=== PATIENT | male | born 1940 | race Caucasian/White ===

== ENCOUNTER 2024-10-30 10:39 | Inpatient (IN) ==
[2024-10-30] MEDS: SODIUM CHLORIDE 0.9% 1,000 ML IV ONE (11:46)
--- NOTE | 2024-10-30 11:49 | XRay Report ---
EXAM: Radiographs of the Right Ankle 3 Views INDICATION: Nonhealing wounds. TECHNIQUE: Frontal, lateral and oblique views of the right ankle. COMPARISON: No relevant prior studies available. FINDINGS: Limitations: None. Bones/joints: Well-corticated ossicle noted adjacent to the tip of the medial malleolus likely related to old fracture. No acute fracture. There is mild smooth undulation in cortical thickening of the lateral aspect of the distal fibula subjacent to the cutaneous erosion. Soft tissues: No abnormality noted. No radiopaque foreign body noted. Vasculature: There is a cutaneous ulcer over the lateral distal fibula. There is no soft tissue gas. Dense atherosclerotic calcifications present. IMPRESSION: Cutaneous ulceration noted over the lateral distal fibula. The underlying cortex is somewhat hypertrophic which may indicate chronic osteomyelitis. No definite acute destructive changes. ACT 112: N/A Electronically signed by Kenia Bergeron 10-30-2024 11:49 AM
[2024-10-30 11:50] LABS: Hematocrit (blood only) 42.5 % (42.0-52.0); Hemoglobin 14.1 g/dl (14.0-18.0); Immature Granulocytes # (auto) 0.10 K/uL (0.01-0.20); Immature Granulocytes % (auto) 0.8 %; Mean Corpuscular Hemoglobin 31.8 pg (25.0-34.0); Mean Corpuscular Volume 95.7 fL (80.0-100.0); Platelet Count 314 K/uL (130-400); RDW Standard Deviation 49.1 fL (36.4-46.3); Red Blood Count 4.44 M/uL (4.70-6.10); White Blood Count 12.84 K/ul (4.8-10.8)
--- NOTE | 2024-10-30 11:53 | XRay Report ---
EXAM: Radiographs of the Left Foot Complete 3 Views INDICATION: Nonhealing wounds TECHNIQUE: Frontal, lateral and oblique views of the left foot. COMPARISON: No relevant prior studies available. FINDINGS: Bones/joints: The bones are demineralized. There is mild joint space narrowing. There is suboptimal assessment of the fourth proximal phalanx which appears somewhat angulated. No visible periosteal reaction. Soft tissues: There is a cutaneous wound seen on the lateral view plantar to the proximal metatarsals. No tracking gas. Dense atherosclerosis. Diffuse soft tissue swelling. IMPRESSION: 1. Plantar midfoot ulcer. 2. Suboptimal assessment of the fourth proximal phalanx which could be fractured or eroded. Correlate clinically. ACT 112: N/A Electronically signed by Kenia Bergeron 10-30-2024 11:53 AM
--- NOTE | 2024-10-30 11:55 | XRay Report ---
EXAM: Radiographs of the Right Foot Complete 3 Views INDICATION: Nonhealing wounds. TECHNIQUE: Frontal, lateral and oblique views of the right foot. COMPARISON: No relevant prior studies available. 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 The bones are generally demineralized. There is mild narrowing of the joints. No erosion or fracture. Soft tissues: Mild generalized soft tissue swelling. Dense atherosclerotic calcification noted. No radiopaque foreign body identified. No tracking gas. IMPRESSION: Soft tissue swelling. Chronic changes of the osseous structures. No acute abnormality. ACT 112: N/A Electronically signed by Kenia Bergeron 10-30-2024 11:55 AM
--- NOTE | 2024-10-30 11:58 | Emergency Department Note ---
History of Present Illness General Chief complaint: Infection, Wound Time Seen by Provider: 10/30/24 10:43 History of Present Illness Provider complaint: Wound infection 84-year-old male presents emergency department for wound infection. Patient has had wounds to his feet and toes for significant amount of time which have been getting worse. [facility] for worsening of the wounds. Home Medications Medication Instructions Recorded Confirmed Type apixaban 5 mg tablet (Eliquis) 5 mg PO BID 10/30/24 10/30/24 History furosemide 20 mg tablet 20 mg PO DAILY 10/30/24 10/30/24 History insulin glargine 100 unit/mL (3 0 unit subcut HS 10/30/24 10/30/24 History mL) subcutaneous pen (Lantus Solostar U-100 Insulin) lactulose 10 gram/15 mL oral 0 ml PO BID 10/30/24 10/30/24 History solution metoprolol succinate 100 mg 0 mg PO DAILY 10/30/24 10/30/24 History tablet,extended release 24 hr spironolactone 25 mg tablet 25 mg PO BID 10/30/24 10/30/24 History trazodone 50 mg tablet 50 mg PO DAILY 10/30/24 10/30/24 History Past Med/Surg History Problem List (Updated 10/30/24 @ 16:29 by Jt Ahmadi MD) Peripheral vascular disease due to secondary diabetes Diabetic foot ulcers (Acute) Diabetic ulcer of foot associated with diabetes mellitus due to underlying condition, 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 Medical History (Updated 10/30/24 @ 16:29 by Jt Ahmadi MD) Cognitive dysfunction Hepatocellular carcinoma PVD (peripheral vascular disease) CKD (chronic kidney disease) Pulmonary emboli Dyslipidemia HTN (hypertension) Alcoholic cirrhosis Amputation toe Sepsis Atrial fibrillation Social History Smoking Status: Never smoker Preferred Language: Slovenian Feels Safe at Home: Yes Physical Exam Vital Signs Vital Signs - 24 hr 10/30/24 10:51 10/30/24 10:52 10/30/24 11:30 Temperature 36.9 C Temperature Source Oral Pulse Rate 84 84 79 Pulse Rate [Finger] Pulse Rate from SpO2 Sensor Respiratory Rate 96 H 26 H Respiratory Effort / Characteristics Non-Labored Spontaneous Respiratory Depth Normal Respiratory Pattern Regular Blood Pressure 127/72 Blood Pressure [Right Arm] Blood Pressure Mean 90 Blood Pressure Mean [Right Arm] Pulse Oximetry 96 Oxygen Delivery Method Room Air Sepsis Recent Fever Within 48 Hours No Sepsis New/Unexplained Change in Mental Status No Sepsis Action Taken by Nursing No Action Required 10/30/24 12:00 10/30/24 12:33 10/30/24 13:30 Temperature Temperature Source Pulse Rate 83 80 87 Pulse Rate [Finger] Pulse Rate from SpO2 Sensor 83 83 89 Respiratory Rate 23 27 H 30 H Respiratory Effort / Characteristics Respiratory Depth Respiratory Pattern Blood Pressure 157/92 H 123/98 Blood Pressure [Right Arm] Blood Pressure Mean 113 106 Blood Pressure Mean [Right Arm] Pulse Oximetry 97 97 96 Oxygen Delivery Method Sepsis Recent Fever Within 48 Hours Sepsis New/Unexplained Change in Mental Status Sepsis Action Taken by Nursing 10/30/24 14:15 10/30/24 14:36 10/30/24 15:00 Temperature Temperature Source Pulse Rate 93 H 86 86 Pulse Rate [Finger] Pulse Rate from SpO2 Sensor 88 84 81 Respiratory Rate 19 23 23 Respiratory Effort / Characteristics Respiratory Depth Respiratory Pattern Blood Pressure 146/99 H Blood Pressure [Right Arm] Blood Pressure Mean 114 Blood Pressure Mean [Right Arm] Pulse Oximetry 97 97 100 Oxygen Delivery Method Sepsis Recent Fever Within 48 Hours Sepsis New/Unexplained Change in Mental Status Sepsis Action Taken by Nursing 10/30/24 15:14 10/30/24 15:33 10/30/24 15:33 Temperature Temperature Source Pulse Rate 84 89 Pulse Rate [Finger] 89 Pulse Rate from SpO2 Sensor Respiratory Rate 16 16 Respiratory Effort / Characteristics Non-Labored Spontaneous Respiratory Depth Respiratory Pattern Blood Pressure Blood Pressure [Right Arm] 143/89 H Blood Pressure Mean Blood Pressure Mean [Right Arm] 107 Pulse Oximetry 95 95 Oxygen Delivery Method Room Air Room Air Sepsis Recent Fever Within 48 Hours Sepsis New/Unexplained Change in Mental Status Sepsis Action Taken by Nursing Physical Exam GENERAL: Ill-appearing. HENT: Exam performed. - Head: Normocephalic and atraumatic. CV: Normal rate, irregular rhythm, normal heart sounds. PULM/CHEST: Effort normal and breath sounds normal. No respiratory distress. No stridor. no wheezes. no rales. ABD: The abdomen is soft. There is no tenderness. MUSC: Mummified feet with multiple ulcers over the malleoli Course Course 1043: The patient was evaluated in room B8. A complete history and physical exam was performed Cardiac monitoring: An order was placed for continuous cardiac monitoring. The monitor shows a rate of 90 with atrial fibrilation rhythm interpreted by me 1236: Vital signs stable. Labs show minimally elevated lactic acid. Patient treated with broad-spectrum antibiotics. IV fluids ordered for the patient. Discussed case with Dr. Oconnell podiatry via [place] text. He states to admit to medicine and he will evaluate the patient in the morning. He states he will wait to see the if vascular has any input. 1250: Discussed the case with Dr. Burrell vascular surgery who stated to stop the Eliquis and either start the patient on heparin drip or Lovenox shots twice daily. He states he will evaluate the patient tomorrow morning. Hospitalist team was made aware of the patient. Administered Medications Discontinued Medications Sodium Chloride (Nss) 1,000 mls @ 999 mls/hr IV .Q1H1M ONE Stop: 10/30/24 12:40 Last Infusion: 10/30/24 14:20 Dose: Infused Documented By: Admin: 10/30/24 11:46 Dose: 999 mls/hr Documented By: CEF Piperacillin Sod/Tazobactam Sod (Zosyn) 4.5 gm in 120 mls @ 240 mls/hr IV NOW ONE Stop: 10/30/24 12:42 Last Infusion: 10/30/24 15:25 Dose: Infused Documented By: Admin: 10/30/24 14:19 Dose: 240 mls/hr Documented By: CEF Vancomycin HCl 2,000 mg/ (Sodium Chloride) 540 mls @ 200 mls/hr IV NOW ONE Stop: 10/30/24 14:54 Last Infusion: 10/30/24 15:25 Dose: Infused Documented By: Admin: 10/30/24 12:30 Dose: 200 mls/hr Documented By: EVA Medical Decision Making Medical Records Attestation: I reviewed the patient's medical records. External medical records reviewed and the patient's history is obtained from the [facility] chart. Patient had a lower extremity Doppler arterial study performed on November 04, 2023 which showed a right anterior tibial artery 50 to 69% stenosis and a right peroneal artery stenosis of greater than 70%. Laboratory Data Attestation: I reviewed the patient's lab results. 10/30/24 11:15 10/30/24 11:15 Lab Results 10/30/24 10/30/24 Range/Units 11:15 13:11 WBC 12.84 H (4.8-10.8) K/ul RBC 4.44 L (4.70-6.10) M/uL Hgb 14.1 (14.0-18.0) g/dl Hct 42.5 (42.0-52.0) % MCV 95.7 (80.0-100.0) fL MCH 31.8 (25.0-34.0) pg MCHC 33.2 (32.0-36.0) g/dL RDW Std Deviation 49.1 H (36.4-46.3) fL RDW Coeff of Cici 13.8 (11.5-14.5) % Plt Count 314 (130-400) K/uL MPV 9.5 (9.4-12.4) fL Immature Gran % (Auto) 0.8 % Neut % (Auto) 73.3 % Lymph % (Auto) 12.8 % Story % (Auto) 11.1 % Eos % (Auto) 1.5 % Baso % (Auto) 0.5 % Neut # (Auto) 9.43 H (1.40-6.50) K/uL Lymph # (Auto) 1.64 (1.20-3.40) K/uL Story # (Auto) 1.42 H (0.11-0.59) K/uL Eos # (Auto) 0.19 (0.00-0.50) K/uL Baso # (Auto) 0.06 (0.00-0.20) K/uL Immature Gran # (Auto) 0.10 (0.01-0.20) K/uL PT 14.1 H (9.0-12.0) Seconds INR 1.3 H (0.9-1.1) APTT 37 H (21-31) Seconds PTT Ratio 1.4 Sodium 131 L (136-145) mmol/L Potassium 4.6 (3.5-5.1) mmol/L Chloride 97 L (98-107) mmol/L Carbon Dioxide 29 (21-32) mmol/L Anion Gap 5 (3-11) BUN 20 (6-23) mg/dl Creatinine 0.86 (0.6-1.4) mg/dl Est Cr Clr Drug Dosing 79.3 ml/min eGFR 86.45 BUN/Creatinine Ratio 23.3 H (10-20) Glucose 186 H (70-99(Fasting)) mg/dl Lactate 2.6 H* 1.9 (0.4-2.0) mmol/L Calcium 9.5 (8.6-10.3) mg/dl Procalcitonin 0.33 (0-0.5) ng/ml Imaging Data Radiologist's Impression: Ankle X-Ray 10/30/24 10:50 EXAM: Radiographs of the Left Ankle 3 Views INDICATION: Nonhealing wounds TECHNIQUE: Frontal, lateral and oblique views of the left ankle. COMPARISON: No relevant prior studies available. FINDINGS: Limitations: None. Bones/joints: Probable old fracture of the distal tibia. No acute fracture. No periosteal reaction or erosion. Soft tissues: There is diffuse mild soft tissue swelling. There is a skin defect plantar to the level of the proximal metatarsal seen on the lateral view. Dense atherosclerotic calcification present. No tracking soft tissue gas. No radiopaque foreign body. IMPRESSION: 1. Mild soft tissue swelling. With plantar midfoot wound. 2. No acute osseous abnormality. ACT 112: N/A Electronically signed by Kenia Bergeron 10-30-2024 11:56 AM Ankle X-Ray 10/30/24 10:50 EXAM: Radiographs of the Right Ankle 3 Views INDICATION: Nonhealing wounds. TECHNIQUE: Frontal, lateral and oblique views of the right ankle. COMPARISON: No relevant prior studies available. FINDINGS: Limitations: None. Bones/joints: Well-corticated ossicle noted adjacent to the tip of the medial malleolus likely related to old fracture. No acute fracture. There is mild smooth undulation in cortical thickening of the lateral aspect of the distal fibula subjacent to the cutaneous erosion. Soft tissues: No abnormality noted. No radiopaque foreign body noted. Vasculature: There is a cutaneous ulcer over the lateral distal fibula. There is no soft tissue gas. Dense atherosclerotic calcifications present. IMPRESSION: Cutaneous ulceration noted over the lateral distal fibula. The underlying cortex is somewhat hypertrophic which may indicate chronic osteomyelitis. No definite acute destructive changes. ACT 112: N/A Electronically signed by Kenia Bergeron 10-30-2024 11:49 AM Foot X-Ray 10/30/24 10:50 EXAM: Radiographs of the Left Foot Complete 3 Views INDICATION: Nonhealing wounds TECHNIQUE: Frontal, lateral and oblique views of the left foot. COMPARISON: No relevant prior studies available. FINDINGS: Bones/joints: The bones are demineralized. There is mild joint space narrowing. There is suboptimal assessment of the fourth proximal phalanx which appears somewhat angulated. No visible periosteal reaction. Soft tissues: There is a cutaneous wound seen on the lateral view plantar to the proximal metatarsals. No tracking gas. Dense atherosclerosis. Diffuse soft tissue swelling. IMPRESSION: 1. Plantar midfoot ulcer. 2. Suboptimal assessment of the fourth proximal phalanx which could be fractured or eroded. Correlate clinically. ACT 112: N/A Electronically signed by Kenia Bergeron 10-30-2024 11:53 AM Foot X-Ray 10/30/24 10:50 EXAM: Radiographs of the Right Foot Complete 3 Views INDICATION: Nonhealing wounds. TECHNIQUE: Frontal, lateral and oblique views of the right foot. COMPARISON: No relevant prior studies available. 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 The bones are generally demineralized. There is mild narrowing of the joints. No erosion or fracture. Soft tissues: Mild generalized soft tissue swelling. Dense atherosclerotic calcification noted. No radiopaque foreign body identified. No tracking gas. IMPRESSION: Soft tissue swelling. Chronic changes of the osseous structures. No acute abnormality. ACT 112: N/A Electronically signed by Kenia Bergeron 10-30-2024 11:55 AM ECG Data Attestation: I personally reviewed and interpreted this ECG as follows: Rate (beats per minute): 89 Rhythm: + atrial fibrillation ECG Intervals/blocks: + Normal QRS and + Normal QT-c ECG ST segments: + Normal ST segments and + T-wave inversions (Leads II aVF V4 V5 V6) [facility] Narrative 1043: The patient was evaluated in room B8. A complete history and physical exam was performed Cardiac monitoring: An order was placed for continuous cardiac monitoring. The monitor shows a rate of 90 with atrial fibrilation rhythm interpreted by me 1236: Vital signs stable. Labs show minimally elevated lactic acid. Patient treated with broad-spectrum antibiotics. IV fluids ordered for the patient. Discussed case with Dr. Oconnell podiatry via [place] text. He states to admit to medicine and he will evaluate the patient in the morning. He states he will wait to see the if vascular has any input. 1250: Discussed the case with Dr. Burrell vascular surgery who stated to stop the Eliquis and either start the patient on heparin drip or Lovenox shots twice daily. He states he will evaluate the patient tomorrow morning. Hospitalist team was made aware of the patient. Impression & Plan Diabetic foot ulcers Discharge Plan Visit Data Chief Complaint: Infection, Wound ED Provider: Jt Ahmadi Discharge Problem: Diabetic foot ulcers Patient Disposition: Admitted As Inpatient Condition: Fair Forms Stand Alone Forms: My [facility] Prescriptions Prescriptions: No Action trazodone 50 mg tablet 50 mg PO DAILY metoprolol succinate 100 mg tablet extended release 24 hr 0 mg PO DAILY Patient Comments: 10/30-last filled 05/17 90 day supply #90 spironolactone 25 mg tablet 25 mg PO BID furosemide 20 mg tablet 20 mg PO DAILY insulin glargine [Lantus Solostar U-100 Insulin] 100 unit/mL (3 mL) insulin pen 0 unit SUBCUT HS Patient Comments: 10/30- filled 05/04 84 day supply as 18 u subcut hs Eliquis 5 mg tablet 5 mg PO BID lactulose 10 gram/15 mL solution 0 ml PO BID Patient Comments: 10/30- last filled 07/19 32 day supply. 15ml po bid Referrals Referrals: Adonay Arzola MD [Primary Care Provider] -
[2024-10-30 12:11] LABS: Anion Gap 5.0 (3-11); Blood Urea Nitrogen 20.0 mg/dl (6-23); Calcium 9.5 mg/dl (8.6-10.3); Carbon Dioxide 29.0 mmol/L (21-32); Chloride 97.0 mmol/L (98-107); Creatinine Clr Calc Pharmacy 79.3 ml/min; Glucose 186.0 mg/dl (70-99(Fasting)); Potassium 4.6 mmol/L (3.5-5.1); Sodium 131.0 mmol/L (136-145)
[2024-10-30] MEDS ORDERED: VANCOMYCIN CONSULT ACTIVE PRN (12:13)
[2024-10-30 12:20] LABS: INR 1.3 (0.9-1.1); Partial Thromboplastin Time 37 Seconds (21-31); Prothrombin Time 14.1 Seconds (9.0-12.0)
[2024-10-30] MEDS: VANCOMYCIN HCL 2,000 MG in SODIUM CHLORIDE 0.9% 500 ML IV ONE (12:30)
--- NOTE | 2024-10-30 13:56 | History & Physical Report ---
Date of Service October 30, 2024 Assessment & Plan (1) Diabetic ulcer of foot associated with diabetes mellitus due to underlying condition, with necrosis of muscle: (2) Diabetic foot ulcers: (3) Insulin-requiring or dependent type II diabetes mellitus: (4) Atrial fibrillation: (5) Peripheral vascular disease due to secondary diabetes: Plan Patient 84-year-old gentleman resident [facility] presents with worsening diabetic foot ulcerations and evidence of necrosis of the left toes. Patient requires hospital level care and interventions, IV antibiotics and specialty consultation Admit to the MedSurg unit Continue Zosyn and vancomycin Consult podiatry Consult vascular surgery Monitor glucose and cover with insulin, request pharmacy management Hold Eliquis, communication with vascular surgery okay to proceed with Lovenox twice daily, will hold if any type of procedure anticipated. Anticipate patient may need send asked surgeries prior to any type of surgical intervention on the foot. High suspicion patient will need surgical intervention on foot and most likely amputation of the toes at minimum. Therapy evaluation Case management to coordinate return to [facility] History of Present Illness Chief Complaint: Black foot Primary Care Provider: Adonay Arzola MD Patient 84-year-old gentleman resident at [facility] sent send to the emergency room with increasing severity of wounds on his foot and toes becoming necrotic. In the emergency room patient had obvious necrotic toes and slightly elevated white blood cell count. Was referred to our service for further evaluation and treatment after received some IV antibiotics. ED physician did send pictures to podiatry and vascular surgery. They recommended continuing antibiotics and will evaluate for possible interventions tomorrow. Time my evaluation patient really did have any complaints. He really could not contribute much at all to his history. He denied any specific pain. Not sure when he started noticed the feet were black. Reviewing minimal records sent from the nursing facility indicated that of the foot seem to acutely worsen over the last 24 hours or so. Extremely limited information sent from the [facility]. Home Medications Medication Instructions Recorded Confirmed Type apixaban 5 mg tablet (Eliquis) 5 mg PO BID 10/30/24 10/30/24 History furosemide 20 mg tablet 20 mg PO DAILY 10/30/24 10/30/24 History insulin glargine 100 unit/mL (3 0 unit subcut HS 10/30/24 10/30/24 History mL) subcutaneous pen (Lantus Solostar U-100 Insulin) lactulose 10 gram/15 mL oral 0 ml PO BID 10/30/24 10/30/24 History solution metoprolol succinate 100 mg 0 mg PO DAILY 10/30/24 10/30/24 History tablet,extended release 24 hr spironolactone 25 mg tablet 25 mg PO BID 10/30/24 10/30/24 History trazodone 50 mg tablet 50 mg PO DAILY 10/30/24 10/30/24 History Past Med/Surg History Problem List (Updated 10/30/24 @ 13:54 by Ed Edwards DO) Peripheral vascular disease due to secondary diabetes Diabetic foot ulcers Diabetic ulcer of foot associated with diabetes mellitus due to underlying condition, 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 Medical History (Updated 10/30/24 @ 13:54 by Ed Edwards DO) Sepsis Atrial fibrillation Social History Smoking Status: Never smoker Preferred Language: [place] Rican Feels Safe at Home: Yes Review of Systems Review of Systems: Pertinent positive and negative review of systems as mentioned in the HPI Physical Exam Physical Exam: Constitutional: Alert, ill in appearance, nontoxic HEENT: Mucous membranes moist. Sclera clear Neck: Soft, no adenopathy Lungs: Clear to auscultation, decreased, no wheezes rales or rhonchi CV: S1-S2, regular Abdomen: Soft, nontender, nondistended Extremities: No significant edema Musculoskeletal: Multiple open wounds on both feet, toes 2 through 5 on the left foot are necrotic and dry gangrene. There is some swelling and redness of the forefoot. Minimal tenderness Neuro: No focal deficits Psych: Cooperative, normal mood Results & Data Results & Data Vital Signs (Past 12 Hours) Vital Signs Temp Pulse Resp BP Pulse Ox O2 Del Method 10/30/24 10:52 84 10/30/24 10:51 36.9 C 84 96 H 127/72 96 Room Air Diagnostic Findings Reviewed imaging, laboratory and diagnostic studies. Pertinent findings as below. WBCs 12.8 Hemoglobin 14.1 Platelets of 314 INR 1.3 Sodium 131 Creatinine 0.86 Glucose 186 X-rays of the foot and ankle reviewed Blood cultures pending Code Status & VTE Plan VTE Prophylaxis Plan VTE Prophylaxis will be ordered: Yes
[2024-10-30] MEDS: PIPERACILLIN/TAZOBACTAM 4.5 GM/120 ML BAG IV ONE (14:19)
[2024-10-30] MEDS ORDERED: ONDANSETRON INJ 2 MG/ML 2 ML VIAL IV PRN (18:30)
[2024-10-30] MEDS ORDERED: MAGNESIUM HYDROXIDE SUSP 30 ML UDC PO PRN (18:30)
[2024-10-30] MEDS ORDERED: DEXTROSE 50% 50 ML SYRINGE IV PRN (18:30)
[2024-10-30] MEDS ORDERED: GLUCOSE 10 TAB/TUBE PO PRN (18:30)
[2024-10-30] MEDS ORDERED: PHARMACY GLYCEMIC MGMT CONSULT PRN (18:30)
[2024-10-30] MEDS ORDERED: GLUCOSE 40% GEL 15 GM TUBE PO PRN (18:30)
[2024-10-30] MEDS ORDERED: ACETAMINOPHEN 325 MG TAB PO PRN (18:30)
[2024-10-30] MEDS ORDERED: ALUMINUM/MAGNESIUM SUSP 30 ML UDC PO PRN (18:30)
[2024-10-30] MEDS ORDERED: GLUCAGON FOR INJ 1 MG VIAL SQ PRN (18:30)
[2024-10-30] MEDS ORDERED: CARBOHYDRATES FOR HYPOGLYCEMIA PO PRN (18:30)
[2024-10-30] MEDS: SPIRONOLACTONE 25 MG TAB PO SCH (20:11)
[2024-10-30] MEDS: LANTUS PER UNIT CHARGE SC SCH (20:17)
[2024-10-30] MEDS: INSULIN ASPART PER UNIT CHARGE SC SCH ×2 (20:17→23:34)
[2024-10-30] MEDS: MELATONIN 3 MG TAB PO PRN (20:18)
[2024-10-30] MEDS: PIPERACILLIN/TAZOBACTAM 4.5 GM/100 ML BAG IV SCH (20:29)
[2024-10-30] MEDS: ENOXAPARIN 100 MG/1ML SYR SQ SCH (20:29)
[2024-10-30] MEDS ORDERED: NON-FORMULARY MEDICATION (Insulin Glargine [Lantus Solostar U-100 Insulin] 100 unit/mL (3 SQ SCH (21:00)
[2024-10-30] MEDS ORDERED: ENOXAPARIN 1 MG/KG SC SCH (21:00)
[2024-10-30] MEDS: LACTULOSE SYRUP 20 GM/30 ML UDC PO SCH (22:01)
[2024-10-30] MEDS: LACTULOSE SYRUP 10 GM/15 ML BTL 960 ML PO SCH (22:01)
[2024-10-30] MEDS ORDERED: Nursing to Pharmacy Communication SCH (23:30)
[2024-10-31] MEDS: VANCOMYCIN HCL / NSS 1,000 MG/270 ML BAG IV SCH (00:21)
[2024-10-31] MEDS: LEVALBUTEROL 1.25 MG/3 ML NEB NEB PRN (00:27)
--- NOTE | 2024-10-31 01:19 | XRay Report ---
EXAM: XR chest 1V portable CLINICAL HISTORY: Cough. TECHNIQUE: An X-ray image of the chest is obtained in AP projection. COMPARISON: No prior studies are available for comparison. FINDINGS: Pulmonary Parenchyma: Hilar and perihilar congestion. Inhomogeneous opacification with nodular opacities identified in the right mid-lower and left lower zone. Obliteration of the right costophrenic angle. Blunting of the left costophrenic angle is seen. Heart and Mediastinum: Heart size is enlarged. No mediastinal widening or masses. No hilar or mediastinal lymphadenopathy. Bony Thorax: Bony thorax appears intact without fractures or deformities. Osteoarthritic changes at the right glenohumeral joint. Degenerative changes are seen in the spine. Soft Tissues: Soft tissues overlying the chest wall are unremarkable. IMPRESSION: 1. The above-described imaging appearances are suggestive of congestive changes with bilateral pleural effusion and underlying consolidation/collapse. Needs clinical correlation and follow-up. 2. Cardiomegaly. Electronically signed by Vamshi Samson 10-31-2024 01:17 AM
[2024-10-31] MEDS: NYSTATIN POWDER 15GM BTL EXT PRN (04:01)
[2024-10-31 07:00] LABS: Hematocrit (blood only) 39.7 % (42.0-52.0); Hemoglobin 13.1 g/dl (14.0-18.0); Mean Corpuscular Hemoglobin 32.0 pg (25.0-34.0); Mean Corpuscular Volume 97.1 fL (80.0-100.0); Platelet Count 268 K/uL (130-400); RDW Standard Deviation 48.8 fL (36.4-46.3); Red Blood Count 4.09 M/uL (4.70-6.10); White Blood Count 11.21 K/ul (4.8-10.8)
[2024-10-31 07:20] LABS: Anion Gap 6.0 (3-11); Blood Urea Nitrogen 17.0 mg/dl (6-23); Calcium 9.2 mg/dl (8.6-10.3); Carbon Dioxide 27.0 mmol/L (21-32); Chloride 98.0 mmol/L (98-107); Creatinine Clr Calc Pharmacy 92.0 ml/min; Glucose 119.0 mg/dl (70-99(Fasting)); Potassium 4.2 mmol/L (3.5-5.1); Sodium 131.0 mmol/L (136-145)
--- NOTE | 2024-10-31 07:37 | Podiatry Consultation ---
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 No drai nage or malodor. WBC 11.21. -Patient continues on IV vancomycin and Zosyn for empiric coverage. Blood cultures 10/30/2024 pending. No reasonable location for soft tissue culture at this time. -[place] with Betadine daily and leave exposed to air. Avoid pressure including direct contact from blankets with foot tent. -Will await vascular surgery recommendations prior to discussing possible surg ical options. Order: Waffle boots to be worn at all times in bed to help reduce repetitive pressure aggravation to the lateral malleoli wounds. Dressing recommendations: Left foot gangrenous digits: [place] with Betadine daily and leave exposed to air. Avoid pressure including direct contact from blankets with foot tent. Right foot amputation site: [place] with Betadine once daily leave exposed to air. Left lateral ankle and leg wounds dressed with Aquacel Ag and bordered foam every other day Right lateral ankle wound: [place] with Betadine and leave exposed to air. History of Present Illness Reason for Consultation: Gangrene left foot Attending Physician: Nelly Monzon MD History of Present Illness 84-year-old male resident at [facility] sent to [facility] emergency department with advancing gangrenous changes to the left foot. Patient reports changing color to the left toes over the past 3 weeks which apparently has advanced significantly in the past 48 hours. He denies pain to the left foot. 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 He is unclear whether or not he had any vascular intervention of the right lower extremity prior to this procedure but he does recall vascular studies being performed. Nonambulatory patient. Limited use of feet for transfer. Reports using [place] lift for transfers and is wheelchair-bound when able to get into a wheelchair. Home Medications Medication Instructions Recorded Confirmed Type apixaban 5 mg tablet (Eliquis) 5 mg PO BID 09/01/25 09/01/25 History furosemide 20 mg tablet 20 mg PO DAILY 10/30/24 10/30/24 History insulin glargine 100 unit/mL (3 0 unit subcut HS 10/30/24 10/30/24 History mL) subcutaneous pen (Lantus Solostar U-100 Insulin) lactulose 10 gram/15 mL oral 0 ml PO BID 10/30/24 10/30/24 History solution metoprolol succinate 100 mg 0 mg PO DAILY 10/30/24 10/30/24 History tablet,extended release 24 hr spironolactone 25 mg tablet 25 mg PO BID 10/30/24 10/30/24 History trazodone 50 mg tablet 50 mg PO DAILY 10/30/24 10/30/24 History Patient History Medical History (Updated 10/31/24 @ 11:10 by NASIM Jessica) History of pulmonary embolism Chronic hyponatremia PAF (paroxysmal atrial fibrillation) Cognitive dysfunction Hepatocellular carcinoma PVD (peripheral vascular disease) CKD (chronic kidney disease) Pulmonary emboli Dyslipidemia HTN (hypertension) Alcoholic cirrhosis Amputation toe Sepsis Atrial fibrillation Social History Smoking Status: Never smoker Second Hand Exposure: No; Do You Dip or Chew Tobacco: No; Hx Alcohol Use: No Hx Substance Use: No Preferred Language: [place] Communication Ability: Effective Outpatient Facility Physical Therapist Required: No Beliefs That Will Affect Care: None Current Living Situation: [facility] Current Living Situation Comment: [facility] [place] Other Information That Helps Us Care for You: No Feels Safe at Home: Yes Safety Concerns: Feels Safe At This Time Assistive Devices: None Review of Systems Review of Systems: Denies nausea, vomiting, fever, chills, shortness of breath, chest pain. Denies pain in the bilateral foot. All remaining systems reviewed and negative unless otherwise stated in HPI. Physical Exam Physical Exam: Focused lower extremity exam: Thin atrophic skin with loss of hair growth bilateral lower extremity below the knee. 3 out of 5 muscle strength at the level of the ankle to all muscle groups bilateral. Left foot: Nonpalpable pedal pulses. -Dry gangrene of the 2nd through 5th toe s of the left foot. Gangrene extends into the forefoot laterally surrounding the head of the fifth metatarsal. Well- demarcated borders. No active drainage. No malodor. Erythema to the left foot extends to the anterior ankle. -Stage IV pressure injury overlying the lateral malleolus with mild maceration of surrounding epithelial tissue. No periwound signs of local soft tissue infection. No active drainage or malodor. -Stage II pressure injury to the posteri or lateral left leg with mixed fibrotic slough and eschar tissue to the wound bed. No active drainage. No signs of local soft tissue infection. Scant serous drainage to dressing. Right foot: Nonpalpable pedal pulses. -Stable eschar overlying incision from p revious partial 4th and 5th ray amputation. Surrounding soft tissue stained with Betadine. No active drainage or signs of local soft tissue infection. -There is an unstageable pressure injury overlying the lateral malleolus with mild maceration of periwound epithelial tissue. No active drainage. No signs of local soft tissue infection. Results & Data Vital Signs (Past 12 Hours) Vital Signs Temp Pulse Resp BP BP Pulse Ox O2 Del Method 10/31/24 00:27 86 18 96 Room Air 10/30/24 23:00 36.1 C L 86 14 134/76 95 Room Air 10/30/24 22:50 Room Air 10/30/24 20:10 67 141/87 H 10/30/24 19:45 Room Air Diagnostic Findings X-ray left foot 3 views 10/30/2024:IMPRESSION: 1. Plantar midfoot ulcer. 2. Suboptimal assessment of the fourth proximal phalanx which could be fractured or eroded. Correlate clinically. X-ray left ankle 3 views 10/30/2024:IMPRESSION: 1. Mild soft tissue swelling. With plantar midfoot wound. 2. No acute osseous abnormality. X-ray right foot 3 views 10/30/2024:IMPRESSION: Soft tissue swelling. Chronic changes of the osseous structures. No acute abnormality. X-ray right ankle 3 views 10/30/2024: FINDINGS: Limitations: None. Bones/joints: Well-corticated ossicle noted adjacent to the tip of the medial malleolus likely related to old fracture. No acute fracture. There is mild smooth undulation in cortical thickening of the lateral aspect of the distal fibula subjacent to the cutaneous erosion. Soft tissues: No abnormality noted. No radiopaque foreign body noted. Vasculature: There is a cutaneous ulcer over the lateral distal fibula. There is no soft tissue gas. Dense atherosclerotic calcifications present. IMPRESSION: Cutaneous ulceration noted over the lateral distal fibula. The underlying cortex is somewhat hypertrophic which may indicate chronic osteomyelitis. No definite acute destructive changes. 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
[2024-10-31 07:53] LABS: Hemoglobin A1C 5.8 % (4.5-5.6)
[2024-10-31] MEDS: METOPROLOL SUCC 50MG EXT REL TAB PO SCH (08:15)
[2024-10-31] MEDS: FUROSEMIDE 20 MG TAB PO SCH (08:15)
--- NOTE | 2024-10-31 10:59 | Hospitalist Progress Note ---
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 Has been at [facility] since 08/25/24 after an admission to [facility] for right knee septic arthritis. Cultures grew group B strep and patient completed Ceftriaxone on 09/13/24. Patient also with history of PVD - follows with [facility] vascular - S/P R ADRIAN & Peroneal angioplasties and right 5th toe amp on 04/09/[address] Mina for severe PAD & gangrene right 5th toe. S/P R Peroneal angioplasty, right 5th MTH amputation, right 4th toe proximal metatarsal amputation on 07/05/[address] Mina for PAD, OM of 5th metatarsal and necrosis of 4th right toe. Podiatry and vascular consults Arterial US ordered Continue empiric IV Zosyn and IV Vanco Blood cultures NGTD, Nasal MRSA +, No open areas or drainage to culture Does not appear septic (2) Insulin-requiring or dependent type II diabetes mellitus: Plan: Hgb A1c 5.8 Lantus/Novolog while hospitalized (3) PAF (paroxysmal atrial fibrillation): Plan: Rate controlled on metoprolol Anticoagulated with Eliquis - currently on Lovenox bridge in the event of procedure (4) Chronic hyponatremia: Plan: Due to underlying liver cirrhosis Na+ 131 Continue to monitor (5) History of pulmonary embolism: Plan: Lovenox bridge as above (6) Alcoholic cirrhosis: Plan: Appears compensated Continue Lasix/Spironolactone, lactulose DVT PROPHYLAXIS Therapeutic dose Lovenox as above Dispo: Anticipate d/c back to [facility] once medically stable, awaiting vascular eval I spent a total of 35 minutes coordinating, documenting, and providing care for this patient excluding time spent in the performance of separately billed services. This included personally reviewing all current laboratories and imaging studies, medication reconciliation, outpatient chart review, and discussion with specialists. Admission and Anticipated Discharge Date Admission Date: October 30, 2024 Supervising Physician Co-Signing Physician Notes Patient seen and examined Agree with findings and plans as detailed by Teresa ROUSE Subjective Follow up for gangrene of left foot. Patient seen and examined. Resting in bed. Sleeping but arouses easily to verbal stimuli. Poor historian. Denies any pain. Offers no complaints. Physical Exam Constitutional: no acute distress chronically ill appearing Respiratory: normal respiratory effort, lungs clear to auscultation Cardiovascular: Rate/Rhythm: regular rate and regular rhythm Extremities: + edema (+1-2 edema BLE) Skin: Left 2-5 toes necrotic extending past the MPJs with mild surrounding erythema, no drainage Neurologic: no focal motor deficits Psychiatric: Orientation: oriented x 3 Insight: + limited insight sleeping but arouses easily to verbal stimuli, poor historian Results & Data Results & Data Vital Signs (Past 12 Hours) Vital Signs Temp Pulse Resp BP Pulse Ox O2 Del Method 10/31/24 09:20 Room Air 10/31/24 07:45 36.7 C 78 20 150/92 H 96 Room Air 10/31/24 00:27 86 18 96 Room Air 10/30/24 23:00 36.1 C L 86 14 134/76 95 Room Air Laboratory Results Short CBC 10/30/24 10/31/24 Range/Units 11:15 05:58 WBC 12.84 H 11.21 H (4.8-10.8) K/ul Hgb 14.1 13.1 L (14.0-18.0) g/dl Hct 42.5 39.7 L (42.0-52.0) % Plt Count 314 268 (130-400) K/uL [facility] 10/30/24 10/31/24 11:15 05:58 Sodium 131 L 131 L Potassium 4.6 4.2 Chloride 97 L 98 Carbon Dioxide 29 27 BUN 20 17 Creatinine 0.86 0.73 Glucose 186 H 119 H Calcium 9.5 9.2
[2024-10-31] MEDS: VANCOMYCIN LEVEL ONE (11:49)
--- NOTE | 2024-10-31 12:14 | Ultrasound Report ---
US arterial duplex LE LT CLINICAL HISTORY: necrotic foot COMPARISON STUDY: No previous studies for comparison. FINDINGS: There was triphasic flow within the left common femoral artery. Peak velocities measured 87 cm/s. There was triphasic flow within the left profunda artery. There is triphasic flow within the left superficial femoral artery. Peak systolic velocities measured 78 cm/s. There was biphasic flow within the left popliteal artery. The peak systolic velocities measured 57 cm /s. There is mixed monophasic and biphasic flow within the posterior tibial with a peak systolic velocity of 79 cm/s. There was monophasic flow within the left anterior tibial, with a peak systolic velocity of 67 cm/s. There is monophasic flow within the left peroneal artery which was poorly visualized. There are areas of possible peroneal artery occlusion. The systolic velocity was 42 cm/s. There is monophasic dorsalis pedis systolic velocity 40 cm/s. IMPRESSION: 1. No evidence of stenosis within the common femoral superficial femoral or popliteal arteries 2. Poor visualization of the calf vessels. Segmental occlusions of the peroneal artery cannot be excl uded. ACT 112: Negative or not required by law. Electronically signed by: Sumeet Stevens M.D. 10/31/2024 12:12 PM
--- NOTE | 2024-10-31 12:58 | Pharmacy Report ---
Pharmacy PK ABX Note - Date of Service October 31, 2024 - Assessment and Plan Assessment 84 year old M receiving vancomycin/zosyn for diabetic foot infection. Patient with tissue necrosis/gangrene of left toes hx of PVD. Previous admission at OSH for R knee septic arthritis and completed course of ceftriaxone on 09/13/24. Podiatry and vascular consulted, patient NPO for possible intervention. Blood cultures pending. Plan Vancomycin * Loading dose: 2000 mg IV x 1 * Maintenance dose: 1000 mg IV every 12 hours * Regimen is predicted to achieve target AUC/JAIDEN of 400-600 mg/L.hr * Vancomycin ordered only as empiric - will order level if plan is to continue >48 hours Pharmacy will continue to follow and will adjust dose/frequency as necessary. Thank you. Pharmacy has transitioned to AUC monitoring for vancomycin. AUC/JAIDEN is the preferred PK/PD target and is associated with decreased risk of nephrotoxicity compared to traditional trough targets.
--- NOTE | 2024-10-31 13:14 | Pharmacy Report ---
Pharmacy Glycemic Short Note 2 - Date of Service October 31, 2024 - Glycemic Short BSG Results (Last 24 hours): 10/30/24 10/30/24 10/30/24 18:11 20:11 22:47 Glucose POC Glucose 170 H 176 H 130 H 10/31/24 10/31/24 10/31/24 05:58 06:03 11:53 Glucose 119 H POC Glucose 112 H 116 H OUTPATIENT ANTIDIABETIC REGIMEN: * Lantus 18 units HS ASSESSMENT: * 84 year old admitted with DM foot infection. Pharmacy consulted for glycemic management. Patient is type 2 diabetic - NPO for possible surgical intervention. Did receive Lantus 18 units HS last evening. Fasting BSG 112 mg/dL. Blood sugars stable today. Will add a reduced scale for Lantus at HS for ongoing NPO status PLAN FOR INPATIENT GLYCEMIC CONTROL: * Hold outpatient oral diabetes medications * Basal insulin * Lantus 0-10 units HS * Bolus insulin * NovoLog per scale ACHS or Q6hrs while NPO * Goal Range: Low 110 mg/dL - High 140 mg/dL * Correction Factor: 30 mg/dL/unit * Nutritional / Prandial insulin per carb ratio of 1 unit per 10 grams CHO consumed
--- NOTE | 2024-10-31 14:38 | Vascular Surgery Consultation ---
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 Calf vessels poorly visualized on the left, however do have monophasic flow, with NOA of 0.95., however may be falsely elevated. -On exam, monophasic flow noted with doppler in DP to midfoot, as well as monophasic flow noted to peroneal artery. Signal difficult to appreciate down to base of digits. PT difficulty to assess due to patient's limited mobility at time of exam. -continue local wound care per podiatry -Will discuss with Dr. Burrell, however may need angio with possible revascularization prior to amputation. (2) Atrial fibrillation: -on Eliquis at home -currently on Lovenox while inpatient in anticipation of procedures- appreciate switch while inpatient (3) Insulin-requiring or dependent type II diabetes mellitus: -continue blood glucose control History of Present Illness Reason for Consultation: Necrotic left foot Attending Physician: Nelly Monzon MD History of Present Illness Mr. Neal is an 84 year old male with PMHx significant for atrial fibrillation (on eliquis), insulin dependent diabetes, hyperlipidemia, PVD with history of right 4th and 5th ray amputations several years ago, pulmonary emboli, CKD, and HCC who was admitted from [facility] yesterday with worsening of his left foot gangrenous toes. History obtained from both patient and the chart. He was sent to ED with worsening of known necrotic toes. He is unsure of how long his toes have been black, however did tell me that they have gotten acutely worse over the past week or so, although notes from [facility] suggest acute worsening of toes over the weekend. He was placed on IV antibiotics (vanco and zosyn) and admitted to hospitalist group. He denies any pain in his feet at this time. He denies history of smoking or cardiac disease. He denies fevers, chills, nausea or vomiting. He does have history of afib and is on Eliquis at facility. He is non-ambulatory overall, only using feet for help with transfers, and if he is out of bed he is in a wheelchair at his facility. He has history of PVD and has seen [facility] vascular surgery in 2023 (right ADRIAN and peroneal angioplasties 04/2023, 06/2023, according to chart) for revascularization prior to multiple toe amputations with osteomyelitis. In the ED he was noted to have slight leukocytosis, which is improving on antibiotics. Blood cultures no growth to date. He has been seen by podiatry and underwent arterial duplex this morning. Arterial duplex overall demonstrates patent arteries in the proximal left lower extremity, with flow noted in all three below knee vessels, although monophasic and poorly visualized. Notable labs this AM Cr 0.73, WBC 11.21, INR 1.3, PTT 37 In talking with nursing, a maggot was noted on foot while she was doing wound care this morning. Home Medications Medication Instructions Recorded Confirmed Type apixaban 5 mg tablet (Eliquis) 5 mg PO BID 10/30/24 10/31/24 History furosemide 20 mg tablet 20 mg PO DAILY 10/30/24 10/31/24 History insulin glargine 100 unit/mL (3 18 unit subcut HS 10/30/24 10/31/24 History mL) subcutaneous pen (Lantus Solostar U-100 Insulin) lactulose 10 gram/15 mL oral 15 ml PO BID 10/30/24 10/31/24 History solution metoprolol succinate 100 mg 100 mg PO DAILY 10/30/24 10/31/24 History tablet,extended release 24 hr spironolactone 25 mg tablet 12.5 mg PO DAILY 10/30/24 10/31/24 History trazodone 50 mg tablet 50 mg PO DAILY 10/30/24 10/31/24 History acetaminophen 500 mg tablet 1,000 mg PO TID 10/31/24 10/31/24 History (Tylenol Extra Strength) aspirin 81 mg tablet 81 mg PO DAILY 10/31/24 10/31/24 History sennosides 8.6 mg-docusate sodium 2 tab-cap PO HS 10/31/24 10/31/24 History 50 mg tablet (Senna-S) tramadol 50 mg tablet 50 mg PO Q6H PRN Pain 10/31/24 10/31/24 History Patient History Medical History History of pulmonary embolism Chronic hyponatremia PAF (paroxysmal atrial fibrillation) Cognitive dysfunction Hepatocellular carcinoma PVD (peripheral vascular disease) CKD (chronic kidney disease) Pulmonary emboli Dyslipidemia HTN (hypertension) Alcoholic cirrhosis Amputation toe Sepsis Atrial fibrillation Social History Smoking Status: Never smoker Second Hand Exposure: No; Do You Dip or Chew Tobacco: No; Hx Alcohol Use: No Hx Substance Use: No Preferred Language: [place] Citizen Communication Ability: Effective 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 Beliefs That Will Affect Care: None Current Living Situation: Retirement Current Living Situation Comment: [facility] Other Information That Helps Us Care for You: No Feels Safe at Home: Yes Safety Concerns: Feels Safe At This Time Assistive Devices: None Review of Systems Constitutional: denies fevers or chills Respiratory: no shortness of breath, coughing, wheezing Cardiovascular: Additional Comments: positive for afib, negative for chest pain, dyspnea on exertion, palpitations, denies history of heart attack Musculoskeletal: no muscle or joint pain, positive for dry gangrene left foot (2nd, 3rd, 4th, 5th digits) Integumentary: positive for bilateral lower extremity pressure wounds, positive for wound healing difficulty Neurologic: denies history of stroke Hematologic / Lymphatic: has history of PE Physical Exam Constitutional: sleeping and difficult to arouse, appears lethargic Eyes: PERRL bilaterally Neck: supple, trachea midline Respiratory: no accessory muscle use or retractions, CTA bilaterally no wheezes, rales or rhonchi Cardiovascular: RRR, no murmurs noted no carotid bruits appreciated, but limited by exam and patient's cooperation 2+ femoral pulses bilaterally unable to palpate DP bilaterally monophasic DP signal noted to midfoot bilaterally, monophasic peroneal signal noted on left. Difficult to obtain signals in left PT due to patient positioning and cooperation. Gastrointestinal (Abdomen): obese, non distended, + bowel sounds, no bruits appreciated, no tenderness. Musculoskeletal: Right foot: able to move digits 1, 2 and 3. 4th and 5th ray amputation present. Left foot: 1st digit only able to move. able to move foot at ankle. no tenderness to palpation over either foot or leg. Skin: Right foot: eschar noted over prior partial 4th and 5th ray amputation site, betadine paint noted to area. Right ankle: lateral malleolus with pressure wound approximately 1.5 inch x 1.5 inch. No drainage noted, no surrounding erythema. Left lower extremity: pressure wound noted at posterolateral calf (approximately 2 inch x 1 inch) with slough present, no surrounding erythema and to lateral malleolus with no surrounding erythema noted. Left foot: dry gangrene noted to digits 2, 3, 4 and 5, extending from tip to the MTPJs of each digit. Borders well demarcated. + erythema in the midfoot area. No drainage noted, however maggot was noted under patient's foot on exam. no odor noted. No maceration noted on foot. Neurologic: lethargic but able to answer some questions no focal deficits noted. Results & Data Vital Signs (Past 12 Hours) Vital Signs Temp Pulse Resp BP Pulse Ox O2 Del Method 10/31/24 09:20 Room Air 10/31/24 07:45 36.7 C 78 20 150/92 H 96 Room Air Laboratory Results 10/30/24 12:00 Aerobic Blood Culture - Preliminary Blood No growth in Aerobic bottle after 24 hours. Anaerobic Blood Culture - Preliminary No growth in Anaerobic bottle after 24 hours. 10/30/24 11:15 Aerobic Blood Culture - Preliminary Blood No growth in Aerobic bottle after 24 hours. Anaerobic Blood Culture - Preliminary No growth in Anaerobic bottle after 24 hours. 10/31/24 10/31/24 10/31/24 11:53 11:45 06:03 WBC RBC Hgb Hct MCV MCH MCHC RDW Std Deviation RDW Coeff of Cici Plt Count MPV Sodium Potassium Chloride Carbon Dioxide Anion Gap BUN Creatinine Est Cr Clr Drug Dosing eGFR BUN/Creatinine Ratio Glucose POC Glucose 116 H 112 H Estimat Average Glucose Hemoglobin A1c Calcium Nasal Screen MRSA (PCR) Random Vancomycin 12.0 10/31/24 10/30/24 10/30/24 05:58 Unknown 22:47 WBC 11.21 H RBC 4.09 L Hgb 13.1 L Hct 39.7 L MCV 97.1 MCH 32.0 MCHC 33.0 RDW Std Deviation 48.8 H RDW Coeff of Cici 13.7 Plt Count 268 MPV 9.8 Sodium 131 L Potassium 4.2 Chloride 98 Carbon Dioxide 27 Anion Gap 6 BUN 17 Creatinine 0.73 Est Cr Clr Drug Dosing 92.0 eGFR 90.84 BUN/Creatinine Ratio 23.3 H Glucose 119 H POC Glucose 130 H Estimat Average Glucose 120 Hemoglobin A1c 5.8 H Calcium 9.2 Nasal Screen MRSA (PCR) Positive A Random Vancomycin 10/30/24 10/30/24 20:11 18:11 WBC RBC Hgb Hct MCV MCH MCHC RDW Std Deviation RDW Coeff of Cici Plt Count MPV Sodium Potassium Chloride Carbon Dioxide Anion Gap BUN Creatinine Est Cr Clr Drug Dosing eGFR BUN/Creatinine Ratio Glucose POC Glucose 176 H 170 H Estimat Average Glucose Hemoglobin A1c Calcium Nasal Screen MRSA (PCR) Random Vancomycin Diagnostic Findings Duplex Scan Lower Extremity Artery 10/31/24 09:12 US arterial duplex LE LT CLINICAL HISTORY: necrotic foot COMPARISON STUDY: No previous studies for comparison. FINDINGS: There was triphasic flow within the left common femoral artery. Peak velocities measured 87 cm/s. There was triphasic flow within the left profunda artery. There is triphasic flow within the left superficial femoral artery. Peak systolic velocities measured 78 cm/s. There was biphasic flow within the left popliteal artery. The peak systolic velocities measured 57 cm/s. There is mixed monophasic and biphasic flow within the posterior tibial with a peak systolic velocity of 79 cm/s. There was monophasic flow within the left anterior tibial, with a peak systolic velocity of 67 cm/s. There is monophasic flow within the left peroneal artery which was poorly visualized. There are areas of possible peroneal artery occlusion. The systolic velocity was 42 cm/s. There is monophasic dorsalis pedis systolic velocity 40 cm/s. IMPRESSION: 1. No evidence of stenosis within the common femoral superficial femoral or popliteal arteries 2. Poor visualization of the calf vessels. Segmental occlusions of the peroneal artery cannot be excluded. ACT 112: Negative or not required by law. Electronically signed by: Sumeet Stevens M.D. 10/31/2024 12:12 PM Medications Administered Home Medications Medication Instructions Recorded Confirmed Last Taken apixaban 5 mg tablet (Eliquis) 5 mg PO BID 10/30/24 10/31/24 Unknown furosemide 20 mg tablet 20 mg PO DAILY 10/30/24 10/31/24 Unknown insulin glargine 100 unit/mL (3 18 unit subcut HS 10/30/24 10/31/24 Unknown mL) subcutaneous pen (Lantus Solostar U-100 Insulin) lactulose 10 gram/15 mL oral 15 ml PO BID 10/30/24 10/31/24 Unknown solution metoprolol succinate 100 mg 100 mg PO DAILY 10/30/24 10/31/24 Unknown tablet,extended release 24 hr spironolactone 25 mg tablet 12.5 mg PO DAILY 10/30/24 10/31/24 Unknown trazodone 50 mg tablet 50 mg PO DAILY 10/30/24 10/31/24 Unknown acetaminophen 500 mg tablet 1,000 mg PO TID 10/31/24 10/31/24 Unknown (Tylenol Extra Strength) aspirin 81 mg tablet 81 mg PO DAILY 10/31/24 10/31/24 Unknown sennosides 8.6 mg-docusate sodium 2 tab-cap PO HS 10/31/24 10/31/24 Unknown 50 mg tablet (Senna-S) tramadol 50 mg tablet 50 mg PO Q6H PRN Pain 10/31/24 10/31/24 Unknown Active Medications Generic Name Dose Route Start Last Admin Trade Name Freq PRN Reason Stop Dose Admin Enoxaparin Sodium 100 mg 10/30/24 21:00 10/31/24 07:37 Enoxaparin 100 Mg/1ml Syr SQ 11/29/24 20:59 100 mg Q12H DARREN Administration Furosemide 20 mg 10/31/24 09:00 10/31/24 08:15 Furosemide 20 Mg Tab PO 11/30/24 08:59 20 mg DAILY DARREN Administration Piperacillin Sod/Tazobactam Sod 4.5 gm in 100 mls @ 25 mls/hr 10/30/24 20:00 10/31/24 12:26 Zosyn IV 11/06/24 19:59 25 mls/hr Q8H DARREN Administration Protocol Vancomycin HCl 1,000 mg in 270 mls @ 200 mls/hr 10/30/24 23:30 10/31/24 13:57 Vancomycin Hcl IV 11/01/24 23:29 Infused Q12H DARREN Infusion Insulin Aspart 0 units 10/31/24 00:00 10/31/24 12:18 Insulin Aspart Per Unit Charge SC 11/30/24 00:00 Not Given Q6 DARREN Lactulose 10 gm 10/30/24 21:00 10/31/24 07:36 Lactulose Syrup 20 Gm/30 Ml Udc PO 11/29/24 20:59 10 gm BID DARREN Administration Levalbuterol HCl 1.25 mg 10/30/24 22:57 10/31/24 00:27 Levalbuterol 1.25 Mg/3 Ml Neb NEB 11/29/24 22:56 1.25 mg Q4H PRN Administration Shortness Of Breath Or Wheezing Melatonin 3 mg 10/30/24 18:30 10/30/24 20:18 Melatonin 3 Mg Tab PO 11/29/24 18:29 3 mg HS PRN Administration Insomnia Metoprolol Succinate 100 mg 10/31/24 09:00 10/31/24 08:15 Metoprolol Succ 50mg Ext Rel Tab PO 11/30/24 08:59 100 mg DAILY DARREN Administration Nystatin 1 appln 10/30/24 23:05 10/31/24 04:01 Nystatin Powder 15gm Btl EXT 11/29/24 23:04 1 appln PRN PRN Administration Affected Skin Folds Trazodone HCl 50 mg 10/31/24 09:00 10/31/24 08:16 Trazodone Hcl 50 Mg Tab PO 11/30/24 08:59 50 mg DAILY DARREN Administration PG Care Time/CCT Total # of Minutes Spent Total Time Spent with Patient: Total time spent is greater than 50% in coordination of care (as documented) at patient's floor/unit and/or counseling patient: [place] [address] INT INP/OBS CARE 2/55MIN Patient Type New Medical Decision Making Moderate Complexity Diagnoses 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
[2024-10-31] MEDS: LANTUS PER UNIT CHARGE SC SCH (21:56)
[2024-10-31] MEDS: DOCUSATE SODIUM/SENNA 50/8.6MG TAB PO SCH (21:59)
[2024-10-31] MEDS: ACETAMINOPHEN 500 MG TAB PO SCH (21:59)
[2024-11-01 06:42] LABS: Hematocrit (blood only) 37.9 % (42.0-52.0); Hemoglobin 12.8 g/dl (14.0-18.0); Mean Corpuscular Hemoglobin 31.7 pg (25.0-34.0); Mean Corpuscular Volume 93.8 fL (80.0-100.0); Platelet Count 257 K/uL (130-400); RDW Standard Deviation 46.5 fL (36.4-46.3); Red Blood Count 4.04 M/uL (4.70-6.10); White Blood Count 8.58 K/ul (4.8-10.8)
[2024-11-01 06:57] LABS: Anion Gap 7.0 (3-11); Blood Urea Nitrogen 17.0 mg/dl (6-23); Calcium 9.0 mg/dl (8.6-10.3); Carbon Dioxide 26.0 mmol/L (21-32); Chloride 97.0 mmol/L (98-107); Creatinine Clr Calc Pharmacy 80.9 ml/min; Glucose 96.0 mg/dl (70-99(Fasting)); Potassium 3.8 mmol/L (3.5-5.1); Sodium 130.0 mmol/L (136-145)
[2024-11-01] MEDS: SPIRONOLACTONE 12.5 MG TAB PO SCH (10:10)
[2024-11-01] MEDS: ASPIRIN 81 MG ECTAB PO SCH (10:11)
--- NOTE | 2024-11-01 13:27 | Vascular Surgery Progress Note ---
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 Calf vessels poorly visualized on the left, however do have monophasic flow, with NOA of 0.95 and decent waveform at the ankle. -he likely will heal a TMA, however would proceed with CTA with runoff first before ultimately deciding he would not need any revascularization. Overall goal will be to salvage foot if possible, as he does use sometimes for transfers. Cr is 0.83, with CrCl 80. Discussed with primary- ok to proceed with CTA in relation to CKD. -continue local wound care per podiatry (2) Atrial fibrillation: Plan: -on Eliquis at home -currently on Lovenox while inpatient in anticipation of procedures- appreciate switch while inpatient (3) Insulin-requiring or dependent type II diabetes mellitus: Plan: -continue blood glucose control Admission and Anticipated Discharge Date Admission Date: October 30, 2024 Subjective More awake today. Minimal pain in left foot currently. Discussed his use of his legs/feet at [facility]- mostly in wheel chair or bed. Does use his feet to help with scooting to chair. No fevers or chills. Leukocytosis resolved and continues on IV antibiotics. Did well overnight. Continues on Lovenox in anticipation of potential intervention/surgery. Review of Systems Review of Systems: see HPI. Physical Exam Constitutional: WDWN, sitting up in bed, in no distress Musculoskeletal: Right foot: able to move digits 1, 2 and 3. 4th and 5th ray amputation present. Left foot: 1st digit only able to move. able to move foot at ankle. Skin: Left foot: dry gangrene noted to digits 2, 3, 4 and 5, extending from tip to the MTPJs of each digit, and extends laterally to side of 5th digit. Borders well demarcated. + erythema to the midfoot area. No drainage noted, No maceration noted on foot. Results & Data Vital Signs (Past 12 Hours) Vital Signs Temp Pulse Resp BP Pulse Ox O2 Del Method 11/01/24 12:43 Room Air 11/01/24 07:45 36.2 C L 87 18 117/79 98 Room Air Laboratory Results 10/30/24 12:00 Aerobic Blood Culture - Preliminary Blood No growth in Aerobic bottle after 48 hours. Anaerobic Blood Culture - Preliminary No growth in Anaerobic bottle after 48 hours. 10/30/24 11:15 Aerobic Blood Culture - Preliminary Blood No growth in Aerobic bottle after 48 hours. Anaerobic Blood Culture - Preliminary No growth in Anaerobic bottle after 48 hours. 11/01/24 11/01/24 11/01/24 11:20 05:55 05:42 WBC 8.58 RBC 4.04 L Hgb 12.8 L Hct 37.9 L MCV 93.8 MCH 31.7 MCHC 33.8 RDW Std Deviation 46.5 H RDW Coeff of Cici 13.5 Plt Count 257 MPV 9.7 Sodium 130 L Potassium 3.8 Chloride 97 L Carbon Dioxide 26 Anion Gap 7 BUN 17 Creatinine 0.83 Est Cr Clr Drug Dosing 80.9 eGFR 87.38 BUN/Creatinine Ratio 20.5 H Glucose 96 POC Glucose 104 H 90 Calcium 9.0 11/01/24 10/31/24 10/31/24 00:27 20:26 16:56 WBC RBC Hgb Hct MCV MCH MCHC RDW Std Deviation RDW Coeff of Cici Plt Count MPV Sodium Potassium Chloride Carbon Dioxide Anion Gap BUN Creatinine Est Cr Clr Drug Dosing eGFR BUN/Creatinine Ratio Glucose POC Glucose 120 H 134 H 98 Calcium Diagnostic Findings No new diagnostic imaging, previous arterial duplex reviewed. Medications Administered Home Medications Medication Instructions Recorded Confirmed Last Taken apixaban 5 mg tablet (Eliquis) 5 mg PO BID 10/30/24 10/31/24 Unknown furosemide 20 mg tablet 20 mg PO DAILY 10/30/24 10/31/24 Unknown insulin glargine 100 unit/mL (3 18 unit subcut HS 10/30/24 10/31/24 Unknown mL) subcutaneous pen (Lantus Solostar U-100 Insulin) lactulose 10 gram/15 mL oral 15 ml PO BID 10/30/24 10/31/24 Unknown solution metoprolol succinate 100 mg 100 mg PO DAILY 10/30/24 10/31/24 Unknown tablet,extended release 24 hr spironolactone 25 mg tablet 12.5 mg PO DAILY 10/30/24 10/31/24 Unknown trazodone 50 mg tablet 50 mg PO DAILY 10/30/24 10/31/24 Unknown acetaminophen 500 mg tablet 1,000 mg PO TID 10/31/24 10/31/24 Unknown (Tylenol Extra Strength) aspirin 81 mg tablet 81 mg PO DAILY 10/31/24 10/31/24 Unknown sennosides 8.6 mg-docusate sodium 2 tab-cap PO HS 10/31/24 10/31/24 Unknown 50 mg tablet (Senna-S) tramadol 50 mg tablet 50 mg PO Q6H PRN Pain 10/31/24 10/31/24 Unknown Active Medications Generic Name Dose Route Start Last Admin Trade Name Caio PRN Reason Stop Dose Admin Acetaminophen 1,000 mg 10/31/24 21:00 11/01/24 10:09 Acetaminophen 500 Mg Tab PO 11/30/24 20:59 1,000 mg TID DARREN Administration Aspirin 81 mg 11/01/24 09:00 11/01/24 10:11 Aspirin 81 Mg Ectab PO 12/01/24 08:59 81 mg DAILY DARREN Administration Enoxaparin Sodium 100 mg 10/30/24 21:00 11/01/24 10:16 Enoxaparin 100 Mg/1ml Syr SQ 11/29/24 20:59 100 mg Q12H DARERN Administration Furosemide 20 mg 10/31/24 09:00 11/01/24 10:12 Furosemide 20 Mg Tab PO 11/30/24 08:59 20 mg DAILY DARREN Administration Piperacillin Sod/Tazobactam Sod 4.5 gm in 100 mls @ 25 mls/hr 10/30/24 20:00 11/01/24 12:46 Zosyn IV 11/06/24 19:59 25 mls/hr Q8H DARREN Administration Protocol Vancomycin HCl 1,000 mg in 270 mls @ 200 mls/hr 10/30/24 23:30 11/01/24 12:46 Vancomycin Hcl IV 11/06/24 23:29 200 mls/hr Q12H DARREN Administration Insulin Aspart 0 units 10/31/24 00:00 11/01/24 12:47 Insulin Aspart Per Unit Charge SC 11/30/24 00:00 Not Given Q6 DARREN Insulin Glargine 0 units 10/31/24 21:00 10/31/24 21:56 Lantus Per Unit Charge SC 11/30/24 20:59 Not Given HS [facility] Protocol Lactulose 10 gm 10/30/24 21:00 11/01/24 10:19 Lactulose Syrup 20 Gm/30 Ml Udc PO 11/29/24 20:59 10 gm BID DARREN Administration Levalbuterol HCl 1.25 mg 10/30/24 22:57 10/31/24 20:58 Levalbuterol 1.25 Mg/3 Ml Neb NEB 11/29/24 22:56 1.25 mg Q4H PRN Administration Shortness Of Breath Or Wheezing Melatonin 3 mg 10/30/24 18:30 10/31/24 21:59 Melatonin 3 Mg Tab PO 11/29/24 18:29 3 mg HS PRN Administration Insomnia Metoprolol Succinate 100 mg 10/31/24 09:00 11/01/24 10:12 Metoprolol Succ 50mg Ext Rel Tab PO 11/30/24 08:59 100 mg DAILY DARREN Administration Nystatin 1 appln 10/30/24 23:05 10/31/24 04:01 Nystatin Powder 15gm Btl EXT 11/29/24 23:04 1 appln PRN PRN Administration Affected Skin Folds Senna/Docusate Sodium 2 tab 10/31/24 21:00 10/31/24 21:59 Docusate Sodium/Senna 50/8.6mg Tab PO 11/30/24 20:59 2 tab HS DARREN Administration Spironolactone 12.5 mg 11/01/24 09:00 11/01/24 10:10 Spironolactone 12.5 Mg Tab PO 12/01/24 08:59 12.5 mg DAILY DARREN Administration Trazodone HCl 50 mg 10/31/24 09:00 11/01/24 10:13 Trazodone Hcl 50 Mg Tab PO 11/30/24 08:59 50 mg DAILY DARREN Administration PG Care Time/CCT Total # of Minutes Spent Total Time Spent with Patient: Total time spent is greater than 50% in coordination of care (as documented) at patient's floor/unit and/or counseling patient:
--- NOTE | 2024-11-01 13:46 | Hospitalist Progress Note ---
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 Has been at [facility] since 08/25/24 after an admission to [facility] for right knee septic arthritis. Cultures grew group B strep and patient completed Ceftriaxone on 09/13/24. Patient also with history of PVD - [facility]P R ADRIAN & Peroneal angioplasties and right 5th toe amp on 04/09/[address] Mina for severe PAD & gangrene right 5th toe. S/P R Peroneal angioplasty, right 5th MTH amputation, right 4th toe proximal metatarsal amputation on 07/05/[address] Mina for PAD, OM of 5th metatarsal and necrosis of 4th right toe. Podiatry and vascular consults Continue empiric IV Zosyn and IV Vanco Blood cultures NGTD, Nasal MRSA +, No open areas or drainage to culture Does not appear septic Vascular planning for CTA today to evaluate need for angiogram. Podiatry updated - may be able to add on to OR tomorrow if cleared from vascular. (2) (HFpEF) heart failure with preserved ejection fraction: Plan: Sounds wet on exam today CXR on admission suggestive of congestive changes with bilateral pleural effusions Repeat CXR shows Cardiomegaly with interstitial pulmonary edema. Unchanged right greater than left layering pleural effusions with bibasilar opacities. Lasix 40mg IV x 1 Echo 07/2024: EF 65%, no significant valvular disease Monitor I/O, daily weights (3) Pulmonary lesion, right: Plan: CXR shows 3.9 cm right hilar nodular focus is likely secondary to summation density associated with pulmonary vasculature. CT chest ordered for follow up (4) Insulin-requiring or dependent type II diabetes mellitus: Plan: Hgb A1c 5.8 Lantus/Novolog while hospitalized (5) PAF (paroxysmal atrial fibrillation): Plan: Rate controlled on metoprolol Anticoagulated with Eliquis - currently on Lovenox bridge in the event of procedure (6) Chronic hyponatremia: Plan: Due to underlying liver cirrhosis Na+ 131 -> 130 Start 1500 FR Continue to monitor (7) History of pulmonary embolism: Plan: Lovenox bridge as above (8) Buttock wound: Plan: Left buttock wound DTI Right buttock stage II Does not appear infected, wound photos reviewed Wound care nurse following (9) Alcoholic cirrhosis: Plan: Appears compensated Continue Lasix/Spironolactone, lactulose DVT PROPHYLAXIS Therapeutic dose Lovenox as above Dispo: Anticipate d/c back to [facility] once medically stable, likely to undergo left TMA this hospitalization, vascular work up pending I spent a total of 35 minutes coordinating, documenting, and providing care for this patient excluding time spent in the performance of separately billed services. This included personally reviewing all current laboratories and imaging studies, medication reconciliation, outpatient chart review, and discussion with specialists. Admission and Anticipated Discharge Date Admission Date: October 30, 2024 Subjective Follow up for gangrene of left foot. Patient seen and examined. More alert compared to yesterday however only oriented to self. Reports left foot pain with minimal movement. Physical Exam Constitutional: no acute distress Respiratory: normal respiratory effort; no respiratory distress Auscultation: + diminished lung sounds and + rhonchi (scattered BL ) Cardiovascular: Rate/Rhythm: regular rate and regular rhythm Extremities: + edema (+1 edema BLE) Skin: Left 2-5 toes necrotic/mummified extending past the MPJs with mild surrounding erythema, no drainage Neurologic: no focal motor deficits Psychiatric: Orientation: alert, oriented to person and cooperative; + not oriented to place and + not oriented to time Results & Data Results & Data Vital Signs (Past 12 Hours) Vital Signs Temp Pulse Resp BP Pulse Ox O2 Del Method 11/01/24 12:43 Room Air 11/01/24 07:45 36.2 C L 87 18 117/79 98 Room Air Laboratory Results Short CBC 11/01/24 Range/Units 05:55 WBC 8.58 (4.8-10.8) K/ul Hgb 12.8 L (14.0-18.0) g/dl Hct 37.9 L (42.0-52.0) % Plt Count 257 (130-400) K/uL BMP 11/01/24 05:55 Sodium 130 L Potassium 3.8 Chloride 97 L Carbon Dioxide 26 BUN 17 Creatinine 0.83 Glucose 96 Calcium 9.0
[2024-11-01] MEDS: OPTIRAY 320 125ml IV ONE (15:31)
--- NOTE | 2024-11-01 15:38 | XRay Report ---
XR chest 1V portable HISTORY: 84 years-old Male CHF acute shortness of breath COMPARISON: 10/31/2024 TECHNIQUE: AP view the chest FINDINGS: Cardiac silhouette is enlarged. Pulmonary vascular congestion with interstitial coarsening. Unchanged layering pleural effusions, right greater than left with bibasilar opacities. Right hilar 3.9 cm nod ular focus is again seen. 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 Cardiomegaly with interstitial pulmonary edema. 2. Unchanged right greater than left layering pleural effusions with bibasilar opacities. 3. 3.9 cm right hilar nodular focus is likely secondary to summation density associated with pulmonar y vasculature. A precautionary nonemergent follow-up chest CT may be considered in order to exclude a denopathy versus pulmonary lesion. ACT 112: Negative or not required by law. The above report was generated using voice recognition software. It may contain grammatical, syntax o r spelling errors. Electronically signed by: Joss Juarez M.D. 11/01/2024 3:36 PM
--- NOTE | 2024-11-01 16:42 | CT Scan Report ---
CT ang AA christa alvares tricia CLINICAL HISTORY: left foot gangrene, assess arterial disease burden COMPARISON STUDY: Arterial duplex study dated 10/31/2024 FINDINGS: Patient was scanned in a dynamic helical fashion during intravenous administration of 120 cc of Optir ay 320. Visualized portions the lung bases reveal bilateral pleural effusions with presumed bibasilar atelect atic change. The liver has a cirrhotic morphology. There are innumerable hypervascular hepatic nodules. There is milk of calcium within the gallbladder. There is no evidence of abdominal aortic aneurysm. There is no evidence of hemodynamically significant celiac or superior mesenteric artery proximal amadeo nosis There is a 50% diameter stenosis involving the inferior mesenteric artery origin. Atheromatous plaque is visualized at the origin of the renal arteries but a hemodynamic significant s tenosis is not felt to be present. There is no evidence of common iliac artery stenosis. There is no evidence of external iliac artery stenosis. There is no evidence of hemodynamically significant common femoral artery stenosis. On the right, there are mild to moderate atheromatous changes within the right superficial femoral ar alvin. There is no evidence of hemodynamic significant stenosis. Moderate atheromatous changes are present within the right popliteal artery without evidence of a hem odynamically significant stenosis. There are multifocal right peroneal artery occlusions. There are multifocal right anterior tibial and posterior tibial artery occlusions. On the left there are mild to moderate atheromatous changes within the superficial femoral artery wit hout evidence of a hemodynamically significant stenosis. There is mild to moderate atheromatous eubanks e within the left popliteal without evidence of hemodynamic significant stenosis. There are multifoca l occlusions involving the left anterior tibial and posterior tibial artery. The peroneal artery demo nstrates multifocal stenoses but appears to be patent to the ankle. IMPRESSION: 1. No evidence of hemodynamically significant aortic, celiac, superior mesenteric, or renal artery st enosis 2. 50% stenosis of the inferior mesenteric artery origin 3. No evidence of hemodynamically significant common iliac, external iliac, common femoral, superfici al femoral, or popliteal arteries. 4. Severe bilateral trifurcation lower extremity arterial disease with multifocal right anterior tibi al, posterior tibial, and peroneal artery occlusions. On the left there are multifocal anterior tibia l and posterior artery occlusions. The left peroneal artery contains multiple sclerotic lesions but a ppears patent to the ankle 5. Bilateral pleural effusions 6. Cirrhotic morphology of the liver with innumerable hypervascular hepatic nodules. Clinical correla tion and possible MRI follow-up is recommended. ACT 112: Negative or not required by law. Electronically signed by: Sumeet Stevens M.D. 11/01/2024 4:40 PM
[2024-11-01] MEDS: INSULIN ASPART PER UNIT CHARGE SC SCH (18:23)
[2024-11-01] MEDS: FUROSEMIDE 40 MG/4 ML VIAL IV ONE (18:24)
[2024-11-02] MEDS ORDERED: Nursing to Pharmacy Communication SCH ×2 (01:30→11:15)
[2024-11-02] MEDS: INSULIN ASPART PER UNIT CHARGE SC SCH ×2 (05:51→13:32)
[2024-11-02 07:04] LABS: Hematocrit (blood only) 40.0 % (42.0-52.0); Hemoglobin 13.6 g/dl (14.0-18.0); Mean Corpuscular Hemoglobin 32.0 pg (25.0-34.0); Mean Corpuscular Volume 94.1 fL (80.0-100.0); Platelet Count 286 K/uL (130-400); RDW Standard Deviation 46.9 fL (36.4-46.3); Red Blood Count 4.25 M/uL (4.70-6.10); White Blood Count 9.57 K/ul (4.8-10.8)
[2024-11-02 07:24] LABS: Anion Gap 8.0 (3-11); Blood Urea Nitrogen 17.0 mg/dl (6-23); Calcium 9.2 mg/dl (8.6-10.3); Carbon Dioxide 28.0 mmol/L (21-32); Chloride 96.0 mmol/L (98-107); Creatinine Clr Calc Pharmacy 70.7 ml/min; Glucose 108.0 mg/dl (70-99(Fasting)); Potassium 3.6 mmol/L (3.5-5.1); Sodium 132.0 mmol/L (136-145)
--- NOTE | 2024-11-02 08:59 | Podiatry Progress Note ---
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 Overall it appears that patient has perfusion to the foot to assume reasonable odds of healing a transmetatarsal amputation. Plan to move forward with left foot transmetatarsal amputation with tendo Achilles lengthening later today. Will monitor patient's progress closely and reconsult vascular if needed with any signs of failure of the transmetatarsal amputation site. Procedure discussed with patient at length. Written informed consent reviewed with patient signed and witnessed. Patient has been n.p.o. since midnight. Continue n.p.o. until postoperative. Admission and Anticipated Discharge Date Admission Date: October 30, 2024 Subjective Seen resting comfortably in hospital bed. He does report discomfort to the left foot today. Denies nausea vomiting fever chills. We reviewed treatment options regarding gangrene of the left foot. Specifically discussed transmetatarsal amputation at the proximal extent of the metatarsals with tendo Achilles lengthening to maintain left foot from a functional standpoint for short distance and transfer. Patient has been through multiple surgeries on the right foot for management of gangrene with partial 4th and 5th ray amputations and voices understanding of the recommendation. Written informed consent reviewed with patient reviewing benefits, risks, alternatives and risks to the alternatives of the suggested procedure. All questions were answered. Consent signed and witnessed. Review of Systems Review of Systems: Patient denies nausea, vomiting, fever, shortness of breath, chest pain. Reports pain in the left foot today. All other systems reviewed and negative unless detailed in HPI. Physical Exam Physical Exam: Focused lower extremity exam: Thin atrophic skin with loss of hair growth bilateral lower extremity below the knee. 3 out of 5 muscle strength at the level of the ankle to all muscle groups bilateral. Left foot: Nonpalpable pedal pulses. -Dry gangrene of the 2nd through 5th toe s of the left foot. Gangrene extends into the forefoot laterally surrounding the head of the fifth metatarsal. Well- demarcated borders. No active drainage. No malodor. Erythema to the left foot extends to the anterior ankle. -Stage IV pressure injury overlying the lateral malleolus with mild maceration of surrounding epithelial tissue. No periwound signs of local soft tissue infection. No active drainage or malodor. -Stage II pressure injury to the posteri or lateral left leg with mixed fibrotic slough and eschar tissue to the wound bed. No active drainage. No signs of local soft tissue infection. Scant serous drainage to dressing. Right foot: Nonpalpable pedal pulses. -Stable eschar overlying incision from p revious partial 4th and 5th ray amputation. Surrounding soft tissue stained with Betadine. No active drainage or signs of local soft tissue infection. -There is an unstageable pressure injury overlying the lateral malleolus with mild maceration of periwound epithelial tissue. No active drainage. No signs of local soft tissue infection. 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
--- NOTE | 2024-11-02 09:57 | Vascular Surgery Progress Note ---
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 OK to attempt TMA to be able to give patient enough of a functional foot to assist with transfers and help with stability, however site will need close follow up and vascular surgery should be reconsulted if there is any difficulties with healing at the TMA site, or any duskiness that is worrisome for poor perfusion. -Discussed results of CTA with patient as well and he is in agreement with attempting TMA, but does understand he may need further vascular work done, should the site be unable to heal. -continue antibiotics per primary team -please call at any time with questions (2) Atrial fibrillation: Plan: -on Eliquis at home -currently on Lovenox while inpatient in anticipation of procedures- appreciate switch while inpatient (3) Insulin-requiring or dependent type II diabetes mellitus: Plan: -continue blood glucose control Admission and Anticipated Discharge Date Admission Date: October 30, 2024 Subjective Underwent CTA with runoff yesterday to assess vascular status. Denies any pain in his feet currently. Also denies any drainage from toes, fevers, or chills. Disucssed his CTA results with podiatry, and suspect he will heal TMA. Vitals stable overnight. Continues on IV antibiotics Review of Systems Review of Systems: see HPI Physical Exam Constitutional: Pleasant and talkative, sitting up in bed, in no distress Musculoskeletal: Right foot: able to move digits 1, 2 and 3. 4th and 5th ray amputation present. Left foot: 1st digit only able to move. able to move foot at ankle. Skin: Left foot: dry gangrene noted to digits 2, 3, 4 and 5, extending from tip to the MTPJs of each digit, and extends laterally to side of 5th digit. Borders well demarcated. + erythema to the midfoot area. No drainage noted, No maceration noted on foot. Results & Data Vital Signs (Past 12 Hours) Vital Signs Temp Pulse Resp BP Pulse Ox O2 Del Method 11/02/24 08:01 36.4 C L 87 18 129/80 97 Room Air 11/01/24 23:33 Room Air 11/01/24 22:53 36.2 C L 82 18 114/76 98 Room Air Laboratory Results 10/30/24 12:00 Aerobic Blood Culture - Preliminary Blood No growth in Aerobic bottle after 48 hours. Anaerobic Blood Culture - Preliminary No growth in Anaerobic bottle after 48 hours. 10/30/24 11:15 Aerobic Blood Culture - Preliminary Blood No growth in Aerobic bottle after 48 hours. Anaerobic Blood Culture - Preliminary No growth in Anaerobic bottle after 48 hours. 11/02/24 11/02/24 11/01/24 06:11 05:46 20:07 WBC 9.57 RBC 4.25 L Hgb 13.6 L Hct 40.0 L MCV 94.1 MCH 32.0 MCHC 34.0 RDW Std Deviation 46.9 H RDW Coeff of Cici 13.6 Plt Count 286 MPV 9.7 Sodium 132 L Potassium 3.6 Chloride 96 L Carbon Dioxide 28 Anion Gap 8 BUN 17 Creatinine 0.95 Est Cr Clr Drug Dosing 70.7 eGFR 79.92 BUN/Creatinine Ratio 17.9 Glucose 108 H POC Glucose 104 H 125 H Calcium 9.2 11/01/24 11/01/24 16:28 11:20 WBC RBC Hgb Hct MCV MCH MCHC RDW Std Deviation RDW Coeff of Cici Plt Count MPV Sodium Potassium Chloride Carbon Dioxide Anion Gap BUN Creatinine Est Cr Clr Drug Dosing eGFR BUN/Creatinine Ratio Glucose POC Glucose 142 H 104 H Calcium Diagnostic Findings Aorta w/Runoff CTA 11/01/24 13:12 CT ang AA runof w inc giorgio kadenkaron CLINICAL HISTORY: left foot gangrene, assess arterial disease burden COMPARISON STUDY: Arterial duplex study dated 10/31/2024 FINDINGS: Patient was scanned in a dynamic helical fashion during intravenous administration of 120 cc of Optiray 320. Visualized portions the lung bases reveal bilateral pleural effusions with presumed bibasilar atelectatic change. The liver has a cirrhotic morphology. There are innumerable hypervascular hepatic nodules. There is milk of calcium within the gallbladder. There is no evidence of abdominal aortic aneurysm. There is no evidence of hemodynamically significant celiac or superior mesenteric artery proximal stenosis There is a 50% diameter stenosis involving the inferior mesenteric artery origin. Atheromatous plaque is visualized at the origin of the renal arteries but a hemodynamic significant stenosis is not felt to be present. There is no evidence of common iliac artery stenosis. There is no evidence of external iliac artery stenosis. There is no evidence of hemodynamically significant common femoral artery stenosis. On the right, there are mild to moderate atheromatous changes within the right superficial femoral artery. There is no evidence of hemodynamic significant stenosis. Moderate atheromatous changes are present within the right popliteal artery without evidence of a hemodynamically significant stenosis. There are multifocal right peroneal artery occlusions. There are multifocal right anterior tibial and posterior tibial artery occlusions. On the left there are mild to moderate atheromatous changes within the superficial femoral artery without evidence of a hemodynamically significant stenosis. There is mild to moderate atheromatous change within the left popliteal without evidence of hemodynamic significant stenosis. There are multifocal occlusions involving the left anterior tibial and posterior tibial artery. The peroneal artery demonstrates multifocal stenoses but appears to be patent to the ankle. IMPRESSION: 1. No evidence of hemodynamically significant aortic, celiac, superior mesenteric, or renal artery stenosis 2. 50% stenosis of the inferior mesenteric artery origin 3. No evidence of hemodynamically significant common iliac, external iliac, common femoral, superficial femoral, or popliteal arteries. 4. Severe bilateral trifurcation lower extremity arterial disease with multifocal right anterior tibial, posterior tibial, and peroneal artery occlusions. On the left there are multifocal anterior tibial and posterior artery occlusions. The left peroneal artery contains multiple sclerotic lesions but appears patent to the ankle 5. Bilateral pleural effusions 6. Cirrhotic morphology of the liver with innumerable hypervascular hepatic nodules. Clinical correlation and possible MRI follow-up is recommended. ACT 112: Negative or not required by law. Electronically signed by: Sumeet Stevens M.D. 11/01/2024 4:40 PM Chest X-Ray 11/01/24 13:40 XR chest 1V portable HISTORY: 84 years-old Male CHF acute shortness of breath COMPARISON: 10/31/2024 TECHNIQUE: AP view the chest FINDINGS: Cardiac silhouette is enlarged. Pulmonary vascular congestion with interstitial coarsening. Unchanged layering pleural effusions, right greater than left with bibasilar opacities. Right hilar 3.9 cm nodular focus is again seen. 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 Cardiomegaly with interstitial pulmonary edema. 2. Unchanged right greater than left layering pleural effusions with bibasilar opacities. 3. 3.9 cm right hilar nodular focus is likely secondary to summation density associated with pulmonary vasculature. A precautionary nonemergent follow-up chest CT may be considered in order to exclude adenopathy versus pulmonary lesion. ACT 112: Negative or not required by law. The above report was generated using voice recognition software. It may contain grammatical, syntax or spelling errors. Electronically signed by: Joss Juarez M.D. 11/01/2024 3:36 PM Medications Administered Home Medications Medication Instructions Recorded Confirmed Last Taken apixaban 5 mg tablet (Eliquis) 5 mg PO BID 10/30/24 10/31/24 Unknown furosemide 20 mg tablet 20 mg PO DAILY 10/30/24 10/31/24 Unknown insulin glargine 100 unit/mL (3 18 unit subcut HS 10/30/24 10/31/24 Unknown mL) subcutaneous pen (Lantus Solostar U-100 Insulin) lactulose 10 gram/15 mL oral 15 ml PO BID 10/30/24 10/31/24 Unknown solution metoprolol succinate 100 mg 100 mg PO DAILY 10/30/24 10/31/24 Unknown tablet,extended release 24 hr spironolactone 25 mg tablet 12.5 mg PO DAILY 10/30/24 10/31/24 Unknown trazodone 50 mg tablet 50 mg PO DAILY 10/30/24 10/31/24 Unknown acetaminophen 500 mg tablet 1,000 mg PO TID 10/31/24 10/31/24 Unknown (Tylenol Extra Strength) aspirin 81 mg tablet 81 mg PO DAILY 10/31/24 10/31/24 Unknown sennosides 8.6 mg-docusate sodium 2 tab-cap PO HS 10/31/24 10/31/24 Unknown 50 mg tablet (Senna-S) tramadol 50 mg tablet 50 mg PO Q6H PRN Pain 10/31/24 10/31/24 Unknown Active Medications Generic Name Dose Route Start Last Admin Trade Name Freq PRN Reason Stop Dose Admin Acetaminophen 1,000 mg 10/31/24 21:00 11/02/24 08:33 Acetaminophen 500 Mg Tab PO 11/30/24 20:59 1,000 mg TID DARREN Administration Aspirin 81 mg 11/01/24 09:00 11/02/24 08:34 Aspirin 81 Mg Ectab PO 12/01/24 08:59 81 mg DAILY DARREN Administration Enoxaparin Sodium 100 mg 10/30/24 21:00 11/01/24 21:10 Enoxaparin 100 Mg/1ml Syr SQ 11/29/24 20:59 100 mg Q12H DARREN Administration Piperacillin Sod/Tazobactam Sod 4.5 gm in 100 mls @ 25 mls/hr 10/30/24 20:00 11/02/24 07:46 Zosyn IV 11/06/24 19:59 Infused Q8H DARREN Infusion Protocol Vancomycin HCl 1,000 mg in 270 mls @ 200 mls/hr 10/30/24 23:30 11/02/24 02:35 Vancomycin Hcl IV 11/06/24 23:29 Infused Q12H DARREN Infusion Insulin Aspart 0 units 11/02/24 06:00 11/02/24 05:51 Insulin Aspart Per Unit Charge SC 12/02/24 05:59 Not Given Q6 DARREN Insulin Glargine 0 units 10/31/24 21:00 11/01/24 20:52 Lantus Per Unit Charge SC 11/30/24 20:59 Not Given HS DARREN Protocol Lactulose 10 gm 10/30/24 21:00 11/02/24 08:34 Lactulose Syrup 20 Gm/30 Ml Udc PO 11/29/24 20:59 10 gm BID DARREN Administration Levalbuterol HCl 1.25 mg 10/30/24 22:57 10/31/24 20:58 Levalbuterol 1.25 Mg/3 Ml Neb NEB 11/29/24 22:56 1.25 mg Q4H PRN Administration Shortness Of Breath Or Wheezing Melatonin 3 mg 10/30/24 18:30 11/02/24 01:08 Melatonin 3 Mg Tab PO 11/29/24 18:29 3 mg HS PRN Administration Insomnia Metoprolol Succinate 100 mg 10/31/24 09:00 11/02/24 08:34 Metoprolol Succ 50mg Ext Rel Tab PO 11/30/24 08:59 100 mg DAILY DARREN Administration Nystatin 1 appln 10/30/24 23:05 10/31/24 04:01 Nystatin Powder 15gm Btl EXT 11/29/24 23:04 1 appln PRN PRN Administration Affected Skin Folds Senna/Docusate Sodium 2 tab 10/31/24 21:00 11/01/24 21:07 Docusate Sodium/Senna 50/8.6mg Tab PO 11/30/24 20:59 2 tab HS DARREN Administration Spironolactone 12.5 mg 11/01/24 09:00 11/02/24 08:35 Spironolactone 12.5 Mg Tab PO 12/01/24 08:59 12.5 mg DAILY DARREN Administration Trazodone HCl 50 mg 10/31/24 09:00 11/02/24 09:30 Trazodone Hcl 50 Mg Tab PO 11/30/24 08:59 50 mg DAILY DARREN Administration PG Care Time/CCT Total # of Minutes Spent Total Time Spent with Patient: Total time spent is greater than 50% in coordination of care (as documented) at patient's floor/unit and/or counseling patient:
[2024-11-02] MEDS: FUROSEMIDE 40 MG/4 ML VIAL IV ONE (10:44)
[2024-11-02 10:56] LABS: Total Protein 6.4 gm/dl (6.0-8.3)
--- NOTE | 2024-11-02 11:20 | Pharmacy Report ---
Pharmacy PK ABX Note - Date of Service November 02, 2024 - Assessment and Plan Assessment 11/02 * Vancomycin level came back today at ~19 mcg/ml - dosing associated with therapeutic AUC/JAIDEN therefore will continue current regimen. Per notes, patient planning for transmetatarsal amputation 11/06 * 84 year old M receiving vancomycin/zosyn for diabetic foot infection. Patient with tissue necrosis/gangrene of left toes hx of PVD. Previous admission at OSH for R knee septic arthritis and completed course of ceftriaxone on 09/13/24. Podiatry and vascular consulted, patient NPO for possible intervention. Blood cultures pending. Plan Vancomycin * Continue vanco 1000 mg iv q 12 hours * Will repeat level in 3-4 days or sooner if renal function changes Pharmacy will continue to follow and will adjust dose/frequency as necessary. Thank you. Pharmacy has transitioned to AUC monitoring for vancomycin. AUC/JAIDEN is the preferred PK/PD target and is associated with decreased risk of nephrotoxicity compared to traditional trough targets.
[2024-11-02] MEDS: VANCOMYCIN LEVEL ONE (11:57)
--- NOTE | 2024-11-02 12:34 | Electrocardiogram Report ---
Test Reason : Blood Pressure : */* mmHG Vent. Rate : 82 BPM Atrial Rate : * BPM P-R Int : * ms QRS Dur : 106 ms QT Int : 390 ms P-R-T Axes : * 44 231 degrees QTcB Int : 455 ms Atrial fibrillation Abnormal ECG When compared with ECG of 30-Oct-2024 10:57, (unconfirmed) No significant change was found Confirmed by Shaggy Moscoso ([id number]) on 11/02/2024 12:33:46 PM Referred By: REFERRED SELF Confirmed By: Shaggy Moscoso
--- NOTE | 2024-11-02 13:03 | Ultrasound Report ---
LIMITED CHEST ULTRASOUND CLINICAL HISTORY: Thoracentesis requested COMPARISON STUDY: Chest CT dated 11/02/2024 FINDINGS: Ultrasound imaging of the right posterior thorax was performed. A small right pleural effus ion was identified, estimated at 500 mL. After discussion with patient, he declined the thoracentesis at this time. Referring provider will be notified. IMPRESSION: Small right pleural effusion as above. Patient declined thoracentesis at this time. Performed, dictated, and signed by Johnny Ferrell PA-C; to be co-signed by Dr. Juan J Main. Electronically signed by: Juan J Main M.D. 11/02/2024 2:05 PM
--- NOTE | 2024-11-02 13:07 | Hospitalist Progress Note ---
<Statement entered by Sammy Gore, DO - 11/02/24 15:53> I was available to MONIQUE Discussed plan with MONIQUE I spent a total of 20 minutes coordinating, documenting, and providing care for this patient excluding time spent in the performance of separately billed services. 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 Has been at [facility] since 08/25/24 after an admission to [facility] for right knee septic arthritis. Cultures grew group B strep and patient completed Ceftriaxone on 09/13/24. Patient also with history of PVD - follows with [facility] vascular - S/P R ADRIAN & Peroneal angioplasties and right 5th toe amp on 04/09/[address] Mina for severe PAD & gangrene right 5th toe. S/P R Peroneal angioplasty, right 5th MTH amputation, right 4th toe proximal metatarsal amputation on 07/05/[address] Mina for PAD, OM of 5th metatarsal and necrosis of 4th right toe. Podiatry and vascular consults Continue empiric IV Zosyn and IV Vanco Blood cultures NGTD, Nasal MRSA +, No open areas or drainage to culture Does not appear septic Needs Left TMA s/p CTA w/ runoff - no indication for intervention per vascular however low threshold to reconsult for concerns of healing or perfusion of TMA site Given BL pleural effusions, recommend holding on OR for today and continue diuresis and obtain pre op cardiac evaluation. Discussed with Dr. Oconnell who is tentatively planning for OR on Monday 11/06. Hold Lovenox after Sunday 11/05 PM dose. (2) Wound of left lower extremity: Plan: Wounds noted to left lateral ankle and left lateral/posterior calf Podiatry following w/ wound care recs - no concerns for soft tissue infection at this time however wound culture ordered today, continue empiric Vanco and Zosyn until operative cultures obtained on Wednesday (3) Bilateral pleural effusion: (4) Acute heart failure with preserved ejection fraction (HFpEF): Plan: CXR on admission suggestive of congestive changes with bilateral pleural effusions Repeat CXR on 11/01 shows Cardiomegaly with interstitial pulmonary edema. Unchanged right greater than left layering pleural effusions with bibasilar opacities. Started IV Lasix 40mg IV daily on 11/01 Currently on room air, denies shortness of breath. Attempted right sided thoracentesis mostly for diagnostic purposes given history of hepatocellular carcinoma and liver lesions noted on CTA however patient declined procedure. Note history of prior right pleural effusion s/p thoracentesis in 2019 with cytology being negative at that time. Underlying cirrhosis likely contributing as well Echo 07/2024 from [facility]: EF 65%, no significant valvular disease Weight on admission 98.9kg -> 94.2kg today Knott placed for I/Os, daily weights, low Na+ diet, 1500ml FR Cardio consult for pre op eval (5) Pulmonary lesion, right: Plan: CXR shows 3.9 cm right hilar nodular focus is likely secondary to summation density associated with pulmonary vasculature. CT chest results pending for follow up (6) Insulin-requiring or dependent type II diabetes mellitus: Plan: Hgb A1c 5.8 Lantus/Novolog while hospitalized (7) PAF (paroxysmal atrial fibrillation): Plan: Rate controlled on metoprolol Anticoagulated with Eliquis - currently on Lovenox bridge due to anticipated procedure (8) Chronic hyponatremia: Plan: Due to underlying liver cirrhosis Na+ 131 -> 130 -> 132 Started on 1500 FR on 11/01 (9) History of pulmonary embolism: Plan: Lovenox bridge as above (10) Buttock wound: Plan: Left buttock wound DTI Right buttock stage II Does not appear infected, wound photos reviewed Wound care nurse following (11) Hepatocellular carcinoma: Plan: Hx of HCC s/p tumor ablation in 2019, last chemo in 2022 - discontinued due to poor tolerance, patient was previously on hospice for about 3 months however stabilized CTA showed multiple liver lesions, last liver MRI in [address] Cordell Guzman Discussed with , recommend outpatient follow up with Dr. Guzman for further discussion regarding additional imaging (12) Alcoholic cirrhosis: Plan: BL pleural effusions as above, does not appear encephalopathic Continue Lasix/Spironolactone, lactulose DVT PROPHYLAXIS Therapeutic dose Lovenox as above Dispo: Anticipate d/c back to [facility] once medically stable, tentative plans for left TMA on Monday 11/06 I spent a total of 60 minutes coordinating, documenting, and providing care for this patient excluding time spent in the performance of separately billed services. This included personally reviewing all current laboratories and imaging studies, medication reconciliation, outpatient chart review, and discussion with specialists. Admission and Anticipated Discharge Date Admission Date: October 30, 2024 Subjective Follow up for gangrene of left foot. Patient seen and examined. Sitting up in bed, alert however only oriented to self currently. Moist cough noted, patient denies chest pain and shortness of breath. Reports pain in left foot with movement. Physical Exam 2 Physical Exam: Constitutional: WD/WN, vitals as above no acute distress Respiratory: Auscultation: + diminished lung sounds, + crackles (BL bases) and + rhonchi (faint, BL) Cardiovascular: Rate/Rhythm: regular rate and + irregularly irregular E xtremities: + edema (+1 edema BLE) Skin: left 2-5 toes necrotic/mummified, some mild surrounding erythema Neurologic: no focal motor deficits Psychiatric: Orientation: alert and oriented to person Insight: + limited insight Results & Data Results & Data Vital Signs (Past 12 Hours) Vital Signs Temp Pulse Resp BP Pulse Ox O2 Del Method 11/02/24 12:09 Room Air 11/02/24 11:37 36.2 C L 85 16 109/76 97 Room Air 11/02/24 08:01 36.4 C L 87 18 129/80 97 Room Air Laboratory Results Short CBC 11/02/24 Range/Units 06:11 WBC 9.57 (4.8-10.8) K/ul Hgb 13.6 L (14.0-18.0) g/dl Hct 40.0 L (42.0-52.0) % Plt Count 286 (130-400) K/uL BMP 11/02/24 06:11 Sodium 132 L Potassium 3.6 Chloride 96 L Carbon Dioxide 28 BUN 17 Creatinine 0.95 Glucose 108 H Calcium 9.2 Liver Function 11/02/24 Range/Units 10:25 Albumin 2.4 L (3.4-5.0) gm/dl
--- NOTE | 2024-11-02 14:47 | CT Scan Report ---
CT SCAN OF THE CHEST WITHOUT IV CONTRAST CLINICAL HISTORY: Abnormal chest x-ray. Right hilar density. COMPARISON STUDY: Chest x-ray dated 11/01/2024. CT angiogram of the abdomen dated 11/01/2024. TECHNIQUE: CT scan of the thorax was performed from the thoracic inlet to the upper abdomen. Images are reviewed in the axial, sagittal, and coronal planes. IV contrast was not administered for this ex amination as per the referring clinician. A dose lowering technique was utilized adhering to [facility] DOSE: 1068.51 mGy.cm FINDINGS: Thyroid: Normal in size and heterogeneous in attenuation. Thoracic aorta: There is atherosclerotic calcification of the thoracic aorta, which is normal in sheri lianne and demonstrates standard 3-vessel arch anatomy. Heart: The heart is enlargement noting trace pericardial effusion. The coronary arteries and mitral a nnulus are densely calcified. There is enlargement of the main pulmonary arteries suggesting pulmonar y artery hypertension. Lungs and pleural spaces: There are small left and moderate right pleural effusions with dependent co nsolidation. Curvilinear opacities in the right middle and right lower lobes is typical for round ate lectasis. There are scattered calcified granulomas. The trachea and central airways are clear. A 6 lm right middle lobe nodule is seen on image #138. An 11 mm groundglass opacity is seen in the left upp er lobe on image #61. Mediastinum: A precarinal node measures 10 mm short axis. Additional subcentimeter mediastinal nodes are noted. These are pathologically indeterminate and may be reactive. Marjorie: Not well assessed without IV contrast. Axillae: There is no axillary lymphadenopathy. Upper abdomen: The liver is cirrhotic in morphology and heterogeneous in attenuation with nodularity of the surface contour. There are numerous low-attenuation hepatic nodules, likely corresponding to n umerous hypervascular lesions seen on the recent abdominal CT. The gallbladder is distended and conta ins calcified gallstones. There is a 2.3 cm pathologically indeterminate right adrenal nodule. Residu al excreted contrast is seen within the renal collecting systems. There are perigastric varices. Skeletal structures: The skeletal structures are osteopenic. Degenerative change and hyperkyphosis is noted in the thoracic spine. No lytic or blastic bony lesions are seen. Advanced arthritic change is seen in the shoulders. Calcified joint bodies are noted on the right. There are chronic/healed bilat eral rib fractures. IMPRESSION: 1. Cardiomegaly. 2. Small left and moderate right pleural effusions with dependent consolidation. 3. There are foci of round atelectasis in the right middle and right lower lobes. This may correspond to the nodular opacity suggested on the 11/01/2024 chest x-ray. 4. The liver is cirrhotic in morphology and heterogeneous attenuation. 5. There are numerous low-attenuation hepatic nodules which were hypervascular on yesterday's CT paul ogram. Although indeterminate, given cirrhotic morphology multifocal hepatocellular carcinoma is to b e excluded. Correlate with serum AFP levels. 6. Gallbladder is distended and contains numerous gallstones. There is no clear CT evidence of acute cholecystitis and acquired images. 7. There is a 6 mm right middle lobe pulmonary nodule and a possible 11 mm groundglass lesion in the left upper lobe. Follow-up is recommended as per the Fleischner criteria. See below. 8. Additional findings as above. Please refer to below summary of Fleischner criteria recommendations for follow-up of incidental CT n odules (Marcie Guaman, Guidelines for management of small pulmonary nodules detected on CT scans: A sta tement from the Fleischner Society, Radiology 237: [phone].) SOLID NODULES Solitary nodule size: <6 mm * low risk patients: no follow-up needed * high risk patients: optional CT at 12 months Solitary nodule size: 6-8 mm * low risk patients: follow-up at 6-12 months, then consider further follow-up at 18-24 months * high risk patients: initial follow-up CT at 6-12 months and then at 18-24 months if no change Solitary nodule size: >8 mm * either low or high risk patients - consider follow-up CT at 3 months, and/or CT-PET, and/or biopsy Multiple nodules size: <6 mm * low risk patients: no routine follow-up * high risk patients: optional CT at 12 months Multiple nodules size: 6-8 mm * low risk patients: follow-up at 3-6 months, then consider further follow-up at 18-24 months * high risk patients: follow-up at 3-6 months, then at 18-24 months if no change Multiple nodules size: >8 mm * low risk patients: follow-up at 3-6 months, then consider further follow-up at 18-24 months * high risk patients: follow-up at 3-6 months, then at 18-24 months if no change Note: newly detected indeterminate nodule in persons 35 years of age or older. * low risk patients: minimal or absent history of smoking and/or other known risk factors * high risk patients: history of smoking or of other known risk factors (e.g. first degree relative with lung cancer, or exposure to asbestos, radon, uranium) * if a nodule up to 8 mm is partly solid or is ground glass further follow-up is required after 24 m onths to exclude possible slow growing adenocarcinoma (JAQUELINE) SUBSOLID NODULES Solitary pure ground-glass nodule * nodule size <6 mm - no CT follow-up required * nodule size >=6 mm - follow-up CT at 6-12 months, then every 2 years until 5 years Solitary part-solid nodule * nodule size <6 mm - no CT follow-up required * nodule size >=6 mm - follow-up CT at 3-6 months. If unchanged, and solid component remains <6 mm, then annual follow-up for 5 years Multiple subsolid nodules * nodule size <6 mm - follow-up CT at 3-6 months, consider further follow-up at 2 and 4 years if sta ble * nodule size >=6 mm - follow-up CT at 3-6 months, subsequent management based on the most suspiciou s nodule(s) ACT 112: Negative or not required by law. Electronically signed by: Juan J Main M.D. 11/02/2024 2:46 PM
[2024-11-02] MEDS: MICONAZOLE NITRATE POWDER 85 GM EXT SCH (23:30)
[2024-11-03 06:17] LABS: Hematocrit (blood only) 39.4 % (42.0-52.0); Hemoglobin 13.1 g/dl (14.0-18.0); Mean Corpuscular Hemoglobin 31.6 pg (25.0-34.0); Mean Corpuscular Volume 95.2 fL (80.0-100.0); Platelet Count 245 K/uL (130-400); RDW Standard Deviation 48.0 fL (36.4-46.3); Red Blood Count 4.14 M/uL (4.70-6.10); White Blood Count 9.49 K/ul (4.8-10.8)
[2024-11-03 06:30] LABS: Anion Gap 7.0 (3-11); Calcium 8.8 mg/dl (8.6-10.3); Carbon Dioxide 27.0 mmol/L (21-32); Chloride 96.0 mmol/L (98-107); Magnesium 1.6 mg/dl (1.7-2.4); Potassium 3.5 mmol/L (3.5-5.1); Sodium 130.0 mmol/L (136-145)
[2024-11-03 06:36] LABS: Blood Urea Nitrogen 17.0 mg/dl (6-23); Creatinine Clr Calc Pharmacy 68.5 ml/min; Glucose 103.0 mg/dl (70-99(Fasting))
--- NOTE | 2024-11-03 07:47 | Hospitalist Progress Note ---
<Statement entered by Sammy Gore, DO - 11/03/24 15:56> I was available to MONIQUE Discussed plan with MONIQUE, agree Date of Service November 03, 2024 Assessment & Plan (1) Tissue necrosis with gangrene in peripheral vascular disease: Plan: Patient presenting form [facility] for evaluation of necrotic left toes. Has been at [facility] since 08/25/[address] [facility] for right knee septic arthritis. Cultures grew group B strep and patient completed Ceftriaxone on 09/13/24. Patient also with history of PVD - follows with [facility] vascular - S/P R ADRIAN & Peroneal angioplasties and right 5th toe amp on 04/09/[address] Mina for severe PAD & gangrene right 5th toe. S/P R Peroneal angioplasty, right 5th MTH amputation, right 4th toe proximal metatarsal amputation on 07/05/[address] Mina for PAD, OM of 5th metatarsal and necrosis of 4th right toe. Podiatry and vascular consults Continue empiric IV Zosyn and IV Vanco Blood cultures NGTD, Nasal MRSA +, No open areas or drainage to culture Does not appear septic Needs Left TMA s/p CTA w/ runoff - no indication for intervention per vascular however low threshold to reconsult for concerns of healing or perfusion of TMA site Given BL pleural effusions, recommend holding on OR for today and continue diuresis and obtain pre op cardiac evaluation Discussed with Dr. Oconnell, who is tentatively planning for OR on Monday 11/06. Hold Lovenox after Wednesday 9/ PM dose. (2) Wound of left lower extremity: Plan: Wounds noted to left lateral ankle and left lateral/posterior calf Podiatry following w/ wound care recs - no concerns for soft tissue infection at this time however wound culture pending, continue empiric Vanco and Zosyn until operative cultures obtained on Wednesday (3) Bilateral pleural effusion: (4) Acute heart failure with preserved ejection fraction (HFpEF): Plan: CXR on admission suggestive of congestive changes with bilateral pleural effusions Repeat CXR on 11/01 shows Cardiomegaly with interstitial pulmonary edema. Unchanged right greater than left layering pleural effusions with bibasilar opacities Started IV Lasix 40mg IV daily on 11/01 Currently on room air, denies shortness of breath Attempted right sided thoracentesis mostly for diagnostic purposes given history of hepatocellular carcinoma and liver lesions noted on CTA, however patient declined procedure Note history of prior right pleural effusion s/p thoracentesis in 2019 with cytology being negative at that time Underlying cirrhosis likely contributing as well Echo 07/2024 from [facility]: EF 65%, no significant valvular disease Weight on admission 98.9kg -> 94.2kg on 11/02 Knott placed for I/Os, daily weights, low Na+ diet, 1500ml FR Cardio consult for pre op eval - ECG unchanged from previous, moderate perioperative cardiac risk - Recommend resting echo, continue beta sal, resume Eliquis post op when able, add high intensity statin post-operatively, continue spironolactone and 40mg IV lasix daily for now (5) Pulmonary lesion, right: Plan: CXR shows 3.9 cm right hilar nodular focus is likely secondary to summation density associated with pulmonary vasculature CT chest shows foci of round atelectasis in RML and RLL that may correspond to opacity described in CXR Multiple pulmonary nodules noted on CT chest - follow up as outpatient (6) Insulin-requiring or dependent type II diabetes mellitus: Plan: Hgb A1c 5.8 Lantus/Novolog while hospitalized (7) PAF (paroxysmal atrial fibrillation): Plan: Rate controlled on metoprolol Anticoagulated with Eliquis - currently on Lovenox bridge due to anticipated procedure Mg and K repleted today, goal Mg>2 and K >4 (8) Chronic hyponatremia: Plan: Due to underlying liver cirrhosis Na+ 131 -> 130 -> 132 Started on 1500 FR on 11/01 (9) History of pulmonary embolism: Plan: Lovenox bridge as above (10) Buttock wound: Plan: Left buttock wound DTI Right buttock stage II Does not appear infected, wound photos reviewed Wound care nurse following (11) Hepatocellular carcinoma: Plan: Hx of HCC s/p tumor ablation in 2019, last chemo in 2022 - discontinued due to poor tolerance, patient was previously on hospice for about 3 months however stabilized CTA showed multiple liver lesions, last liver MRI in [address] Cordell Guzman Discussed with , recommend outpatient follow up with Dr. Guzman for further discussion regarding additional imaging (12) Alcoholic cirrhosis: Plan: BL pleural effusions as above, does not appear encephalopathic Continue Lasix/Spironolactone, lactulose DVT PROPHYLAXIS Therapeutic dose Lovenox as above Dispo: Anticipate d/c back to [facility] once medically stable, tentative plans for left TMA on Monday 11/06 I spent a total of 50 minutes coordinating, documenting, and providing care for this patient excluding time spent in the performance of separately billed services or time spent by another provider/QHP. Admission and Anticipated Discharge Date Admission Date: October 30, 2024 Subjective Follow up for gangrene of left foot. Patient seen and examined. Sitting up in bed, alert however only oriented to self currently. Moist cough noted, patient denies F/C, chest pain and shortness of breath. Reports pain in left foot with movement. Review of Systems Review of Systems: At least ten systems reviewed and negative except as noted in the HPI. Physical Exam Physical Exam: Gen: WD/WN, NAD, resting in bed comfortably, pleasant, limited insight HEENT: Normocephalic, atraumatic,mucous membranes moist Lung: Diminished R>L Heart: irregular rate& rhythm Abdomen: Soft, NT, ND +BS x 4 Extremities:+L foot with necrotic 2-5th digits, mild surrounding erythema Skin: Warm Results & Data Results & Data Vital Signs (Past 12 Hours) Vital Signs Temp Pulse Resp BP Pulse Ox O2 Del Method 11/03/24 00:07 Room Air 11/02/24 22:42 36.4 C L 76 18 117/76 98 Room Air Laboratory Results Short CBC 11/03/24 Range/Units 05:50 WBC 9.49 (4.8-10.8) K/ul Hgb 13.1 L (14.0-18.0) g/dl Hct 39.4 L (42.0-52.0) % Plt Count 245 (130-400) K/uL BMP 11/03/24 05:50 Sodium 130 L Potassium 3.5 Chloride 96 L Carbon Dioxide 27 BUN 17 Creatinine 0.98 Glucose 103 H Calcium 8.8 Diagnostic Findings Ankle X-Ray 10/30/24 10:50 EXAM: Radiographs of the Left Ankle 3 Views INDICATION: Nonhealing wounds TECHNIQUE: Frontal, lateral and oblique views of the left ankle. COMPARISON: No relevant prior studies available. FINDINGS: Limitations: None. Bones/joints: Probable old fracture of the distal tibia. No acute fracture. No periosteal reaction or erosion. Soft tissues: There is diffuse mild soft tissue swelling. There is a skin defect plantar to the level of the proximal metatarsal seen on the lateral view. Dense atherosclerotic calcification present. No tracking soft tissue gas. No radiopaque foreign body. IMPRESSION: 1. Mild soft tissue swelling. With plantar midfoot wound. 2. No acute osseous abnormality. ACT 112: N/A Electronically signed by Kenia Bergeron 10-30-2024 11:56 AM Ankle X-Ray 10/30/24 10:50 EXAM: Radiographs of the Right Ankle 3 Views INDICATION: Nonhealing wounds. TECHNIQUE: Frontal, lateral and oblique views of the right ankle. COMPARISON: No relevant prior studies available. FINDINGS: Limitations: None. Bones/joints: Well-corticated ossicle noted adjacent to the tip of the medial malleolus likely related to old fracture. No acute fracture. There is mild smooth undulation in cortical thickening of the lateral aspect of the distal fibula subjacent to the cutaneous erosion. Soft tissues: No abnormality noted. No radiopaque foreign body noted. Vasculature: There is a cutaneous ulcer over the lateral distal fibula. There is no soft tissue gas. Dense atherosclerotic calcifications present. IMPRESSION: Cutaneous ulceration noted over the lateral distal fibula. The underlying cortex is somewhat hypertrophic which may indicate chronic osteomyelitis. No definite acute destructive changes. ACT 112: N/A Electronically signed by Kenia Bergeron 10-30-2024 11:49 AM Foot X-Ray 10/30/24 10:50 EXAM: Radiographs of the Left Foot Complete 3 Views INDICATION: Nonhealing wounds TECHNIQUE: Frontal, lateral and oblique views of the left foot. COMPARISON: No relevant prior studies available. FINDINGS: Bones/joints: The bones are demineralized. There is mild joint space narrowing. There is suboptimal assessment of the fourth proximal phalanx which appears somewhat angulated. No visible periosteal reaction. Soft tissues: There is a cutaneous wound seen on the lateral view plantar to the proximal metatarsals. No tracking gas. Dense atherosclerosis. Diffuse soft tissue swelling. IMPRESSION: 1. Plantar midfoot ulcer. 2. Suboptimal assessment of the fourth proximal phalanx which could be fractured or eroded. Correlate clinically. ACT 112: N/A Electronically signed by Kenia Bergeron 10-30-2024 11:53 AM Foot X-Ray 10/30/24 10:50 EXAM: Radiographs of the Right Foot Complete 3 Views INDICATION: Nonhealing wounds. TECHNIQUE: Frontal, lateral and oblique views of the right foot. COMPARISON: No relevant prior studies available. 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 The bones are generally demineralized. There is mild narrowing of the joints. No erosion or fracture. Soft tissues: Mild generalized soft tissue swelling. Dense atherosclerotic calcification noted. No radiopaque foreign body identified. No tracking gas. IMPRESSION: Soft tissue swelling. Chronic changes of the osseous structures. No acute abnormality. ACT 112: N/A Electronically signed by Kenia Bergeron 10-30-2024 11:55 AM Chest X-Ray 10/30/24 22:57 EXAM: XR chest 1V portable CLINICAL HISTORY: Cough. TECHNIQUE: An X-ray image of the chest is obtained in AP projection. COMPARISON: No prior studies are available for comparison. FINDINGS: Pulmonary Parenchyma: Hilar and perihilar congestion. Inhomogeneous opacification with nodular opacities identified in the right mid-lower and left lower zone. Obliteration of the right costophrenic angle. Blunting of the left costophrenic angle is seen. Heart and Mediastinum: Heart size is enlarged. No mediastinal widening or masses. No hilar or mediastinal lymphadenopathy. Bony Thorax: Bony thorax appears intact without fractures or deformities. Osteoarthritic changes at the right glenohumeral joint. Degenerative changes are seen in the spine. Soft Tissues: Soft tissues overlying the chest wall are unremarkable. IMPRESSION: 1. The above-described imaging appearances are suggestive of congestive changes with bilateral pleural effusion and underlying consolidation/collapse. Needs clinical correlation and follow-up. 2. Cardiomegaly. Electronically signed by Vamshi Samson 10-31-2024 01:17 AM Duplex Scan Lower Extremity Artery 10/31/24 09:12 US arterial duplex LE LT CLINICAL HISTORY: necrotic foot COMPARISON STUDY: No previous studies for comparison. FINDINGS: There was triphasic flow within the left common femoral artery. Peak velocities measured 87 cm/s. There was triphasic flow within the left profunda artery. There is triphasic flow within the left superficial femoral artery. Peak systolic velocities measured 78 cm/s. There was biphasic flow within the left popliteal artery. The peak systolic velocities measured 57 cm/s. There is mixed monophasic and biphasic flow within the posterior tibial with a peak systolic velocity of 79 cm/s. There was monophasic flow within the left anterior tibial, with a peak systolic velocity of 67 cm/s. There is monophasic flow within the left peroneal artery which was poorly visualized. There are areas of possible peroneal artery occlusion. The systolic velocity was 42 cm/s. There is monophasic dorsalis pedis systolic velocity 40 cm/s. IMPRESSION: 1. No evidence of stenosis within the common femoral superficial femoral or popliteal arteries 2. Poor visualization of the calf vessels. Segmental occlusions of the peroneal artery cannot be excluded. ACT 112: Negative or not required by law. Electronically signed by: Sumeet Stevens M.D. 10/31/2024 12:12 PM Aorta w/Runoff CTA 11/01/24 13:12 CT ang AA runof w andrea clarke CLINICAL HISTORY: left foot gangrene, assess arterial disease burden COMPARISON STUDY: Arterial duplex study dated 10/31/2024 FINDINGS: Patient was scanned in a dynamic helical fashion during intravenous administration of 120 cc of Optiray 320. Visualized portions the lung bases reveal bilateral pleural effusions with presumed bibasilar atelectatic change. The liver has a cirrhotic morphology. There are innumerable hypervascular hepatic nodules. There is milk of calcium within the gallbladder. There is no evidence of abdominal aortic aneurysm. There is no evidence of hemodynamically significant celiac or superior mesenteric artery proximal stenosis There is a 50% diameter stenosis involving the inferior mesenteric artery origin. Atheromatous plaque is visualized at the origin of the renal arteries but a hemodynamic significant stenosis is not felt to be present. There is no evidence of common iliac artery stenosis. There is no evidence of external iliac artery stenosis. There is no evidence of hemodynamically significant common femoral artery stenosis. On the right, there are mild to moderate atheromatous changes within the right superficial femoral artery. There is no evidence of hemodynamic significant stenosis. Moderate atheromatous changes are present within the right popliteal artery without evidence of a hemodynamically significant stenosis. There are multifocal right peroneal artery occlusions. There are multifocal right anterior tibial and posterior tibial artery occlusions. On the left there are mild to moderate atheromatous changes within the superficial femoral artery without evidence of a hemodynamically significant stenosis. There is mild to moderate atheromatous change within the left popliteal without evidence of hemodynamic significant stenosis. There are multifocal occlusions involving the left anterior tibial and posterior tibial artery. The peroneal artery demonstrates multifocal stenoses but appears to be patent to the ankle. IMPRESSION: 1. No evidence of hemodynamically significant aortic, celiac, superior mesenteric, or renal artery stenosis 2. 50% stenosis of the inferior mesenteric artery origin 3. No evidence of hemodynamically significant common iliac, external iliac, common femoral, superficial femoral, or popliteal arteries. 4. Severe bilateral trifurcation lower extremity arterial disease with multifocal right anterior tibial, posterior tibial, and peroneal artery occlusions. On the left there are multifocal anterior tibial and posterior artery occlusions. The left peroneal artery contains multiple sclerotic lesions but appears patent to the ankle 5. Bilateral pleural effusions 6. Cirrhotic morphology of the liver with innumerable hypervascular hepatic nodules. Clinical correlation and possible MRI follow-up is recommended. ACT 112: Negative or not required by law. Electronically signed by: Sumeet Stevens M.D. 11/01/2024 4:40 PM Chest X-Ray 11/01/24 13:40 XR chest 1V portable HISTORY: 84 years-old Male CHF acute shortness of breath COMPARISON: 10/31/2024 TECHNIQUE: AP view the chest FINDINGS: Cardiac silhouette is enlarged. Pulmonary vascular congestion with interstitial coarsening. Unchanged layering pleural effusions, right greater than left with bibasilar opacities. Right hilar 3.9 cm nodular focus is again seen. 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 Cardiomegaly with interstitial pulmonary edema. 2. Unchanged right greater than left layering pleural effusions with bibasilar opacities. 3. 3.9 cm right hilar nodular focus is likely secondary to summation density associated with pulmonary vasculature. A precautionary nonemergent follow-up chest CT may be considered in order to exclude adenopathy versus pulmonary lesion. ACT 112: Negative or not required by law. The above report was generated using voice recognition software. It may contain grammatical, syntax or spelling errors. Electronically signed by: Joss Juarez M.D. 11/01/2024 3:[address] 11/02/24 08:00 CT SCAN OF THE CHEST WITHOUT IV CONTRAST CLINICAL HISTORY: Abnormal chest x-ray. Right hilar density. COMPARISON STUDY: Chest x-ray dated 11/01/2024. CT angiogram of the abdomen dated 11/01/2024. TECHNIQUE: CT scan of the thorax was performed from the thoracic inlet to the upper abdomen. Images are reviewed in the axial, sagittal, and coronal planes. IV contrast was not administered for this examination as per the referring clinician. A dose lowering technique was utilized adhering to the principles of ALARA. CT DOSE: 1068.51 mGy.cm FINDINGS: Thyroid: Normal in size and heterogeneous in attenuation. Thoracic aorta: There is atherosclerotic calcification of the thoracic aorta, which is normal in caliber and demonstrates standard 3-vessel arch anatomy. Heart: The heart is enlargement noting trace pericardial effusion. The coronary arteries and mitral annulus are densely calcified. There is enlargement of the main pulmonary arteries suggesting pulmonary artery hypertension. Lungs and pleural spaces: There are small left and moderate right pleural effusions with dependent consolidation. Curvilinear opacities in the right middle and right lower lobes is typical for round atelectasis. There are scattered calcified granulomas. The trachea and central airways are clear. A 6 lm right middle lobe nodule is seen on image #138. An 11 mm groundglass opacity is seen in the left upper lobe on image #61. Mediastinum: A precarinal node measures 10 mm short axis. Additional subcentimeter mediastinal nodes are noted. These are pathologically indeterminate and may be reactive. Marjorie: Not well assessed without IV contrast. Axillae: There is no axillary lymphadenopathy. Upper abdomen: The liver is cirrhotic in morphology and heterogeneous in attenuation with nodularity of the surface contour. There are numerous low- attenuation hepatic nodules, likely corresponding to numerous hypervascular lesions seen on the recent abdominal CT. The gallbladder is distended and contains calcified gallstones. There is a 2.3 cm pathologically indeterminate right adrenal nodule. Residual excreted contrast is seen within the renal collecting systems. There are perigastric varices. Skeletal structures: The skeletal structures are osteopenic. Degenerative change and hyperkyphosis is noted in the thoracic spine. No lytic or blastic bony lesions are seen. Advanced arthritic change is seen in the shoulders. Calcified joint bodies are noted on the right. There are chronic/healed bilateral rib fractures. IMPRESSION: 1. Cardiomegaly. 2. Small left and moderate right pleural effusions with dependent consolidation. 3. There are foci of round atelectasis in the right middle and right lower lobes. This may correspond to the nodular opacity suggested on the 11/01/2024 chest x-ray. 4. The liver is cirrhotic in morphology and heterogeneous attenuation. 5. There are numerous low-attenuation hepatic nodules which were hypervascular on yesterday's CT angiogram. Although indeterminate, given cirrhotic morphology multifocal hepatocellular carcinoma is to be excluded. Correlate with serum AFP levels. 6. Gallbladder is distended and contains numerous gallstones. There is no clear CT evidence of acute cholecystitis and acquired images. 7. There is a 6 mm right middle lobe pulmonary nodule and a possible 11 mm groundglass lesion in the left upper lobe. Follow-up is recommended as per the Fleischner criteria. See below. 8. Additional findings as above. Please refer to below summary of Fleischner criteria recommendations for follow- up of incidental CT nodules (Marcie Guaman, Guidelines for management of small pulmonary nodules detected on CT scans: A statement from the Fleischner Society, Radiology 237: [phone].) SOLID NODULES Solitary nodule size: <6 mm * low risk patients: no follow-up needed * high risk patients: optional CT at 12 months Solitary nodule size: 6-8 mm * low risk patients: follow-up at 6-12 months, then consider further follow-up at 18-24 months * high risk patients: initial follow-up CT at 6-12 months and then at 18-24 months if no change Solitary nodule size: >8 mm * either low or high risk patients - consider follow-up CT at 3 months, and/or CT-PET, and/or biopsy Multiple nodules size: <6 mm * low risk patients: no routine follow-up * high risk patients: optional CT at 12 months Multiple nodules size: 6-8 mm * low risk patients: follow-up at 3-6 months, then consider further follow-up at 18-24 months * high risk patients: follow-up at 3-6 months, then at 18-24 months if no change Multiple nodules size: >8 mm * low risk patients: follow-up at 3-6 months, then consider further follow-up at 18-24 months * high risk patients: follow-up at 3-6 months, then at 18-24 months if no change Note: newly detected indeterminate nodule in persons 35 years of age or older. * low risk patients: minimal or absent history of smoking and/or other known risk factors * high risk patients: history of smoking or of other known risk factors (e.g. first degree relative with lung cancer, or exposure to asbestos, radon, uranium) * if a nodule up to 8 mm is partly solid or is ground glass further follow-up is required after 24 months to exclude possible slow growing adenocarcinoma (JAQUELINE) SUBSOLID NODULES Solitary pure ground-glass nodule * nodule size <6 mm - no CT follow-up required * nodule size >=6 mm - follow-up CT at 6-12 months, then every 2 years until 5 years Solitary part-solid nodule * nodule size <6 mm - no CT follow-up required * nodule size >=6 mm - follow-up CT at 3-6 months. If unchanged, and solid component remains <6 mm, then annual follow-up for 5 years Multiple subsolid nodules * nodule size <6 mm - follow-up CT at 3-6 months, consider further follow-up at 2 and 4 years if stable * nodule size >=6 mm - follow-up CT at 3-6 months, subsequent management based on the most suspicious nodule(s) ACT 112: Negative or not required by law. Electronically signed by: Juan J Main M.D. 11/02/2024 2:46 PM Chest Ultrasound 11/02/24 11:51 LIMITED CHEST ULTRASOUND CLINICAL HISTORY: Thoracentesis requested COMPARISON STUDY: Chest CT dated 11/02/2024 FINDINGS: Ultrasound imaging of the right posterior thorax was performed. A small right pleural effusion was identified, estimated at 500 mL. After discussion with patient, he declined the thoracentesis at this time. Referring provider will be notified. IMPRESSION: Small right pleural effusion as above. Patient declined thoracentesis at this time. Performed, dictated, and signed by Johnny Ferrell PA-C; to be co-signed by Dr. Juan J Main. Electronically signed by: Juan J Main M.D. 11/02/2024 2:05 PM
--- NOTE | 2024-11-03 08:14 | Pharmacy Report ---
Pharmacy PK ABX Note - Date of Service November 03, 2024 - Assessment and Plan Assessment 11/03 * Will scale back slightly on vancomycin dosing as AUC/JAIDEN predicted to exceed 600 with ongoing dosing on this regimen. Will decrease to 750 mg iv q 12 hours and recheck level again in 2 days 11/02 * Vancomycin level came back today at ~19 mcg/ml - dosing associated with therapeutic AUC/JAIDEN therefore will continue current regimen. Per notes, patient planning for transmetatarsal amputation 11/06 * 84 year old M receiving vancomycin/zosyn for diabetic foot infection. Patient with tissue necrosis/gangrene of left toes hx of PVD. Previous admission at OSH for R knee septic arthritis and completed course of ceftriaxone on 09/13/24. Podiatry and vascular consulted, patient NPO for possible intervention. Blood cultures pending. Plan Vancomycin * Decrease to 750 mg iv q 12 hours * Recheck vancomycin level 11/05 Pharmacy will continue to follow and will adjust dose/frequency as necessary. Thank you. Pharmacy has transitioned to AUC monitoring for vancomycin. AUC/JAIDEN is the preferred PK/PD target and is associated with decreased risk of nephrotoxicity compared to traditional trough targets.
--- NOTE | 2024-11-03 09:13 | Cardiology Consultation ---
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 Wound culture positive for Proteus mirabilis. Transmetatarsal amputation recommended by podiatry. ECG with evidence of left ventricular hypertrophy and secondary ST-T wave changes. Unchanged when compared to prior tracing. Fair compensation from a heart failure perspective. Agree with continuing diuretic therapy with IV Lasix and oral spironolactone at this time. Outpatient diuretic dose, Lasix 20 mg daily. Patient is considered moderate perioperative cardiovascular risk. Recommend resting 2D transthoracic echocardiogram for further assessment of systolic murmur and left ventricular systolic function. Continue metoprolol uninterrupted perioperatively. Resume Eliquis postoperatively when bleeding risk is deemed acceptable by the operating surgeon. Continue Lovenox bridging therapy. Recommend addition of statin therapy postoperatively. High intensity statin therapy preferred due to history of peripheral vascular disease. Thank you for allow me to participate in the care of your patient. Further recommendations pending review of echocardiogram. History of Present Illness Reason for Consultation: CHF pre op evaluation Requesting Physician: Teresa ROUSE Attending Physician: Sammy Gore DO History of Present Illness 84-year-old male presented to the emergency department 10/30/2024 secondary to wound infection. Evaluated by podiatry and vascular surgery. Transmetatarsal amputation recommended and is currently scheduled for Wednesday. Carries history of chronic atrial fibrillation, heart failure with preserved ejection fraction, and peripheral vascular disease. Most recent echocardiogram performed 08/12/2024 demonstrates preserved LV systolic function with left ventricular hypertrophy and aortic valve sclerosis without stenosis. Chronically treated with low-dose aspirin, Toprol-XL, apixaban, furosemide, and spironolactone in the outpatient setting. Currently resting comfortably. Denies chest pain or shortness of breath at rest. Heart rate controlled per vital signs, however, patient currently not on telemetry. Poor historian. Denies personal history of coronary disease, congestive heart failure, or rheumatic fever as a child. Treated with IV fur osemide during hospitalization due to evidence of diastolic heart failure and right sided pleural effusion. Patient declined thoracentesis. Oxygen saturation 98% on room air. No orthopnea, PND, or lower extremity edema. Allergies Allergy/AdvReac Type Severity Reaction Status Date / Time No Known Allergies Allergy Verified 10/31/24 16:11 Home Medications Medication Instructions Recorded Confirmed Type apixaban 5 mg tablet (Eliquis) 5 mg PO BID 10/30/24 10/31/24 History furosemide 20 mg tablet 20 mg PO DAILY 10/30/24 10/31/24 History insulin glargine 100 unit/mL (3 18 unit subcut HS 10/30/24 10/31/24 History mL) subcutaneous pen (Lantus Solostar U-100 Insulin) lactulose 10 gram/15 mL oral 15 ml PO BID 10/30/24 10/31/24 History solution metoprolol succinate 100 mg 100 mg PO DAILY 10/30/24 10/31/24 History tablet,extended release 24 hr spironolactone 25 mg tablet 12.5 mg PO DAILY 10/30/24 10/31/24 History trazodone 50 mg tablet 50 mg PO DAILY 10/30/24 10/31/24 History acetaminophen 500 mg tablet 1,000 mg PO TID 10/31/24 10/31/24 History (Tylenol Extra Strength) aspirin 81 mg tablet 81 mg PO DAILY 10/31/24 10/31/24 History sennosides 8.6 mg-docusate sodium 2 tab-cap PO HS 10/31/24 10/31/24 History 50 mg tablet (Senna-S) tramadol 50 mg tablet 50 mg PO Q6H PRN Pain 10/31/24 10/31/24 History Patient History Medical History History of pulmonary embolism Chronic hyponatremia PAF (paroxysmal atrial fibrillation) Cognitive dysfunction Hepatocellular carcinoma PVD (peripheral vascular disease) CKD (chronic kidney disease) Pulmonary emboli Dyslipidemia HTN (hypertension) Alcoholic cirrhosis Amputation toe Sepsis Atrial fibrillation Social History Smoking Status: Never smoker Second Hand Exposure: No; Do You Dip or Chew Tobacco: No; Hx Alcohol Use: No Hx Substance Use: No Preferred Language: Greek Communication Ability: Effective Receiving Manager Required: No Beliefs That Will Affect Care: None Current Living Situation: Assisted Current Living Situation Comment: [facility] Other Information That Helps Us Care for You: No Feels Safe at Home: Yes Safety Concerns: Feels Safe At This Time Assistive Devices: Wheelchair Review of Systems Review of Systems: All systems reviewed & are unremarkable except as noted in Subjective Physical Exam Constitutional: well nourished and + ill appearing; no acute distress Respiratory: normal respiratory effort; no respiratory distress Auscultation: + diminished lung sounds (Right base); no rales, no rhonchi and no wheezes Cardiovascular: Rate/Rhythm: + irregularly irregular Heart Sounds: normal S1, normal S2 and + murmur (1/6 systolic ejection murmur) Vessels: no JVD Extremities: no edema Left foot: dry gangrene noted to digits 2, 3, 4 and 5. +Erythema Gastrointestinal (Abdomen): Inspection/Auscultation: abdomen normal to inspection; abdomen not distended Percussion/Palpation: abdomen soft; abdomen nontender, no guarding and abdomen not rigid Neurologic: moves all extremities; no focal motor deficits Results & Data Vital Signs (Past 12 Hours) Vital Signs Temp Pulse Resp BP Pulse Ox O2 Del Method 11/03/24 07:58 36.3 C L 59 L 20 107/72 98 Room Air 11/03/24 00:07 Room Air 11/02/24 22:42 36.4 C L 76 18 117/76 98 Room Air Laboratory Results Cardiac Enzymes 11/02/24 11/02/24 Range/Units 10:24 10:25 Lactate Dehydrogenase 173 (86-244) U/L B-Natriuretic Peptide 334 H (0-100) pg/ml Coagulation 11/02/24 Range/Units 10:24 B-Natriuretic Peptide 334 H (0-100) pg/ml CBC 11/03/24 Range/Units 05:50 WBC 9.49 (4.8-10.8) K/ul RBC 4.14 L (4.70-6.10) M/uL Hgb 13.1 L (14.0-18.0) g/dl Hct 39.4 L (42.0-52.0) % Plt Count 245 (130-400) K/uL Comprehensive Metabolic Panel 11/02/24 11/03/24 Range/Units 10:25 05:50 Sodium 130 L (136-145) mmol/L Potassium 3.5 (3.5-5.1) mmol/L Chloride 96 L (98-107) mmol/L Carbon Dioxide 27 (21-32) mmol/L BUN 17 (6-23) mg/dl Creatinine 0.98 (0.6-1.4) mg/dl Glucose 103 H (70-99(Fasting)) mg/dl Calcium 8.8 (8.6-10.3) mg/dl Total Protein 6.4 (6.0-8.3) gm/dl Albumin 2.4 L (3.4-5.0) gm/dl Intake and Output 11/02/24 11/03/24 11/03/24 22:59 06:59 14:59 Intake Total 340 / 1079.167 370 / 1079.167 100 / 100 Output Total 950 / 1250 300 / 1250 Balance -610 / -170.833 70 / -170.833 100 / 100 Intake: IV 100 / 839.167 370 / 839.167 100 / 100 Piperacillin/Tazobactam 4.5 gm 100 / 299.167 100 / 299.167 100 / 100 In 100 ml @ 25 mls/hr IV Q8H [facility] Rx#:[id number] Vancomycin HCl 1,000 mg In 270 270 / 540 ml @ 200 mls/hr IV Q12H [facility] Rx# :[id number] Oral 240 / 240 Output: Urine Amount (Catheter) 950 / 1250 300 / 1250 Knott/Indwelling 950 / 1250 300 / 1250 Other: Other Intake Source SIPS PG Care Time/CCT Total # of Minutes Spent Total Time Spent with Patient: Total time spent is greater than 50% in coordination of care (as documented) at patient's floor/unit and/or counseling patient: Coding Level of Care Code 29021 INT INP/OBS CARE 3/75MIN Diagnoses Preop cardiovascular exam Z01.810 Chronic atrial fibrillation I48.20 Chronic heart failure with preserved ejection fraction (HFpEF) I50.32 Heart failure chronicity: chronic Bilateral pleural effusion J90 Peripheral vascular disease due to secondary diabetes E13.51 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
[2024-11-03] MEDS: POTASSIUM CHLORIDE CRTAB 20 MEQ TABCR PO STA (09:48)
[2024-11-03] MEDS: MAGNESIUM SULFATE / D5W 1 GM/100 ML BAG IV SCH (09:51)
[2024-11-03] MEDS: FUROSEMIDE 40 MG/4 ML VIAL IV SCH (10:00)
--- NOTE | 2024-11-03 12:16 | Pharmacy Report ---
Pharmacy Glycemic Short Note 2 - Date of Service November 03, 2024 - Glycemic Short BSG Results (Last 24 hours): 11/02/24 11/02/24 11/03/24 17:26 19:45 05:50 Glucose 103 H POC Glucose 103 H 124 H 11/03/24 11/03/24 08:09 11:58 Glucose POC Glucose 108 H 153 H OUTPATIENT ANTIDIABETIC REGIMEN: * Lantus 18 units HS ASSESSMENT: 11/03 * Patient received total of 7 units of insulin yesterday, all of correctional insulin * Fasting BSG 103 mg/dL - continue same parameters today 10/31 * 84 year old admitted with DM foot infection. Pharmacy consulted for glycemic management. Patient is type 2 diabetic - NPO for possible surgical intervention. Did receive Lantus 18 units HS last evening. Fasting BSG 112 mg/dL. Blood sugars stable today. Will add a reduced scale for Lantus at HS for ongoing NPO status PLAN FOR INPATIENT GLYCEMIC CONTROL: * Hold outpatient oral diabetes medications * Basal insulin * Lantus 0-10 units HS * Bolus insulin * NovoLog per scale ACHS or Q6hrs while NPO * Goal Range: Low 110 mg/dL - High 140 mg/dL * Correction Factor: 30 mg/dL/unit * Nutritional / Prandial insulin per carb ratio of 1 unit per 10 grams CHO consumed
--- NOTE | 2024-11-03 13:08 | Electrocardiogram Report ---
Test Reason : Blood Pressure : */* mmHG Vent. Rate : 89 BPM Atrial Rate : * BPM P-R Int : * ms QRS Dur : 90 ms QT Int : 372 ms P-R-T Axes : * 46 233 degrees QTcB Int : 452 ms Atrial fibrillation Abnormal ECG No previous ECGs available Confirmed by Shaggy Moscoso ([id number]) on 11/03/2024 1:06:57 PM Referred By: REFERRED SELF Confirmed By: Shaggy Moscoso
[2024-11-03] MEDS: VANCOMYCIN 750 MG in SODIUM CHLORIDE 0.9% 250 ML IV SCH (13:36)
--- NOTE | 2024-11-03 17:00 | Podiatry Progress Note ---
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 We reviewed written informed consent for left foot transmetatarsal amputation with tendo Achilles lengthening. Reviewed benefits, risks, alternatives and risks to alternatives. All questions answered. Informed consent is signed by patient and his witnessed. Scheduled for transmetatarsal amputation and tendo Achilles lengthening 11/06/2024. Admission and Anticipated Discharge Date Admission Date: October 30, 2024 Subjective Patient seen resting comfortably in hospital bed with and [id number] present in room. Denies pain in the left foot today. Waffle boots are in place with heel tent to reduce stress to the distal aspect of the left foot. Review of Systems Review of Systems: Patient denies nausea, vomiting, fever, shortness of breath, chest pain. Denies pain in the left foot today. All other systems reviewed and negative unless detailed in HPI. Physical Exam Physical Exam: Focused lower extremity exam: Thin atrophic skin with loss of hair growth bilateral lower extremity below the knee. 3 out of 5 muscle strength at the level of the ankle to all muscle groups bilateral. Left foot: Nonpalpable pedal pulses. -Dry gangrene of the 2nd through 5th toe s of the left foot. Gangrene extends into the forefoot laterally surrounding the head of the fifth metatarsal. Well- demarcated borders. No active drainage. No malodor. Erythema to the left foot extends to the anterior ankle. -Stage IV pressure injury overlying the lateral malleolus with mild maceration of surrounding epithelial tissue. No periwound signs of local soft tissue infection. No active drainage or malodor. -Stage II pressure injury to the posteri or lateral left leg with mixed fibrotic slough and eschar tissue to the wound bed. Decreased wound dimensions since the time of admission. No active drainage. No signs of local soft tissue infection. Scant serous drainage to dressing. Right foot: Nonpalpable pedal pulses. -Stable eschar overlying incision from p revious partial 4th and 5th ray amputation. Surrounding soft tissue stained with Betadine. No active drainage or signs of local soft tissue infection. -There is an unstageable pressure injury overlying the lateral malleolus with mild maceration of periwound epithelial tissue. No active drainage. No signs of local soft tissue infection. 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
[2024-11-04 06:15] LABS: Hematocrit (blood only) 35.0 % (42.0-52.0); Hemoglobin 12.1 g/dl (14.0-18.0); Mean Corpuscular Hemoglobin 32.4 pg (25.0-34.0); Mean Corpuscular Volume 93.8 fL (80.0-100.0); Platelet Count 262 K/uL (130-400); RDW Standard Deviation 45.9 fL (36.4-46.3); Red Blood Count 3.73 M/uL (4.70-6.10); White Blood Count 10.15 K/ul (4.8-10.8)
[2024-11-04 06:33] LABS: Anion Gap 5.0 (3-11); Blood Urea Nitrogen 16.0 mg/dl (6-23); Calcium 8.1 mg/dl (8.6-10.3); Carbon Dioxide 26.0 mmol/L (21-32); Chloride 100.0 mmol/L (98-107); Creatinine Clr Calc Pharmacy 73.8 ml/min; Glucose 125.0 mg/dl (70-99(Fasting)); Magnesium 1.7 mg/dl (1.7-2.4); Potassium 3.6 mmol/L (3.5-5.1); Sodium 131.0 mmol/L (136-145)
--- NOTE | 2024-11-04 10:49 | Hospitalist Progress Note ---
<Statement entered by Sammy Gore, DO - 11/05/24 07:20> I was available to MONIQUE D/w MONIQUE Date of Service November 04, 2024 Assessment & Plan (1) Tissue necrosis with gangrene in peripheral vascular disease: Plan: Patient presenting form [facility] for evaluation of necrotic left toes. Has been at [facility] since 08/25/24 after an admission to [facility] for right knee septic arthritis. Cultures grew group B strep and patient completed Ceftriaxone on 09/13/24. Patient also with history of PVD - follows with [facility] vascular - S/P R ADRIAN & Peroneal angioplasties and right 5th toe amp on 04/09/[address] Mina for severe PAD & gangrene right 5th toe. S/P R Peroneal angioplasty, right 5th MTH amputation, right 4th toe proximal metatarsal amputation on 07/05/[address] Mina for PAD, OM of 5th metatarsal and necrosis of 4th right toe. Podiatry and vascular consults Continue empiric IV Zosyn and IV Vanco Blood cultures NGTD, Nasal MRSA +, No open areas or drainage to culture Does not appear septic Needs Left TMA s/p CTA w/ runoff - no indication for intervention per vascular however low threshold to reconsult for concerns of healing or perfusion of TMA site Given BL pleural effusions, recommend holding on OR for today and continue diuresis and obtain pre op cardiac evaluation Seen by Dr. Oconnell, who is planning for OR on Monday 11/06. Hold Lovenox after Wednesday 9/ PM dose. (2) Wound of left lower extremity: Plan: Wounds noted to left lateral ankle and left lateral/posterior calf Podiatry following w/ wound care recs - wound culture growing preliminary proteus, plan to continue empiric Vanco and Zosyn until operative cultures obtained on Wednesday (3) Bilateral pleural effusion: (4) Acute heart failure with preserved ejection fraction (HFpEF): Plan: CXR on admission suggestive of congestive changes with bilateral pleural effusions Repeat CXR on 11/01 shows Cardiomegaly with interstitial pulmonary edema. Unchanged right greater than left layering pleural effusions with bibasilar opacities Started IV Lasix 40mg IV daily on 11/01 Currently on room air, denies shortness of breath Attempted right sided thoracentesis mostly for diagnostic purposes given history of hepatocellular carcinoma and liver lesions noted on CTA, however patient declined procedure Note history of prior right pleural effusion s/p thoracentesis in 2019 with cytology being negative at that time Underlying cirrhosis likely contributing as well Echo 07/2024 from [facility]: EF 65%, no significant valvular disease Weight on admission 98.9kg -> 94.2kg on 11/02 Knott placed for I/Os, daily weights, low Na+ diet, 1500ml FR Cardio consult for pre op eval - ECG unchanged from previous, moderate perioperative cardiac risk - Resting echo 11/03 with preserved EF 65-70%, mild concentric LVH, AV sclerosis without significant stenosis - Continue beta sal, resume Eliquis post op when able, add high intensity statin post-operatively, continue spironolactone and 40mg IV lasix daily for now (5) Pulmonary lesion, right: Plan: CXR shows 3.9 cm right hilar nodular focus is likely secondary to summation density associated with pulmonary vasculature CT chest shows foci of round atelectasis in RML and RLL that may correspond to opacity described in CXR Multiple pulmonary nodules noted on CT chest - follow up as outpatient (6) Insulin-requiring or dependent type II diabetes mellitus: Plan: Hgb A1c 5.8 Lantus/Novolog while hospitalized (7) PAF (paroxysmal atrial fibrillation): Plan: Rate controlled on metoprolol Anticoagulated with Eliquis - currently on Lovenox bridge due to anticipated procedure Mg and K repleted today, goal Mg>2 and K >4 (8) Chronic hyponatremia: Plan: Due to underlying liver cirrhosis Na+ 131 -> 130 -> 132 Started on 1500 FR on 11/01 (9) History of pulmonary embolism: Plan: Lovenox bridge as above (10) Buttock wound: Plan: Left buttock wound DTI Right buttock stage II Does not appear infected, wound photos reviewed Wound care nurse following (11) Hepatocellular carcinoma: Plan: Hx of HCC s/p tumor ablation in 2019, last chemo in 2022 - discontinued due to poor tolerance, patient was previously on hospice for about 3 months however stabilized CTA showed multiple liver lesions, last liver MRI in [address] Cordell Guzman Discussed with , recommend outpatient follow up with Dr. Guzman for further discussion regarding additional imaging (12) Alcoholic cirrhosis: Plan: BL pleural effusions as above, does not appear encephalopathic Continue Lasix/Spironolactone, lactulose DVT PROPHYLAXIS Therapeutic dose Lovenox as above Dispo: Anticipate d/c back to [facility] once medically stable, tentative plans for left TMA on Monday 11/[address] Bao Romano spent a total of 45 minutes coordinating, documenting, and providing care for this patient excluding time spent in the performance of separately billed services or time spent by another provider/QHP. Admission and Anticipated Discharge Date Admission Date: October 30, 2024 Subjective Patient seen resting comfortably in hospital bed. No acute events overnight per patient and nursing. Podiatry saw early in AM. Waffle boots are in place with heel tent. No F/C, CP, SOB. Review of Systems Review of Systems: At least ten systems reviewed and negative except as noted in the HPI. Physical Exam Physical Exam: Gen: WD/WN, NAD, resting in bed comfortably, pleasant, limited insight HEENT: Normocephalic, atraumatic, mucous membranes moist Lung: Diminished R>L Heart: irregular rate& rhythm Abdomen: Soft, NT, ND +BS x 4 Extremities:+L foot with necrotic 2-5th digits, mild surrounding erythema Skin: Warm Results & Data Results & Data Vital Signs (Past 12 Hours) Vital Signs Pulse Resp BP Pulse Ox O2 Del Method 11/04/24 07:42 88 18 143/84 H 97 Room Air Laboratory Results Short CBC 11/04/24 Range/Units 05:45 WBC 10.15 (4.8-10.8) K/ul Hgb 12.1 L (14.0-18.0) g/dl Hct 35.0 L (42.0-52.0) % Plt Count 262 (130-400) K/uL BMP 11/04/24 05:45 Sodium 131 L Potassium 3.6 Chloride 100 Carbon Dioxide 26 BUN 16 Creatinine 0.91 Glucose 125 H Calcium 8.1 L Diagnostic Findings Ankle X-Ray 10/30/24 10:50 EXAM: Radiographs of the Left Ankle 3 Views INDICATION: Nonhealing wounds TECHNIQUE: Frontal, lateral and oblique views of the left ankle. COMPARISON: No relevant prior studies available. FINDINGS: Limitations: None. Bones/joints: Probable old fracture of the distal tibia. No acute fracture. No periosteal reaction or erosion. Soft tissues: There is diffuse mild soft tissue swelling. There is a skin defect plantar to the level of the proximal metatarsal seen on the lateral view. Dense atherosclerotic calcification present. No tracking soft tissue gas. No radiopaque foreign body. IMPRESSION: 1. Mild soft tissue swelling. With plantar midfoot wound. 2. No acute osseous abnormality. ACT 112: N/A Electronically signed by Kenia Bergeron 10-30-2024 11:56 AM Ankle X-Ray 10/30/24 10:50 EXAM: Radiographs of the Right Ankle 3 Views INDICATION: Nonhealing wounds. TECHNIQUE: Frontal, lateral and oblique views of the right ankle. COMPARISON: No relevant prior studies available. FINDINGS: Limitations: None. Bones/joints: Well-corticated ossicle noted adjacent to the tip of the medial malleolus likely related to old fracture. No acute fracture. There is mild smooth undulation in cortical thickening of the lateral aspect of the distal fibula subjacent to the cutaneous erosion. Soft tissues: No abnormality noted. No radiopaque foreign body noted. Vasculature: There is a cutaneous ulcer over the lateral distal fibula. There is no soft tissue gas. Dense atherosclerotic calcifications present. IMPRESSION: Cutaneous ulceration noted over the lateral distal fibula. The underlying cortex is somewhat hypertrophic which may indicate chronic osteomyelitis. No definite acute destructive changes. ACT 112: N/A Electronically signed by Kenia Bergeron 10-30-2024 11:49 AM Foot X-Ray 10/30/24 10:50 EXAM: Radiographs of the Left Foot Complete 3 Views INDICATION: Nonhealing wounds TECHNIQUE: Frontal, lateral and oblique views of the left foot. COMPARISON: No relevant prior studies available. FINDINGS: Bones/joints: The bones are demineralized. There is mild joint space narrowing. There is suboptimal assessment of the fourth proximal phalanx which appears somewhat angulated. No visible periosteal reaction. Soft tissues: There is a cutaneous wound seen on the lateral view plantar to the proximal metatarsals. No tracking gas. Dense atherosclerosis. Diffuse soft tissue swelling. IMPRESSION: 1. Plantar midfoot ulcer. 2. Suboptimal assessment of the fourth proximal phalanx which could be fractured or eroded. Correlate clinically. ACT 112: N/A Electronically signed by Kenia Bergeron 10-30-2024 11:53 AM Foot X-Ray 10/30/24 10:50 EXAM: Radiographs of the Right Foot Complete 3 Views INDICATION: Nonhealing wounds. TECHNIQUE: Frontal, lateral and oblique views of the right foot. COMPARISON: No relevant prior studies available. 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 The bones are generally demineralized. There is mild narrowing of the joints. No erosion or fracture. Soft tissues: Mild generalized soft tissue swelling. Dense atherosclerotic calcification noted. No radiopaque foreign body identified. No tracking gas. IMPRESSION: Soft tissue swelling. Chronic changes of the osseous structures. No acute abnormality. ACT 112: N/A Electronically signed by Kenia Bergeron 10-30-2024 11:55 AM Chest X-Ray 10/30/24 22:57 EXAM: XR chest 1V portable CLINICAL HISTORY: Cough. TECHNIQUE: An X-ray image of the chest is obtained in AP projection. COMPARISON: No prior studies are available for comparison. FINDINGS: Pulmonary Parenchyma: Hilar and perihilar congestion. Inhomogeneous opacification with nodular opacities identified in the right mid-lower and left lower zone. Obliteration of the right costophrenic angle. Blunting of the left costophrenic angle is seen. Heart and Mediastinum: Heart size is enlarged. No mediastinal widening or masses. No hilar or mediastinal lymphadenopathy. Bony Thorax: Bony thorax appears intact without fractures or deformities. Osteoarthritic changes at the right glenohumeral joint. Degenerative changes are seen in the spine. Soft Tissues: Soft tissues overlying the chest wall are unremarkable. IMPRESSION: 1. The above-described imaging appearances are suggestive of congestive changes with bilateral pleural effusion and underlying consolidation/collapse. Needs clinical correlation and follow-up. 2. Cardiomegaly. Electronically signed by Vamshi Samson 10-31-2024 01:17 AM Duplex Scan Lower Extremity Artery 10/31/24 09:12 US arterial duplex LE LT CLINICAL HISTORY: necrotic foot COMPARISON STUDY: No previous studies for comparison. FINDINGS: There was triphasic flow within the left common femoral artery. Peak velocities measured 87 cm/s. There was triphasic flow within the left profunda artery. There is triphasic flow within the left superficial femoral artery. Peak systolic velocities measured 78 cm/s. There was biphasic flow within the left popliteal artery. The peak systolic velocities measured 57 cm/s. There is mixed monophasic and biphasic flow within the posterior tibial with a peak systolic velocity of 79 cm/s. There was monophasic flow within the left anterior tibial, with a peak systolic velocity of 67 cm/s. There is monophasic flow within the left peroneal artery which was poorly visualized. There are areas of possible peroneal artery occlusion. The systolic velocity was 42 cm/s. There is monophasic dorsalis pedis systolic velocity 40 cm/s. IMPRESSION: 1. No evidence of stenosis within the common femoral superficial femoral or popliteal arteries 2. Poor visualization of the calf vessels. Segmental occlusions of the peroneal artery cannot be excluded. ACT 112: Negative or not required by law. Electronically signed by: Sumeet Stevens M.D. 10/31/2024 12:12 PM Aorta w/Runoff CTA 11/01/24 13:12 CT ang AA runof w inc giorgio clarke CLINICAL HISTORY: left foot gangrene, assess arterial disease burden COMPARISON STUDY: Arterial duplex study dated 10/31/2024 FINDINGS: Patient was scanned in a dynamic helical fashion during intravenous administration of 120 cc of Optiray 320. Visualized portions the lung bases reveal bilateral pleural effusions with presumed bibasilar atelectatic change. The liver has a cirrhotic morphology. There are innumerable hypervascular hepatic nodules. There is milk of calcium within the gallbladder. There is no evidence of abdominal aortic aneurysm. There is no evidence of hemodynamically significant celiac or superior mesenteric artery proximal stenosis There is a 50% diameter stenosis involving the inferior mesenteric artery origin. Atheromatous plaque is visualized at the origin of the renal arteries but a hemodynamic significant stenosis is not felt to be present. There is no evidence of common iliac artery stenosis. There is no evidence of external iliac artery stenosis. There is no evidence of hemodynamically significant common femoral artery stenosis. On the right, there are mild to moderate atheromatous changes within the right superficial femoral artery. There is no evidence of hemodynamic significant stenosis. Moderate atheromatous changes are present within the right popliteal artery without evidence of a hemodynamically significant stenosis. There are multifocal right peroneal artery occlusions. There are multifocal right anterior tibial and posterior tibial artery occlusions. On the left there are mild to moderate atheromatous changes within the superficial femoral artery without evidence of a hemodynamically significant stenosis. There is mild to moderate atheromatous change within the left popliteal without evidence of hemodynamic significant stenosis. There are multifocal occlusions involving the left anterior tibial and posterior tibial artery. The peroneal artery demonstrates multifocal stenoses but appears to be patent to the ankle. IMPRESSION: 1. No evidence of hemodynamically significant aortic, celiac, superior mesenteric, or renal artery stenosis 2. 50% stenosis of the inferior mesenteric artery origin 3. No evidence of hemodynamically significant common iliac, external iliac, common femoral, superficial femoral, or popliteal arteries. 4. Severe bilateral trifurcation lower extremity arterial disease with multifocal right anterior tibial, posterior tibial, and peroneal artery occlusions. On the left there are multifocal anterior tibial and posterior artery occlusions. The left peroneal artery contains multiple sclerotic lesions but appears patent to the ankle 5. Bilateral pleural effusions 6. Cirrhotic morphology of the liver with innumerable hypervascular hepatic nodules. Clinical correlation and possible MRI follow-up is recommended. ACT 112: Negative or not required by law. Electronically signed by: Sumeet Stevens M.D. 11/01/2024 4:40 PM Chest X-Ray 11/01/24 13:40 XR chest 1V portable HISTORY: 84 years-old Male CHF acute shortness of breath COMPARISON: 10/31/2024 TECHNIQUE: AP view the chest FINDINGS: Cardiac silhouette is enlarged. Pulmonary vascular congestion with interstitial coarsening. Unchanged layering pleural effusions, right greater than left with bibasilar opacities. Right hilar 3.9 cm nodular focus is again seen. 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 Cardiomegaly with interstitial pulmonary edema. 2. Unchanged right greater than left layering pleural effusions with bibasilar opacities. 3. 3.9 cm right hilar nodular focus is likely secondary to summation density associated with pulmonary vasculature. A precautionary nonemergent follow-up chest CT may be considered in order to exclude adenopathy versus pulmonary lesion. ACT 112: Negative or not required by law. The above report was generated using voice recognition software. It may contain grammatical, syntax or spelling errors. Electronically signed by: Joss Juarez M.D. 11/01/2024 3:[address] 11/02/24 08:00 CT SCAN OF THE CHEST WITHOUT IV CONTRAST CLINICAL HISTORY: Abnormal chest x-ray. Right hilar density. COMPARISON STUDY: Chest x-ray dated 11/01/2024. CT angiogram of the abdomen dated 11/01/2024. TECHNIQUE: CT scan of the thorax was performed from the thoracic inlet to the upper abdomen. Images are reviewed in the axial, sagittal, and coronal planes. IV contrast was not administered for this examination as per the referring clinician. A dose lowering technique was utilized adhering to the principles of ALARA. CT DOSE: 1068.51 mGy.cm FINDINGS: Thyroid: Normal in size and heterogeneous in attenuation. Thoracic aorta: There is atherosclerotic calcification of the thoracic aorta, which is normal in caliber and demonstrates standard 3-vessel arch anatomy. Heart: The heart is enlargement noting trace pericardial effusion. The coronary arteries and mitral annulus are densely calcified. There is enlargement of the main pulmonary arteries suggesting pulmonary artery hypertension. Lungs and pleural spaces: There are small left and moderate right pleural effusions with dependent consolidation. Curvilinear opacities in the right middle and right lower lobes is typical for round atelectasis. There are scattered calcified granulomas. The trachea and central airways are clear. A 6 lm right middle lobe nodule is seen on image #138. An 11 mm groundglass opacity is seen in the left upper lobe on image #61. Mediastinum: A precarinal node measures 10 mm short axis. Additional subcentimeter mediastinal nodes are noted. These are pathologically indeterminate and may be reactive. Marjorie: Not well assessed without IV contrast. Axillae: There is no axillary lymphadenopathy. Upper abdomen: The liver is cirrhotic in morphology and heterogeneous in attenuation with nodularity of the surface contour. There are numerous low- attenuation hepatic nodules, likely corresponding to numerous hypervascular lesions seen on the recent abdominal CT. The gallbladder is distended and contains calcified gallstones. There is a 2.3 cm pathologically indeterminate right adrenal nodule. Residual excreted contrast is seen within the renal collecting systems. There are perigastric varices. Skeletal structures: The skeletal structures are osteopenic. Degenerative change and hyperkyphosis is noted in the thoracic spine. No lytic or blastic bony lesions are seen. Advanced arthritic change is seen in the shoulders. Calcified joint bodies are noted on the right. There are chronic/healed bilateral rib fractures. IMPRESSION: 1. Cardiomegaly. 2. Small left and moderate right pleural effusions with dependent consolidation. 3. There are foci of round atelectasis in the right middle and right lower lobes. This may correspond to the nodular opacity suggested on the 11/01/2024 chest x-ray. 4. The liver is cirrhotic in morphology and heterogeneous attenuation. 5. There are numerous low-attenuation hepatic nodules which were hypervascular on yesterday's CT angiogram. Although indeterminate, given cirrhotic morphology multifocal hepatocellular carcinoma is to be excluded. Correlate with serum AFP levels. 6. Gallbladder is distended and contains numerous gallstones. There is no clear CT evidence of acute cholecystitis and acquired images. 7. There is a 6 mm right middle lobe pulmonary nodule and a possible 11 mm groundglass lesion in the left upper lobe. Follow-up is recommended as per the Fleischner criteria. See below. 8. Additional findings as above. Please refer to below summary of Fleischner criteria recommendations for follow- up of incidental CT nodules (Marcie Guaman, Guidelines for management of small pulmonary nodules detected on CT scans: A statement from the Fleischner Society, Radiology 237: [phone].) SOLID NODULES Solitary nodule size: <6 mm * low risk patients: no follow-up needed * high risk patients: optional CT at 12 months Solitary nodule size: 6-8 mm * low risk patients: follow-up at 6-12 months, then consider further follow-up at 18-24 months * high risk patients: initial follow-up CT at 6-12 months and then at 18-24 months if no change Solitary nodule size: >8 mm * either low or high risk patients - consider follow-up CT at 3 months, and/or CT-PET, and/or biopsy Multiple nodules size: <6 mm * low risk patients: no routine follow-up * high risk patients: optional CT at 12 months Multiple nodules size: 6-8 mm * low risk patients: follow-up at 3-6 months, then consider further follow-up at 18-24 months * high risk patients: follow-up at 3-6 months, then at 18-24 months if no ch ilene Multiple nodules size: >8 mm * low risk patients: follow-up at 3-6 months, then consider further follow-up at 18-24 months * high risk patients: follow-up at 3-6 months, then at 18-24 months if no change Note: newly detected indeterminate nodule in persons 35 years of age or older. * low risk patients: minimal or absent history of smoking and/or other known risk factors * high risk patients: history of smoking or of other known risk factors (e.g. first degree relative with lung cancer, or exposure to asbestos, radon, uranium) * if a nodule up to 8 mm is partly solid or is ground glass further follow-up is required after 24 months to exclude possible slow growing adenocarcinoma (JAQUELINE) SUBSOLID NODULES Solitary pure ground-glass nodule * nodule size <6 mm - no CT follow-up required * nodule size >=6 mm - follow-up CT at 6-12 months, then every 2 years until 5 years Solitary part-solid nodule * nodule size <6 mm - no CT follow-up required * nodule size >=6 mm - follow-up CT at 3-6 months. If unchanged, and solid component remains <6 mm, then annual follow-up for 5 years Multiple subsolid nodules * nodule size <6 mm - follow-up CT at 3-6 months, consider further follow-up at 2 and 4 years if stable * nodule size >=6 mm - follow-up CT at 3-6 months, subsequent management based on the most suspicious nodule(s) ACT 112: Negative or not required by law. Electronically signed by: Juan J Main M.D. 11/02/2024 2:46 PM Chest Ultrasound 11/02/24 11:51 LIMITED CHEST ULTRASOUND CLINICAL HISTORY: Thoracentesis requested COMPARISON STUDY: Chest CT dated 11/02/2024 FINDINGS: Ultrasound imaging of the right posterior thorax was performed. A small right pleural effusion was identified, estimated at 500 mL. After discussion with patient, he declined the thoracentesis at this time. Referring provider will be notified. IMPRESSION: Small right pleural effusion as above. Patient declined thoracentesis at this time. Performed, dictated, and signed by Johnny Ferrell PA-C; to be co-signed by Dr. Juan J Main. Electronically signed by: Juan J Main M.D. 11/02/2024 2:05 PM
[2024-11-04] MEDS: MAGNESIUM SULFATE / D5W 1 GM/100 ML BAG IV ONE (16:01)
[2024-11-04] MEDS: POTASSIUM CHLORIDE CRTAB 20 MEQ TABCR PO STA (16:01)
[2024-11-05 07:07] LABS: Hematocrit (blood only) 36.7 % (42.0-52.0); Hemoglobin 12.2 g/dl (14.0-18.0); Mean Corpuscular Hemoglobin 31.3 pg (25.0-34.0); Mean Corpuscular Volume 94.1 fL (80.0-100.0); Platelet Count 227 K/uL (130-400); RDW Standard Deviation 48.4 fL (36.4-46.3); Red Blood Count 3.90 M/uL (4.70-6.10); White Blood Count 9.41 K/ul (4.8-10.8)
[2024-11-05 07:39] LABS: Anion Gap 6.0 (3-11); Blood Urea Nitrogen 18.0 mg/dl (6-23); Calcium 8.5 mg/dl (8.6-10.3); Carbon Dioxide 26.0 mmol/L (21-32); Chloride 100.0 mmol/L (98-107); Creatinine Clr Calc Pharmacy 83.8 ml/min; Glucose 126.0 mg/dl (70-99(Fasting)); Magnesium 1.9 mg/dl (1.7-2.4); Potassium 4.0 mmol/L (3.5-5.1); Sodium 132.0 mmol/L (136-145)
--- NOTE | 2024-11-05 07:47 | Hospitalist Progress Note ---
<Statement entered by Sammy Gore, DO - 11/05/24 13:43> I was available to ARLINE Discussed plan with arline, agree Date of Service November 05, 2024 Assessment & Plan (1) Tissue necrosis with gangrene in peripheral vascular disease: Plan: Patient presenting from [facility] for evaluation of necrotic left toes. Has been at [facility] since 08/25/24 after an admission to [facility] for right knee septic arthritis. Cultures grew group B strep and patient completed Ceftriaxone on 09/13/24. Patient also with history of PVD - follows with [facility] vascular - S/P R ADRIAN & Peroneal angioplasties and right 5th toe amp on 04/09/[address] Mina for severe PAD & gangrene right 5th toe. S/P R Peroneal angioplasty, right 5th MTH amputation, right 4th toe proximal metatarsal amputation on 07/05/[address] Mina for PAD, OM of 5th metatarsal and necrosis of 4th right toe. Podiatry and vascular consults Continue empiric IV Zosyn and IV Vanco Blood cultures NGTD, Nasal MRSA +, No open areas or drainage to culture Does not appear septic Needs Left TMA s/p CTA w/ runoff - no indication for intervention per vascular however low threshold to reconsult for concerns of healing or perfusion of TMA site Given BL pleural effusions, recommend holding on OR for today and continue diuresis and obtain pre op cardiac evaluation Seen by Dr. Oconnell, who is planning for OR on Monday 11/06. Hold Lovenox after Wednesday 9/ PM dose. (2) Wound of left lower extremity: Plan: Wounds noted to left lateral ankle and left lateral/posterior calf Podiatry following w/ wound care recs - wound culture growing pansensitive proteus, plan to continue empiric Vanco and Zosyn until operative cultures obtained on Wednesday (3) Bilateral pleural effusion: (4) Acute heart failure with preserved ejection fraction (HFpEF): Plan: CXR on admission suggestive of congestive changes with bilateral pleural effusions Repeat CXR on 11/01 shows Cardiomegaly with interstitial pulmonary edema. Unchanged right greater than left layering pleural effusions with bibasilar opacities Started IV Lasix 40mg IV daily on 11/01 Currently on room air, denies shortness of breath Attempted right sided thoracentesis mostly for diagnostic purposes given history of hepatocellular carcinoma and liver lesions noted on CTA, however patient declined procedure Note history of prior right pleural effusion s/p thoracentesis in 2019 with cytology being negative at that time Underlying cirrhosis likely contributing as well Echo 07/2024 from [facility]: EF 65%, no significant valvular disease Weight on admission 102.1kg -> 98.5 kg Knott placed for I/Os, daily weights, low Na+ diet, 1500ml FR Cardio consult for pre op eval - ECG unchanged from previous, moderate perioperative cardiac risk - Resting echo 11/03 with preserved EF 65-70%, mild concentric LVH, AV sclerosis without significant stenosis - Continue beta sal, resume Eliquis post op when able, add high intensity statin post-operatively, continue spironolactone and 40mg IV lasix daily for now (5) Pulmonary lesion, right: Plan: CXR shows 3.9 cm right hilar nodular focus is likely secondary to summation density associated with pulmonary vasculature CT chest shows foci of round atelectasis in RML and RLL that may correspond to opacity described in CXR Multiple pulmonary nodules noted on CT chest - follow up as outpatient (6) Insulin-requiring or dependent type II diabetes mellitus: Plan: Hgb A1c 5.8 Lantus/Novolog while hospitalized (7) PAF (paroxysmal atrial fibrillation): Plan: Rate controlled on metoprolol Anticoagulated with Eliquis - currently on Lovenox bridge due to anticipated procedure Mg and K repleted today, goal Mg>2 and K >4 (8) Chronic hyponatremia: Plan: Due to underlying liver cirrhosis Na+ 131 -> 130 -> 132 Started on 1500 FR on 11/01 (9) History of pulmonary embolism: Plan: Lovenox bridge as above (10) Buttock wound: Plan: Left buttock wound DTI Right buttock stage II Does not appear infected, wound photos reviewed Wound care nurse following (11) Hepatocellular carcinoma: Plan: Hx of HCC s/p tumor ablation in 2019, last chemo in 2022 - discontinued due to poor tolerance, patient was previously on hospice for about 3 months however stabilized CTA showed multiple liver lesions, last liver MRI in [address] Cordell Guzman Discussed with , recommend outpatient follow up with Dr. Guzman for further discussion regarding additional imaging (12) Alcoholic cirrhosis: Plan: BL pleural effusions as above, does not appear encephalopathic Continue Lasix/Spironolactone, lactulose DVT PROPHYLAXIS: Therapeutic dose Lovenox as above (holding this evening for OR tmrw) Dispo: Anticipate d/c back to [facility] once medically stable, plans for left TMA tomorrow, 11/[address] Gore I spent a total of 40 minutes coordinating, documenting, and providing care for this patient excluding time spent in the performance of separately billed services or time spent by another provider/QHP. Admission and Anticipated Discharge Date Admission Date: October 30, 2024 Subjective Patient seen resting comfortably in hospital bed. No acute events overnight per patient and nursing. Waffle boots are in place with heel tent. No F/C, CP, SOB. Remains on room air. Review of Systems Review of Systems: At least ten systems reviewed and negative except as noted in the HPI. Physical Exam Physical Exam: Gen: WD/WN, NAD, resting in bed comfortably, pleasant, limited insight HEENT: Normocephalic, atraumatic, mucous membranes moist Lung: Diminished R>L Heart: irregular rate& rhythm Abdomen: Soft, NT, ND +BS x 4 Extremities:+L foot with necrotic 2-5th digits, mild surrounding erythema Skin: Warm Results & Data Results & Data Vital Signs (Past 12 Hours) Vital Signs Temp Pulse Resp BP BP Pulse Ox O2 Del Method 11/05/24 07:42 36.6 C 78 17 121/79 96 Room Air 11/04/24 23:30 Room Air 11/04/24 23:08 36.5 C 81 18 123/76 97 Room Air 11/04/24 20:30 Room Air Laboratory Results Short CBC 11/05/24 Range/Units 06:53 WBC 9.41 (4.8-10.8) K/ul Hgb 12.2 L (14.0-18.0) g/dl Hct 36.7 L (42.0-52.0) % Plt Count 227 (130-400) K/uL BMP 11/05/24 06:53 Sodium 132 L Potassium 4.0 Chloride 100 Carbon Dioxide 26 BUN 18 Creatinine 0.80 Glucose 126 H Calcium 8.5 L Diagnostic Findings Ankle X-Ray 10/30/24 10:50 EXAM: Radiographs of the Left Ankle 3 Views INDICATION: Nonhealing wounds TECHNIQUE: Frontal, lateral and oblique views of the left ankle. COMPARISON: No relevant prior studies available. FINDINGS: Limitations: None. Bones/joints: Probable old fracture of the distal tibia. No acute fracture. No periosteal reaction or erosion. Soft tissues: There is diffuse mild soft tissue swelling. There is a skin defect plantar to the level of the proximal metatarsal seen on the lateral view. Dense atherosclerotic calcification present. No tracking soft tissue gas. No radiopaque foreign body. IMPRESSION: 1. Mild soft tissue swelling. With plantar midfoot wound. 2. No acute osseous abnormality. ACT 112: N/A Electronically signed by Kenia Bergeron 10-30-2024 11:56 AM Ankle X-Ray 10/30/24 10:50 EXAM: Radiographs of the Right Ankle 3 Views INDICATION: Nonhealing wounds. TECHNIQUE: Frontal, lateral and oblique views of the right ankle. COMPARISON: No relevant prior studies available. FINDINGS: Limitations: None. Bones/joints: Well-corticated ossicle noted adjacent to the tip of the medial malleolus likely related to old fracture. No acute fracture. There is mild smooth undulation in cortical thickening of the lateral aspect of the distal fibula subjacent to the cutaneous erosion. Soft tissues: No abnormality noted. No radiopaque foreign body noted. Vasculature: There is a cutaneous ulcer over the lateral distal fibula. There is no soft tissue gas. Dense atherosclerotic calcifications present. IMPRESSION: Cutaneous ulceration noted over the lateral distal fibula. The underlying cortex is somewhat hypertrophic which may indicate chronic osteomyelitis. No definite acute destructive changes. ACT 112: N/A Electronically signed by Kenia Bergeron 10-30-2024 11:49 AM Foot X-Ray 10/30/24 10:50 EXAM: Radiographs of the Left Foot Complete 3 Views INDICATION: Nonhealing wounds TECHNIQUE: Frontal, lateral and oblique views of the left foot. COMPARISON: No relevant prior studies available. FINDINGS: Bones/joints: The bones are demineralized. There is mild joint space narrowing. There is suboptimal assessment of the fourth proximal phalanx which appears somewhat angulated. No visible periosteal reaction. Soft tissues: There is a cutaneous wound seen on the lateral view plantar to the proximal metatarsals. No tracking gas. Dense atherosclerosis. Diffuse soft tissue swelling. IMPRESSION: 1. Plantar midfoot ulcer. 2. Suboptimal assessment of the fourth proximal phalanx which could be fractured or eroded. Correlate clinically. ACT 112: N/A Electronically signed by Kenia Bergeron 10-30-2024 11:53 AM Foot X-Ray 10/30/24 10:50 EXAM: Radiographs of the Right Foot Complete 3 Views INDICATION: Nonhealing wounds. TECHNIQUE: Frontal, lateral and oblique views of the right foot. COMPARISON: No relevant prior studies available. 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 The bones are generally demineralized. There is mild narrowing of the joints. No erosion or fracture. Soft tissues: Mild generalized soft tissue swelling. Dense atherosclerotic calcification noted. No radiopaque foreign body identified. No tracking gas. IMPRESSION: Soft tissue swelling. Chronic changes of the osseous structures. No acute abnormality. ACT 112: N/A Electronically signed by Kenia Bergeron 10-30-2024 11:55 AM Chest X-Ray 10/30/24 22:57 EXAM: XR chest 1V portable CLINICAL HISTORY: Cough. TECHNIQUE: An X-ray image of the chest is obtained in AP projection. COMPARISON: No prior studies are available for comparison. FINDINGS: Pulmonary Parenchyma: Hilar and perihilar congestion. Inhomogeneous opacification with nodular opacities identified in the right mid-lower and left lower zone. Obliteration of the right costophrenic angle. Blunting of the left costophrenic angle is seen. Heart and Mediastinum: Heart size is enlarged. No mediastinal widening or masses. No hilar or mediastinal lymphadenopathy. Bony Thorax: Bony thorax appears intact without fractures or deformities. Osteoarthritic changes at the right glenohumeral joint. Degenerative changes are seen in the spine. Soft Tissues: Soft tissues overlying the chest wall are unremarkable. IMPRESSION: 1. The above-described imaging appearances are suggestive of congestive changes with bilateral pleural effusion and underlying consolidation/collapse. Needs clinical correlation and follow-up. 2. Cardiomegaly. Electronically signed by Vamshi Samson 10-31-2024 01:17 AM Duplex Scan Lower Extremity Artery 10/31/24 09:12 US arterial duplex LE LT CLINICAL HISTORY: necrotic foot COMPARISON STUDY: No previous studies for comparison. FINDINGS: There was triphasic flow within the left common femoral artery. Peak velocities measured 87 cm/s. There was triphasic flow within the left profunda artery. There is triphasic flow within the left superficial femoral artery. Peak systolic velocities measured 78 cm/s. There was biphasic flow within the left popliteal artery. The peak systolic velocities measured 57 cm/s. There is mixed monophasic and biphasic flow within the posterior tibial with a peak systolic velocity of 79 cm/s. There was monophasic flow within the left anterior tibial, with a peak systolic velocity of 67 cm/s. There is monophasic flow within the left peroneal artery which was poorly visualized. There are areas of possible peroneal artery occlusion. The systolic velocity was 42 cm/s. There is monophasic dorsalis pedis systolic velocity 40 cm/s. IMPRESSION: 1. No evidence of stenosis within the common femoral superficial femoral or popliteal arteries 2. Poor visualization of the calf vessels. Segmental occlusions of the peroneal artery cannot be excluded. ACT 112: Negative or not required by law. Electronically signed by: Sumeet Stevens M.D. 10/31/2024 12:12 PM Aorta w/Runoff CTA 11/01/24 13:12 CT ang AA runof w inc giorgio clarke CLINICAL HISTORY: left foot gangrene, assess arterial disease burden COMPARISON STUDY: Arterial duplex study dated 10/31/2024 FINDINGS: Patient was scanned in a dynamic helical fashion during intravenous administration of 120 cc of Optiray 320. Visualized portions the lung bases reveal bilateral pleural effusions with presumed bibasilar atelectatic change. The liver has a cirrhotic morphology. There are innumerable hypervascular hepatic nodules. There is milk of calcium within the gallbladder. There is no evidence of abdominal aortic aneurysm. There is no evidence of hemodynamically significant celiac or superior mesenteric artery proximal stenosis There is a 50% diameter stenosis involving the inferior mesenteric artery origin. Atheromatous plaque is visualized at the origin of the renal arteries but a hemodynamic significant stenosis is not felt to be present. There is no evidence of common iliac artery stenosis. There is no evidence of external iliac artery stenosis. There is no evidence of hemodynamically significant common femoral artery stenosis. On the right, there are mild to moderate atheromatous changes within the right superficial femoral artery. There is no evidence of hemodynamic significant stenosis. Moderate atheromatous changes are present within the right popliteal artery without evidence of a hemodynamically significant stenosis. There are multifocal right peroneal artery occlusions. There are multifocal right anterior tibial and posterior tibial artery occlusions. On the left there are mild to moderate atheromatous changes within the superficial femoral artery without evidence of a hemodynamically significant stenosis. There is mild to moderate atheromatous change within the left popliteal without evidence of hemodynamic significant stenosis. There are multifocal occlusions involving the left anterior tibial and posterior tibial artery. The peroneal artery demonstrates multifocal stenoses but appears to be patent to the ankle. IMPRESSION: 1. No evidence of hemodynamically significant aortic, celiac, superior mesenteric, or renal artery stenosis 2. 50% stenosis of the inferior mesenteric artery origin 3. No evidence of hemodynamically significant common iliac, external iliac, common femoral, superficial femoral, or popliteal arteries. 4. Severe bilateral trifurcation lower extremity arterial disease with multifocal right anterior tibial, posterior tibial, and peroneal artery occlusions. On the left there are multifocal anterior tibial and posterior artery occlusions. The left peroneal artery contains multiple sclerotic lesions but appears patent to the ankle 5. Bilateral pleural effusions 6. Cirrhotic morphology of the liver with innumerable hypervascular hepatic nodules. Clinical correlation and possible MRI follow-up is recommended. ACT 112: Negative or not required by law. Electronically signed by: Sumeet Stevens M.D. 11/01/2024 4:40 PM Chest X-Ray 11/01/24 13:40 XR chest 1V portable HISTORY: 84 years-old Male CHF acute shortness of breath COMPARISON: 10/31/2024 TECHNIQUE: AP view the chest FINDINGS: Cardiac silhouette is enlarged. Pulmonary vascular congestion with interstitial coarsening. Unchanged layering pleural effusions, right greater than left with bibasilar opacities. Right hilar 3.9 cm nodular focus is again seen. 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 Cardiomegaly with interstitial pulmonary edema. 2. Unchanged right greater than left layering pleural effusions with bibasilar opacities. 3. 3.9 cm right hilar nodular focus is likely secondary to summation density associated with pulmonary vasculature. A precautionary nonemergent follow-up chest CT may be considered in order to exclude adenopathy versus pulmonary lesion. ACT 112: Negative or not required by law. The above report was generated using voice recognition software. It may contain grammatical, syntax or spelling errors. Electronically signed by: Joss Juarez M.D. 11/01/2024 3:[address] 11/02/24 08:00 CT SCAN OF THE CHEST WITHOUT IV CONTRAST CLINICAL HISTORY: Abnormal chest x-ray. Right hilar density. COMPARISON STUDY: Chest x-ray dated 11/01/2024. CT angiogram of the abdomen dated 11/01/2024. TECHNIQUE: CT scan of the thorax was performed from the thoracic inlet to the upper abdomen. Images are reviewed in the axial, sagittal, and coronal planes. IV contrast was not administered for this examination as per the referring clinician. A dose lowering technique was utilized adhering to the principles of ALARA. CT DOSE: 1068.51 mGy.cm FINDINGS: Thyroid: Normal in size and heterogeneous in attenuation. Thoracic aorta: There is atherosclerotic calcification of the thoracic aorta, which is normal in caliber and demonstrates standard 3-vessel arch anatomy. Heart: The heart is enlargement noting trace pericardial effusion. The coronary arteries and mitral annulus are densely calcified. There is enlargement of the main pulmonary arteries suggesting pulmonary artery hypertension. Lungs and pleural spaces: There are small left and moderate right pleural effusions with dependent consolidation. Curvilinear opacities in the right middle and right lower lobes is typical for round atelectasis. There are scattered calcified granulomas. The trachea and central airways are clear. A 6 lm right middle lobe nodule is seen on image #138. An 11 mm groundglass opacity is seen in the left upper lobe on image #61. Mediastinum: A precarinal node measures 10 mm short axis. Additional subcentimeter mediastinal nodes are noted. These are pathologically indeterminate and may be reactive. Marjorie: Not well assessed without IV contrast. Axillae: There is no axillary lymphadenopathy. Upper abdomen: The liver is cirrhotic in morphology and heterogeneous in attenuation with nodularity of the surface contour. There are numerous low- attenuation hepatic nodules, likely corresponding to numerous hypervascular lesions seen on the recent abdominal CT. The gallbladder is distended and contains calcified gallstones. There is a 2.3 cm pathologically indeterminate right adrenal nodule. Residual excreted contrast is seen within the renal collecting systems. There are perigastric varices. Skeletal structures: The skeletal structures are osteopenic. Degenerative change and hyperkyphosis is noted in the thoracic spine. No lytic or blastic bony lesions are seen. Advanced arthritic change is seen in the shoulders. Calcified joint bodies are noted on the right. There are chronic/healed bilateral rib fractures. IMPRESSION: 1. Cardiomegaly. 2. Small left and moderate right pleural effusions with dependent consolidation. 3. There are foci of round atelectasis in the right middle and right lower lobes. This may correspond to the nodular opacity suggested on the 11/01/2024 chest x-ray. 4. The liver is cirrhotic in morphology and heterogeneous attenuation. 5. There are numerous low-attenuation hepatic nodules which were hypervascular on yesterday's CT angiogram. Although indeterminate, given cirrhotic morphology multifocal hepatocellular carcinoma is to be excluded. Correlate with serum AFP levels. 6. Gallbladder is distended and contains numerous gallstones. There is no clear CT evidence of acute cholecystitis and acquired images. 7. There is a 6 mm right middle lobe pulmonary nodule and a possible 11 mm groundglass lesion in the left upper lobe. Follow-up is recommended as per the Fleischner criteria. See below. 8. Additional findings as above. Please refer to below summary of Fleischner criteria recommendations for follow- up of incidental CT nodules (Marcie Guaman, Guidelines for management of small pulmonary nodules detected on CT scans: A statement from the Fleischner Society, Radiology 237: [phone].) SOLID NODULES Solitary nodule size: <6 mm * low risk patients: no follow-up needed * high risk patients: optional CT at 12 months Solitary nodule size: 6-8 mm * low risk patients: follow-up at 6-12 months, then consider further follow-up at 18-24 months * high risk patients: initial follow-up CT at 6-12 months and then at 18-24 months if no change Solitary nodule size: >8 mm * either low or high risk patients - consider follow-up CT at 3 months, and/or CT-PET, and/or biopsy Multiple nodules size: <6 mm * low risk patients: no routine follow-up * high risk patients: optional CT at 12 months Multiple nodules size: 6-8 mm * low risk patients: follow-up at 3-6 months, then consider further follow-up at 18-24 months * high risk patients: follow-up at 3-6 months, then at 18-24 months if no change Multiple nodules size: >8 mm * low risk patients: follow-up at 3-6 months, then consider further follow-up at 18-24 months * high risk patients: follow-up at 3-6 months, then at 18-24 months if no change Note: newly detected indeterminate nodule in persons 35 years of age or older. * low risk patients: minimal or absent history of smoking and/or other known risk factors * high risk patients: history of smoking or of other known risk factors (e.g. first degree relative with lung cancer, or exposure to asbestos, radon, uranium) * if a nodule up to 8 mm is partly solid or is ground glass further follow-up is required after 24 months to exclude possible slow growing adenocarcinoma (JAQUELINE) SUBSOLID NODULES Solitary pure ground-glass nodule * nodule size <6 mm - no CT follow-up required * nodule size >=6 mm - follow-up CT at 6-12 months, then every 2 years until 5 years Solitary part-solid nodule * nodule size <6 mm - no CT follow-up required * nodule size >=6 mm - follow-up CT at 3-6 months. If unchanged, and solid component remains <6 mm, then annual follow-up for 5 years Multiple subsolid nodules * nodule size <6 mm - follow-up CT at 3-6 months, consider further follow-up at 2 and 4 years if stable * nodule size >=6 mm - follow-up CT at 3-6 months, subsequent management based on the most suspicious nodule(s) ACT 112: Negative or not required by law. Electronically signed by: Juan J Main M.D. 11/02/2024 2:46 PM Chest Ultrasound 11/02/24 11:51 LIMITED CHEST ULTRASOUND CLINICAL HISTORY: Thoracentesis requested COMPARISON STUDY: Chest CT dated 11/02/2024 FINDINGS: Ultrasound imaging of the right posterior thorax was performed. A small right pleural effusion was identified, estimated at 500 mL. After discussion with patient, he declined the thoracentesis at this time. Referring provider will be notified. IMPRESSION: Small right pleural effusion as above. Patient declined thoracentesis at this time. Performed, dictated, and signed by Johnny Ferrell PA-C; to be co-signed by Dr. Juan J Main. Electronically signed by: Juan J Main M.D. 11/02/2024 2:05 PM
[2024-11-05] MEDS: MAGNESIUM OXIDE 400 MG TAB PO SCH (08:51)
[2024-11-05] MEDS: VANCOMYCIN LEVEL ONE (11:56)
--- NOTE | 2024-11-05 12:47 | Pharmacy Report ---
Pharmacy PK ABX Note - Date of Service November 05, 2024 - Assessment and Plan Assessment 11/05 * Random level 18.3 mcg/mL which suggests therapeutic dosing, will continue with current dose * Plan for amputation on 11/06. Confirm vancomycin duration- current stop date 11/06 @2359. 11/03 * Will scale back slightly on vancomycin dosing as AUC/JAIDEN predicted to exceed 600 with ongoing dosing on this regimen. Will decrease to 750 mg iv q 12 hours and recheck level again in 2 days 11/02 * Vancomycin level came back today at ~19 mcg/ml - dosing associated with therapeutic AUC/JAIDEN therefore will continue current regimen. Per notes, patient planning for transmetatarsal amputation 11/06 * 84 year old M receiving vancomycin/zosyn for diabetic foot infection. Patient with tissue necrosis/gangrene of left toes hx of PVD. Previous admission at OSH for R knee septic arthritis and completed course of ceftriaxone on 09/13/24. Podiatry and vascular consulted, patient NPO for possible intervention. Blood cultures pending. Plan Vancomycin * Continue 750 mg iv q 12 hours * Additional level to be ordered if vancomycin extended following amputation. Pharmacy will continue to follow and will adjust dose/frequency as necessary. Thank you. Pharmacy has transitioned to AUC monitoring for vancomycin. AUC/JAIDEN is the preferred PK/PD target and is associated with decreased risk of nephrotoxicity compared to traditional trough targets.
[2024-11-06] MEDS: INSULIN ASPART PER UNIT CHARGE SC SCH ×2 (06:08→20:40)
[2024-11-06 07:25] LABS: Hematocrit (blood only) 35.0 % (42.0-52.0); Hemoglobin 12.0 g/dl (14.0-18.0); Mean Corpuscular Hemoglobin 32.2 pg (25.0-34.0); Mean Corpuscular Volume 93.8 fL (80.0-100.0); Platelet Count 236 K/uL (130-400); RDW Standard Deviation 48.2 fL (36.4-46.3); Red Blood Count 3.73 M/uL (4.70-6.10); White Blood Count 8.51 K/ul (4.8-10.8)
[2024-11-06 07:49] LABS: Anion Gap 5.0 (3-11); Blood Urea Nitrogen 16.0 mg/dl (6-23); Calcium 8.5 mg/dl (8.6-10.3); Carbon Dioxide 27.0 mmol/L (21-32); Chloride 100.0 mmol/L (98-107); Creatinine Clr Calc Pharmacy 81.7 ml/min; Glucose 128.0 mg/dl (70-99(Fasting)); Magnesium 1.8 mg/dl (1.7-2.4); Potassium 3.7 mmol/L (3.5-5.1); Sodium 132.0 mmol/L (136-145)
--- NOTE | 2024-11-06 11:06 | Pharmacy Report ---
Pharmacy Glycemic Short Note 2 - Date of Service November 06, 2024 - Glycemic Short BSG Results (Last 24 hours): 11/05/24 11/05/24 11/05/24 11:27 16:27 20:41 Glucose POC Glucose 169 H 139 H 131 H 11/06/24 11/06/24 05:54 06:54 Glucose 128 H POC Glucose 127 H OUTPATIENT ANTIDIABETIC REGIMEN: * Lantus 18 units HS ASSESSMENT: 11/06: * BSGs largely within goal the last 48h: [id number]/dL since yesterday. * NPO at MA for OR today. Continues on IV antibiotics. * Basal discontinued (pt was not receiving/meeting criteria). Continue Novolog 28/12- no change. 11/03 * Patient received total of 7 units of insulin yesterday, all of correctional insulin * Fasting BSG 103 mg/dL - continue same parameters today 10/31 * 84 year old admitted with DM foot infection. Pharmacy consulted for glycemic management. Patient is type 2 diabetic - NPO for possible surgical intervention. Did receive Lantus 18 units HS last evening. Fasting BSG 112 mg/ dL. Blood sugars stable today. Will add a reduced scale for Lantus at HS for ongoing NPO status PLAN FOR INPATIENT GLYCEMIC CONTROL: * Hold outpatient oral diabetes medications * Basal insulin * held * Bolus insulin * NovoLog per scale ACHS or Q6hrs while NPO * Goal Range: Low 110 mg/dL - High 140 mg/dL * Correction Factor: 30 mg/dL/unit * Nutritional / Prandial insulin per carb ratio of 1 unit per 10 grams CHO consumed
[2024-11-06] MEDS ORDERED: ONDANSETRON INJ 2 MG/ML 2 ML VIAL IV PRN (14:16)
[2024-11-06] MEDS ORDERED: ATROPINE SULFATE 0.1 MG/ML 10ML SYR IV PRN ×2 (14:16→14:43)
--- NOTE | 2024-11-06 14:20 | Anesthesiology Consultation ---
Date of Service November 06, 2024 Assessment & Plan Chart Review Chart Review: Acceptable Risk for Surgery and Patient NOT seen in Pre Admission Testing Consults Requested none History Surgery Operation Date: 11/06/24 14:10 Proposed Procedures p Left Foot Transmetatarsal Amputation - Cj Oconnell DPM Height/Weight Height: 5 ft 10 in Weight: 103 kg Allergies Allergy/AdvReac Type Severity Reaction Status Date / Time No Known Allergies Allergy Verified 10/31/24 16:11 Medications Home Medications Medication Instructions Recorded Confirmed Last Taken apixaban 5 mg tablet (Eliquis) 5 mg PO BID 10/30/24 10/31/24 Unknown furosemide 20 mg tablet 20 mg PO DAILY 10/30/24 10/31/24 Unknown insulin glargine 100 unit/mL (3 18 unit subcut HS 10/30/24 10/31/24 Unknown mL) subcutaneous pen (Lantus Solostar U-100 Insulin) lactulose 10 gram/15 mL oral 15 ml PO BID 10/30/24 10/31/24 Unknown solution metoprolol succinate 100 mg 100 mg PO DAILY 10/30/24 10/31/24 Unknown tablet,extended release 24 hr spironolactone 25 mg tablet 12.5 mg PO DAILY 10/30/24 10/31/24 Unknown trazodone 50 mg tablet 50 mg PO HS 10/30/24 11/03/24 Unknown acetaminophen 500 mg tablet 1,000 mg PO TID 10/31/24 10/31/24 Unknown (Tylenol Extra Strength) aspirin 81 mg tablet 81 mg PO DAILY 10/31/24 10/31/24 Unknown sennosides 8.6 mg-docusate sodium 2 tab-cap PO HS 10/31/24 10/31/24 Unknown 50 mg tablet (Senna-S) tramadol 50 mg tablet 50 mg PO Q6H PRN Pain 10/31/24 10/31/24 Unknown Active Medications Generic Name Dose Route Start Last Admin Trade Name Freq PRN Reason Stop Dose Admin Acetaminophen 1,000 mg 10/31/24 21:00 11/06/24 10:29 Acetaminophen 500 Mg Tab PO 11/30/24 20:59 Not Given TID [facility] Aspirin 81 mg 11/01/24 09:00 11/06/24 10:33 Aspirin 81 Mg Ectab PO 12/01/24 08:59 Not Given DAILY [facility] Enoxaparin Sodium 100 mg 10/30/24 21:00 11/05/24 20:39 Enoxaparin 100 Mg/1ml Syr SQ 11/29/24 20:59 Not Given Q12H DARREN Furosemide 40 mg 11/03/24 09:00 11/06/24 10:38 Furosemide 40 Mg/4 Ml Vial IV 12/03/24 08:59 Not Given DAILY DARREN Piperacillin Sod/Tazobactam Sod 4.5 gm in 100 mls @ 25 mls/hr 10/30/24 20:00 11/06/24 12:06 Zosyn IV 11/06/24 19:59 25 mls/hr Q8H DARREN Administration Protocol Vancomycin HCl 750 mg/ Sodium 265 mls @ 200 mls/hr 11/03/24 12:00 11/06/24 12:11 Chloride IV 11/13/24 23:59 200 mls/hr Q12H DARREN Administration Insulin Aspart 0 units 11/06/24 06:00 11/06/24 12:06 Insulin Aspart Per Unit Charge SC 12/06/24 05:59 1 units Q6 DARREN Administration Lactulose 10 gm 10/30/24 21:00 11/06/24 10:38 Lactulose Syrup 20 Gm/30 Ml Udc PO 11/29/24 20:59 Not Given BID DARREN Levalbuterol HCl 1.25 mg 10/30/24 22:57 10/31/24 20:58 Levalbuterol 1.25 Mg/3 Ml Neb NEB 11/29/24 22:56 1.25 mg Q4H PRN Administration Shortness Of Breath Or Wheezing Magnesium Oxide 400 mg 11/05/24 09:00 11/06/24 10:39 Magnesium Oxide 400 Mg Tab PO 12/05/24 08:59 Not Given QAM DARREN Melatonin 3 mg 10/30/24 18:30 11/05/24 20:36 Melatonin 3 Mg Tab PO 11/29/24 18:29 3 mg HS PRN Administration Insomnia Metoprolol Succinate 100 mg 10/31/24 09:00 11/06/24 10:39 Metoprolol Succ 50mg Ext Rel Tab PO 11/30/24 08:59 Not Given DAILY DARREN Miconazole Nitrate 1 appln 11/02/24 23:00 11/06/24 10:39 Miconazole Nitrate Powder 85 Gm EXT 12/02/24 22:59 Not Given BID DARREN Nystatin 1 appln 10/30/24 23:05 11/04/24 09:16 Nystatin Powder 15gm Btl EXT 11/29/24 23:04 1 appln PRN PRN Administration Affected Skin Folds Senna/Docusate Sodium 2 tab 10/31/24 21:00 11/05/24 20:32 Docusate Sodium/Senna 50/8.6mg Tab PO 11/30/24 20:59 Not Given HS DARREN Spironolactone 12.5 mg 11/01/24 09:00 11/06/24 10:39 Spironolactone 12.5 Mg Tab PO 12/01/24 08:59 Not Given DAILY DARREN Trazodone HCl 50 mg 11/03/24 21:00 11/05/24 20:38 Trazodone Hcl 50 Mg Tab PO 12/03/24 20:59 50 mg HS DARREN Administration NPO Date Last Intake of Fluids: 11/06/24 Time Last Intake of Fluids: 00:00 Date Last Intake of Solids: 11/06/24 Time Last Intake of Solids: 00:00 Past Medical History Medical History History of pulmonary embolism Chronic hyponatremia PAF (paroxysmal atrial fibrillation) Cognitive dysfunction Hepatocellular carcinoma PVD (peripheral vascular disease) CKD (chronic kidney disease) Pulmonary emboli Dyslipidemia HTN (hypertension) Alcoholic cirrhosis Amputation toe Sepsis Atrial fibrillation Social History Smoking Status: Never smoker Do You Dip or Chew Tobacco: No Hx Alcohol Use: No Alcohol Intake Frequency Comment: Pt report 1-2 beers per day. Last "drink few months ago"? Hx Substance Use: No substance use type: does not use Physical Exam Vital Signs Last Vital Signs Temp 36.6 C 11/06/24 13:31 Pulse 86 11/06/24 13:31 Resp 18 11/06/24 13:31 BP 112/75 11/06/24 08:19 Pulse Ox 98 11/06/24 13:31 O2 Del Method Room Air 11/06/24 13:31 Testing Laboratory Results 11/06/24 06:54 11/06/24 06:54 PT 14.1 Seconds (9.0-12.0) H 10/30/24 11:15 INR 1.3 (0.9-1.1) H 10/30/24 11:15 APTT 37 Seconds (21-31) H 10/30/24 11:15 Hemoglobin A1c 5.8 % (4.5-5.6) H 10/31/24 05:58 10/30/24 11:15 Aerobic Blood Culture - Final Blood No growth in Aerobic bottle after 5 days. Anaerobic Blood Culture - Final No growth in Anaerobic bottle after 5 days. 10/30/24 12:00 Aerobic Blood Culture - Final Blood No growth in Aerobic bottle after 5 days. Anaerobic Blood Culture - Final No growth in Anaerobic bottle after 5 days. 11/02/24 Unknown Gram Stain - Final Leg,Left Wound Culture - Final Proteus mirabilis 11/06/24 11/06/24 11/06/24 13:29 11:37 05:54 POC Glucose 133 H 144 H 127 H Electrocardiogram Date: 10/30/24 DICTATED BY: Shaggy Moscoso MD Test Reason : Blood Pressure : */* mmHG Vent. Rate : 82 BPM Atrial Rate : * BPM P-R Int : * ms QRS Dur : 106 ms QT Int : 390 ms P-R-T Axes : * 44 231 degrees QTcB Int : 455 ms Atrial fibrillation Abnormal ECG When compared with ECG of 30-Oct-2024 10:57, (unconfirmed) No significant change was found Confirmed by Shaggy Moscoso ([id number]) on 11/02/2024 12:33:46 PM
[2024-11-06] MEDS ORDERED: ONDANSETRON INJ 2 MG/ML 2 ML VIAL ONE (14:27)
[2024-11-06] MEDS ORDERED: PROPOFOL IV EMULSION 10 MG/ML 20 ML VIAL IV ONE ×2 (14:27→17:11)
--- NOTE | 2024-11-06 15:20 | Hospitalist Progress Note ---
<Statement entered by Ed Edwards, - 11/06/24 17:01> I have seen and examined the patient and have discussed the case with the advance practice provider. I have reviewed the advanced practitioner's documentation, and I agree with, and take responsibility for that plan of care. Patient seen prior to surgical intervention. Patient aware and anticipating surgery. Anticipate Return to [facility] when stabilized postoperatively and plans for antibiotics coordinated. I spent a total of 10 minutes coordinating, documenting, and providing care for this patient excluding time spent by another provider/QHP. 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 Has been at [facility] since 08/25/24 after an admission to [facility] for right knee septic arthritis. Cultures grew group B strep and patient completed Ceftriaxone on 09/13/24. Patient also with history of PVD - follows with [facility] vascular - S/P R ADRIAN & Peroneal angioplasties and right 5th toe amp on 04/09/[address] Mina for severe PAD & gangrene right 5th toe. S/P R Peroneal angioplasty, right 5th MTH amputation, right 4th toe proximal metatarsal amputation on 07/05/[address] Mina for PAD, OM of 5th metatarsal and necrosis of 4th right toe. Podiatry and vascular consults Continue empiric IV Zosyn and IV Vanco Blood cultures NGTD, Nasal MRSA +, No open areas or drainage to culture Does not appear septic s/p CTA w/ runoff - no indication for intervention per vascular however low threshold to reconsult for concerns of healing or perfusion of TMA site OR today with Dr. Oconnell (2) Wound of left lower extremity: Plan: Wounds noted to left lateral ankle and left lateral/posterior calf Podiatry following w/ wound care recs - wound culture growing pansensitive proteus, plan to continue empiric Vanco and Zosyn until operative cultures obtained today (3) Bilateral pleural effusion: (4) Acute heart failure with preserved ejection fraction (HFpEF): Plan: CXR on admission suggestive of congestive changes with bilateral pleural effusions Repeat CXR on 11/01 shows Cardiomegaly with interstitial pulmonary edema. Unchanged right greater than left layering pleural effusions with bibasilar opacities Started IV Lasix 40mg IV daily on 11/01 Currently on room air, denies shortness of breath Attempted right sided thoracentesis mostly for diagnostic purposes given history of hepatocellular carcinoma and liver lesions noted on CTA, however patient declined procedure Note history of prior right pleural effusion s/p thoracentesis in 2019 with cytology being negative at that time Underlying cirrhosis likely contributing as well Echo 07/2024 from [facility]: EF 65%, no significant valvular disease Weight on admission 102.1kg -> 98.5 kg -> 103kg Knott placed for I/Os, daily weights, low Na+ diet, 1500ml FR Cardio consult for pre op eval - ECG unchanged from previous, moderate perioperative cardiac risk - Resting echo 11/03 with preserved EF 65-70%, mild concentric LVH, AV sclerosis without significant stenosis - Continue beta sal, resume Eliquis post op when able, add high intensity statin post-operatively, continue spironolactone and 40mg IV lasix daily for now (5) Pulmonary lesion, right: Plan: CXR shows 3.9 cm right hilar nodular focus is likely secondary to summation density associated with pulmonary vasculature CT chest shows foci of round atelectasis in RML and RLL that may correspond to opacity described in CXR Multiple pulmonary nodules noted on CT chest - follow up as outpatient (6) Insulin-requiring or dependent type II diabetes mellitus: Plan: Hgb A1c 5.8 Lantus/Novolog while hospitalized (7) PAF (paroxysmal atrial fibrillation): Plan: Rate controlled on metoprolol Anticoagulated with Eliquis - on hold for OR today - will resume post operatively when able Goal Mg>2 and K >4 (8) Chronic hyponatremia: Plan: Due to underlying liver cirrhosis Na+ 131 -> 130 -> 132 Started on 1500 FR on 11/01 (9) History of pulmonary embolism: Plan: Lovenox bridge as above - on hold for OR today - resume Eliquis post operatively as able (10) Buttock wound: Plan: Left buttock wound DTI Right buttock stage II Does not appear infected, wound photos reviewed Wound care nurse following (11) Hepatocellular carcinoma: Plan: Hx of HCC s/p tumor ablation in 2019, last chemo in 2022 - discontinued due to poor tolerance, patient was previously on hospice for about 3 months however stabilized CTA showed multiple liver lesions, last liver MRI in [address] Cordell Guzman Discussed with , recommend outpatient follow up with Dr. Guzman for further discussion regarding additional imaging (12) Alcoholic cirrhosis: Plan: BL pleural effusions as above, does not appear encephalopathic Continue Lasix/Spironolactone, lactulose Plan DVT Prophylaxis: Eliquis and lovenox on hold for OR today - will resume as able Code Status: FULL CODE PCP: Adonay Arzola Disposition: anticipate dc back to [facility] once medically stable Patient seen in collaboration with Dr Edwards. Please see addendum. I spent a total of 50 minutes coordinating, documenting and providing care for this patient excluding time spent in the performance of separately billed services or time spent by another provider/QHP. Admission and Anticipated Discharge Date Admission Date: October 30, 2024 Subjective Patient seen resting in bed Offers no acute complaints Denies chest pain, SOB, abdominal pain NPO for OR today Review of Systems Review of Systems: All systems reviewed & are unremarkable except as noted in Subjective Physical Exam Physical Exam: General/Psych: WD/WN, sitting up in bed, NAD, conversing easily, flat affect Head: normocephalic, atraumatic Eyes: normal inspection, PERRL, conjunctivae pink ENT: external ear and nose normal, oropharynx normal Neck: normal visual inspection, trachea midline Respiratory: normal respiratory effort, lungs diminished but no wheeze/rales/rhonchi, no accessory muscle use Cardiovascular: irregular rate and rhythm, no murmur/rub/gallop, no JVD Extremities: no cyanosis or clubbing, normal peripheral pulses, no BLE edema, waffle boots in place Abdomen/GI: normal bowel sounds, soft, nontender Neurologic/MSK: A+Ox3, moves all extremities Skin: no rashes, normal color, warm and dry; left foot with necrotic 2-5th digits Results & Data Results & Data Vital Signs (Past 12 Hours) Vital Signs Temp Pulse Resp BP Pulse Ox O2 Del Method 11/06/24 13:31 36.6 C 86 18 98 Room Air 11/06/24 08:19 36.8 C 86 18 112/75 97 Room Air Laboratory Results Short CBC 11/06/24 Range/Units 06:54 WBC 8.51 (4.8-10.8) K/ul Hgb 12.0 L (14.0-18.0) g/dl Hct 35.0 L (42.0-52.0) % Plt Count 236 (130-400) K/uL BMP 11/06/24 06:54 Sodium 132 L Potassium 3.7 Chloride 100 Carbon Dioxide 27 BUN 16 Creatinine 0.82 Glucose 128 H Calcium 8.5 L I have independently reviewed and interpreted patient's labs including CBC, BMP, mag. Medications Administered Current Inpatient Medications Acetaminophen (Acetaminophen 325 Mg Tab) 650 mg PO Q4H PRN PRN Reason: pain/fever Stop: 11/29/24 18:29 Acetaminophen (Acetaminophen 500 Mg Tab) 1,000 mg PO TID DARREN Stop: 11/30/24 20:59 Last Admin: 11/06/24 10:29 Dose: Not Given Al Hydrox/Mg Hydrox/Simethicone (Aluminum/Magnesium Susp 30 Ml Udc) 30 ml PO Q6H PRN PRN Reason: Dyspepsia Stop: 11/29/24 18:29 Aspirin (Aspirin 81 Mg Ectab) 81 mg PO DAILY DARREN Stop: 12/01/24 08:59 Last Admin: 11/06/24 10:33 Dose: Not Given Atropine Sulfate (Atropine Sulfate 0.1 Mg/Ml 10ml Syr) 0.5 mg IV Q1M PRN PRN Reason: PACU Use-HR<40 &/or Bradycardi Stop: 11/06/24 22:43 Dextrose (Dextrose 50% 50 Ml Syringe) 25 - 50 ml IV UD PRN; Protocol PRN Reason: Hypoglycemia Protocol Stop: 11/29/24 18:29 Enoxaparin Sodium (Enoxaparin 100 Mg/1ml Syr) 100 mg SQ Q12H DARREN Stop: 11/29/24 20:59 Last Admin: 11/05/24 20:39 Dose: Not Given Ephedrine Sulfate (Ephedrine Sulfate 50 Mg/Ml Amp) 5 mg IV Q5M PRN PRN Reason: PACU Use Only-SBP<90 mmHg Stop: 11/06/24 22:43 Fentanyl Citrate (Fentanyl Citrate Pf 100 Mcg/2 Ml Vial) 25 mcg IV Q5M PRN PRN Reason: PACU Use Only-Pain Stop: 11/06/24 22:43 Furosemide (Furosemide 40 Mg/4 Ml Vial) 40 mg IV DAILY DARREN Stop: 12/03/24 08:59 Last Admin: 11/06/24 10:38 Dose: Not Given Glucagon (Glucagon For Inj 1 Mg Vial) 1 mg SQ UD PRN; Protocol PRN Reason: Hypoglycemia Protocol Stop: 11/29/24 18:29 Glucose (Glucose 40% Gel 15 Gm Tube) 15 - 30 gm PO UD PRN; Protocol PRN Reason: Hypoglycemia Protocol Stop: 11/29/24 18:29 Glucose (Glucose 10 Tab/Tube) 4 - 8 tab PO UD PRN; Protocol PRN Reason: Hypoglycemia Protocol Stop: 11/29/24 18:29 Piperacillin Sod/Tazobactam Sod (Zosyn) 4.5 gm in 100 mls @ 25 mls/hr IV Q8H DARREN; Protocol Stop: 11/06/24 19:59 Last Admin: 11/06/24 12:06 Dose: 25 mls/hr Vancomycin HCl 750 mg/ Sodium (Chloride) 265 mls @ 200 mls/hr IV Q12H DARREN Stop: 11/13/24 23:59 Last Admin: 11/06/24 12:11 Dose: 200 mls/hr Insulin Aspart (Insulin Aspart Per Unit Charge) 0 units SC Q6 DARREN Stop: 12/06/24 05:59 Last Admin: 11/06/24 12:06 Dose: 1 units Lactulose (Lactulose Syrup 20 Gm/30 Ml Udc) 10 gm PO BID DARREN Stop: 11/29/24 20:59 Last Admin: 11/06/24 10:38 Dose: Not Given Levalbuterol HCl (Levalbuterol 1.25 Mg/3 Ml Neb) 1.25 mg NEB Q4H PRN PRN Reason: Shortness Of Breath Or Wheezing Stop: 11/29/24 22:56 Last Admin: 10/31/24 20:58 Dose: 1.25 mg Magnesium Hydroxide (Magnesium Hydroxide Susp 30 Ml Udc) 30 ml PO Q6H PRN PRN Reason: Constipation Stop: 11/29/24 18:29 Magnesium Oxide (Magnesium Oxide 400 Mg Tab) 400 mg PO QAM [facility] Stop: 12/05/24 08:59 Last Admin: 11/06/24 10:39 Dose: Not Given Melatonin (Melatonin 3 Mg Tab) 3 mg PO HS PRN PRN Reason: Insomnia Stop: 11/29/24 18:29 Last Admin: 11/05/24 20:36 Dose: 3 mg Metoprolol Succinate (Metoprolol Succ 50mg Ext Rel Tab) 100 mg PO DAILY DARREN Stop: 11/30/24 08:59 Last Admin: 11/06/24 10:39 Dose: Not Given Miconazole Nitrate (Miconazole Nitrate Powder 85 Gm) 1 appln EXT BID DARREN Stop: 12/02/24 22:59 Last Admin: 11/06/24 10:39 Dose: Not Given Miscellaneous (Carbohydrates For Hypoglycemia ) 15 - 30 gm PO UD PRN PRN Reason: Hypoglycemia Protocol Stop: 11/29/24 18:29 Miscellaneous Information (Vancomycin Consult Active) 1 each N/A UD PRN PRN Reason: Consult Stop: 11/29/24 12:12 Miscellaneous Information (Pharmacy Glycemic Mgmt Consult) 1 each N/A UD PRN PRN Reason: Consult Stop: 11/29/24 18:29 Nystatin (Nystatin Powder 15gm Btl) 1 appln EXT PRN PRN PRN Reason: Affected Skin Folds Stop: 11/29/24 23:04 Last Admin: 11/04/24 09:16 Dose: 1 appln Ondansetron HCl (Ondansetron Inj 2 Mg/Ml 2 Ml Vial) 4 mg IV Q6H PRN PRN Reason: Nausea Stop: 11/29/24 18:29 Ondansetron HCl (Ondansetron Inj 2 Mg/Ml 2 Ml Vial) 4 mg IV ONCE PRN PRN Reason: PACU Use Only-Nausea/Vomiting Stop: 11/06/24 22:17 Senna/Docusate Sodium (Docusate Sodium/Senna 50/8.6mg Tab) 2 tab PO HS DARREN Stop: 11/30/24 20:59 Last Admin: 11/05/24 20:32 Dose: Not Given Spironolactone (Spironolactone 12.5 Mg Tab) 12.5 mg PO DAILY DARREN Stop: 12/01/24 08:59 Last Admin: 11/06/24 10:39 Dose: Not Given Tramadol HCl (Tramadol Hcl 50 Mg Tablet) 50 mg PO Q6H PRN PRN Reason: Pain Stop: 11/30/24 14:01 Trazodone HCl (Trazodone Hcl 50 Mg Tab) 50 mg PO HS DARREN Stop: 12/03/24 20:59 Last Admin: 11/05/24 20:38 Dose: 50 mg
--- NOTE | 2024-11-06 15:30 | History & Physical Bridge Note ---
Date of Service November 06, 2024 History & Physical Bridge Note I have examined the patient, reviewed the History & Physical and in the interval since the performance of the History & Physical I have noted the following changes of clinical significance: Patient cleared from medical and vascular standpoint to move forward with procedure. no other changes noted
[2024-11-06] MEDS: LIDOCAINE 1% LOCAL 20 ML VIAL ONE (15:50)
[2024-11-06] MEDS: BUPIVACAINE 0.5 % 5 MG/1 ML MPF 30ML VIAL ONE (15:50)
[2024-11-06] MEDS ORDERED: PHENYLEPHRINE 100MCG/ML 5ML SYR ONE ×2 (15:58)
--- NOTE | 2024-11-06 17:25 | Post Operative Brief Note ---
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
--- NOTE | 2024-11-06 18:25 | Anesthesiology Progress Note ---
Date of Service November 06, 2024 Anesthesia Post Procedure Vital Signs Vital Signs: Temp Pulse Pulse Resp BP BP Pulse Ox 11/06/24 18:05 86 19 133/70 96 11/06/24 17:55 36.3 C L 78 20 123/68 95 11/06/24 17:45 94 H 17 160/91 H 97 11/06/24 17:35 104 H 20 137/79 96 11/06/24 17:29 36.6 C 98 H 14 153/69 H 97 11/06/24 13:31 36.6 C 86 18 98 11/06/24 08:19 36.8 C 86 18 112/75 97 11/06/24 01:11 11/06/24 01:00 37 C 86 20 112/75 98 O2 Del Method O2 Flow Rate 11/06/24 18:05 Room Air 11/06/24 17:55 Room Air 11/06/24 17:45 Room Air 11/06/24 17:35 Room Air 11/06/24 17:29 Oxymask 7 11/06/24 13:31 Room Air 11/06/24 08:19 Room Air 11/06/24 01:11 Room Air 11/06/24 01:00 Room Air Transfer of Care Handoff Completed per policy Notes Mental Status: alert / awake / arousable and participated in evaluation Patient Amnestic to Procedure: Yes Nausea / Vomiting: adequately controlled Pain: adequately controlled Airway Patency, RR, SpO2: stable & adequate BP & HR: stable & adequate Hydration State: stable & adequate Anesthetic Complications: no major complications apparent
[2024-11-06] MEDS ORDERED: Nursing to Pharmacy Communication SCH (19:00)
[2024-11-07 07:55] LABS: Hematocrit (blood only) 36.3 % (42.0-52.0); Hemoglobin 11.6 g/dl (14.0-18.0); Mean Corpuscular Hemoglobin 30.9 pg (25.0-34.0); Mean Corpuscular Volume 96.5 fL (80.0-100.0); Platelet Count 263 K/uL (130-400); RDW Standard Deviation 50.0 fL (36.4-46.3); Red Blood Count 3.76 M/uL (4.70-6.10); White Blood Count 10.72 K/ul (4.8-10.8)
[2024-11-07 08:20] LABS: Anion Gap 6.0 (3-11); Blood Urea Nitrogen 15.0 mg/dl (6-23); Calcium 8.7 mg/dl (8.6-10.3); Carbon Dioxide 26.0 mmol/L (21-32); Chloride 101.0 mmol/L (98-107); Creatinine Clr Calc Pharmacy 88.9 ml/min; Glucose 123.0 mg/dl (70-99(Fasting)); Magnesium 1.8 mg/dl (1.7-2.4); Potassium 4.1 mmol/L (3.5-5.1); Sodium 133.0 mmol/L (136-145)
--- NOTE | 2024-11-07 08:40 | Hospitalist Progress Note ---
<Statement entered by Ed Edwards DO - 11/07/24 16:41> I have seen and examined the patient and have discussed the case with the advance practice provider. I have reviewed the advanced practitioner's documentation, and I agree with, and take responsibility for that plan of care. Uneventful postoperative. Foot dressing dry and intact with compression Shon wrap. Continue to follow cultures, narrow antibiotics. Case management to continue to coordinate return to [facility]. I spent a total of 16 minutes coordinating, documenting, and providing care for this patient excluding time spent by another provider/Q. Date of Service November 07, 2024 Assessment & Plan (1) Tissue necrosis with gangrene in peripheral vascular disease: (2) Wound of left lower extremity: (3) Bilateral pleural effusion: (4) Acute heart failure with preserved ejection fraction (HFpEF): (5) Pulmonary lesion, right: (6) Insulin-requiring or dependent type II diabetes mellitus: (7) PAF (paroxysmal atrial fibrillation): (8) Chronic hyponatremia: (9) History of pulmonary embolism: (10) Buttock wound: (11) Hepatocellular carcinoma: (12) Alcoholic cirrhosis: Plan 84 year old male from [facility] with PMH significant for type 2 diabetes, dyslipidemia, chronic hyponatremia, recurrent right pleural effusion, paroxysmal atrial fibrillation, peripheral vascular disease, hypertension, portal hypertension, history of PE, alcoholic cirrhosis of liver with ascites, GERD, CKD IIIa, 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 Has been at [facility] since 08/25/24 after an admission to [facility] for right knee septic arthritis. Cultures grew group B strep and patient completed Ceftriaxone on 09/13/24. Tissue necrosis with gangrene in peripheral vascular disease Follows with [facility] - S/P R ADRIAN & Peroneal angioplasties and right 5th toe amp on 04/09/[address] Mina for severe PAD & gangrene right 5th toe. S/P R Peroneal angioplasty, right 5th MTH amputation, right 4th toe proximal metatarsal amputation on 07/05/[address] Mina for PAD, OM of 5th metatarsal and necrosis of 4th right toe Underwent CTA with runoff and discussion by Vascular and Podiatry who decided to proceed with TMA Blood cultures NGTD Intraoperative cultures prelim growing pseudomonas and proteus mirabilis Continue Zosyn and dc vancomycin POD#1 L foot transmetatarsal amputation and left tendoachilles lengthening on 11/06/[address] Oconnell with recommendations: Weight bearing status: Nonweightbearing left lower extremity Wound care: Will change surgical dressing postop day 1. VTE Prophylaxis: okay from podiatry standpoint Antibiotics: broad-spectrum per medicine. Intraoperative culture pending Pain Control: Multimodal Discharge Plan: pending clinical course. Like to monitor patient's transmetatarsal amputation closely over the next few days to determine if r eevaluation by vascular surgery is necessary should the be any signs of failing at the transmetatarsal amputation site. Bilateral ankle wounds Wound care recommendations per Podiatry: -Left lateral ankle and leg wounds dressed with Aquacel Ag and bordered foam every other day -Right lateral ankle wound: [place] with Betadine and leave exposed to air Sacral pressure ulcer Wound image on 11/01/2024 Wound care recommendations per WOCN: -Clean with saline, cover each side with its own medium Optifoam, change daily and as needed, remove saturated and soiled dressings immediately Bilateral pleural effusion Heart failure with preserved ejection fraction (HFpEF) Admitting CXR suggestive of congestive changes with bilateral pleural effusions Repeat CXR on 11/01 showed cardiomegaly with interstitial pulmonary edema; unchanged R>L layering pleural effusions with bibasilar opacities Offered right sided thoracentesis mostly for diagnostic purposes given history of hepatocellular carcinoma and liver lesions noted on CTA, however patient declined procedure Note history of prior right pleural effusion s/p thoracentesis in 2019 with cytology being negative at that time Resting echo 11/03 with preserved EF 65-70%, mild concentric LVH, AV sclerosis without significant stenosis Continue daily weights, low salt diet, 1500mL FR Started Lasix 40mg IV daily on 11/01-> transition to home dosing 20mg PO daily Cardiology consulted for preop evaluation and recommended adding high intensity statin post operatively Paroxysmal atrial fibrillation Resume Eliquis on 11/07 Continue metoprolol Type 2 diabetes A1C 5.8% BSG ACHS and SSI while inpatient Alcoholic cirrhosis Appears compensated Continue diuretics and lactulose Chronic hyponatremia Due to underlying liver cirrhosis Sodium 133 today Continue fluid restriction Hepatocellular carcinoma Hx of HCC s/p tumor ablation in 2019, last chemo in 2022 - discontinued due to poor tolerance, patient was previously on hospice for about 3 months however stabilized CTA showed multiple liver lesions, last liver MRI in [address] Cordell Guzman Discussed with , recommend outpatient follow up with Dr. Guzman for further discussion regarding additional imaging Pulmonary nodules CXR shows 3.9 cm right hilar nodular focus is likely secondary to summation density associated with pulmonary vasculature CT chest shows foci of round atelectasis in RML and RLL that may correspond to opacity described in CXR Multiple pulmonary nodules noted on CT chest - follow up as outpatient DVT Prophylaxis: Eliquis Code Status: FULL CODE PCP: Adonay Arzola Disposition: anticipate dc back to [facility] once medically stable Patient seen in collaboration with Dr Edwards. Please see addendum. I spent a total of 50 minutes coordinating, documenting and providing care for this patient excluding time spent in the performance of separately billed services or time spent by another provider/QHP. Admission and Anticipated Discharge Date Admission Date: October 30, 2024 Subjective Patient seen resting in bed Reports no pain in his left foot Denies chest pain, SOB, abdominal pain Review of Systems Review of Systems: All systems reviewed & are unremarkable except as noted in Subjective Physical Exam Physical Exam: General/Psych: WD/WN, sitting up in bed, NAD, conversing easily, flat affect Head: normocephalic, atraumatic Eyes: normal inspection, PERRL, conjunctivae pink ENT: external ear and nose normal, oropharynx normal Neck: normal visual inspection, trachea midline Respiratory: normal respiratory effort, lungs diminished but no wheeze/rales/rhonchi, no accessory muscle use Cardiovascular: irregular rate and rhythm, no murmur/rub/gallop, no JVD Extremities: no cyanosis or clubbing, normal peripheral pulses, no BLE edema, sensation intact BLE Abdomen/GI: normal bowel sounds, soft, nontender Neurologic/MSK: A+Ox3, moves all extremities Skin: no rashes, normal color, warm and dry; left foot wrapped in shon bandage c/d/i Results & Data Results & Data Vital Signs (Past 12 Hours) Vital Signs Temp Pulse Resp BP Pulse Ox O2 Del Method 11/07/24 04:09 36.5 C 98 H 18 145/88 H 95 Room Air 11/06/24 22:46 36.6 C 83 18 136/87 95 Room Air Laboratory Results Short CBC 11/07/24 Range/Units 07:21 WBC 10.72 (4.8-10.8) K/ul Hgb 11.6 L (14.0-18.0) g/dl Hct 36.3 L (42.0-52.0) % Plt Count 263 (130-400) K/uL BMP 11/07/24 07:21 Sodium 133 L Potassium 4.1 Chloride 101 Carbon Dioxide 26 BUN 15 Creatinine 0.77 Glucose 123 H Calcium 8.7 I have independently reviewed and interpreted patient's labs including CBC and BMP Medications Administered Current Inpatient Medications Acetaminophen (Acetaminophen 325 Mg Tab) 650 mg PO Q4H PRN PRN Reason: pain/fever Stop: 11/29/24 18:29 Acetaminophen (Acetaminophen 500 Mg Tab) 1,000 mg PO TID DARREN Stop: 11/30/24 20:59 Last Admin: 11/07/24 14:21 Dose: 1,000 mg Al Hydrox/Mg Hydrox/Simethicone (Aluminum/Magnesium Susp 30 Ml Udc) 30 ml PO Q6H PRN PRN Reason: Dyspepsia Stop: 11/29/24 18:29 Aspirin (Aspirin 81 Mg Ectab) 81 mg PO DAILY DARREN Stop: 12/01/24 08:59 Last Admin: 11/07/24 08:57 Dose: 81 mg Dextrose (Dextrose 50% 50 Ml Syringe) 25 - 50 ml IV UD PRN; Protocol PRN Reason: Hypoglycemia Protocol Stop: 11/29/24 18:29 Enoxaparin Sodium (Enoxaparin 100 Mg/1ml Syr) 100 mg SQ Q12H DARREN Stop: 11/29/24 20:59 Last Admin: 11/05/24 20:39 Dose: Not Given Furosemide (Furosemide 40 Mg/4 Ml Vial) 40 mg IV DAILY DARREN Stop: 12/03/24 08:59 Last Admin: 11/07/24 09:12 Dose: 40 mg Glucagon (Glucagon For Inj 1 Mg Vial) 1 mg SQ UD PRN; Protocol PRN Reason: Hypoglycemia Protocol Stop: 11/29/24 18:29 Glucose (Glucose 40% Gel 15 Gm Tube) 15 - 30 gm PO UD PRN; Protocol PRN Reason: Hypoglycemia Protocol Stop: 11/29/24 18:29 Glucose (Glucose 10 Tab/Tube) 4 - 8 tab PO UD PRN; Protocol PRN Reason: Hypoglycemia Protocol Stop: 11/29/24 18:29 Vancomycin HCl 750 mg/ Sodium (Chloride) 265 mls @ 200 mls/hr IV Q12H DARREN Stop: 11/13/24 23:59 Last Admin: 11/07/24 12:37 Dose: 200 mls/hr Piperacillin Sod/Tazobactam Sod (Zosyn) 4.5 gm in 100 mls @ 25 mls/hr IV Q8H DARREN; Protocol Stop: 11/13/24 15:59 Insulin Aspart (Insulin Aspart Per Unit Charge) 0 units SC ACHS DARREN Stop: 12/06/24 20:59 Last Admin: 11/07/24 12:30 Dose: 2 units Lactulose (Lactulose Syrup 20 Gm/30 Ml Udc) 10 gm PO BID DARREN Stop: 11/29/24 20:59 Last Admin: 11/07/24 08:57 Dose: 10 gm Levalbuterol HCl (Levalbuterol 1.25 Mg/3 Ml Neb) 1.25 mg NEB Q4H PRN PRN Reason: Shortness Of Breath Or Wheezing Stop: 11/29/24 22:56 Last Admin: 10/31/24 20:58 Dose: 1.25 mg Magnesium Hydroxide (Magnesium Hydroxide Susp 30 Ml Udc) 30 ml PO Q6H PRN PRN Reason: Constipation Stop: 11/29/24 18:29 Magnesium Oxide (Magnesium Oxide 400 Mg Tab) 400 mg PO QAM [facility] Stop: 12/05/24 08:59 Last Admin: 11/07/24 08:57 Dose: 400 mg Melatonin (Melatonin 3 Mg Tab) 3 mg PO HS PRN PRN Reason: Insomnia Stop: 11/29/24 18:29 Last Admin: 11/05/24 20:36 Dose: 3 mg Metoprolol Succinate (Metoprolol Succ 50mg Ext Rel Tab) 100 mg PO DAILY [facility] Stop: 11/30/24 08:59 Last Admin: 11/07/24 08:57 Dose: 100 mg Miconazole Nitrate (Miconazole Nitrate Powder 85 Gm) 1 appln EXT BID [facility] Stop: 12/02/24 22:59 Last Admin: 11/07/24 08:59 Dose: 1 appln Miscellaneous (Carbohydrates For Hypoglycemia ) 15 - 30 gm PO UD PRN PRN Reason: Hypoglycemia Protocol Stop: 11/29/24 18:29 Miscellaneous Information (Vancomycin Consult Active) 1 each N/A UD PRN PRN Reason: Consult Stop: 11/29/24 12:12 Nystatin (Nystatin Powder 15gm Btl) 1 appln EXT PRN PRN PRN Reason: Affected Skin Folds Stop: 11/29/24 23:04 Last Admin: 11/04/24 09:16 Dose: 1 appln Ondansetron HCl (Ondansetron Inj 2 Mg/Ml 2 Ml Vial) 4 mg IV Q6H PRN PRN Reason: Nausea Stop: 11/29/24 18:29 Senna/Docusate Sodium (Docusate Sodium/Senna 50/8.6mg Tab) 2 tab PO HS DARREN Stop: 11/30/24 20:59 Last Admin: 11/06/24 20:39 Dose: 2 tab Spironolactone (Spironolactone 12.5 Mg Tab) 12.5 mg PO DAILY DARREN Stop: 12/01/24 08:59 Last Admin: 11/07/24 08:56 Dose: 12.5 mg Tramadol HCl (Tramadol Hcl 50 Mg Tablet) 50 mg PO Q6H PRN PRN Reason: Pain Stop: 11/30/24 14:01 Trazodone HCl (Trazodone Hcl 50 Mg Tab) 50 mg PO HS DARREN Stop: 12/03/24 20:59 Last Admin: 11/06/24 20:39 Dose: 50 mg
--- NOTE | 2024-11-07 10:29 | Operative Report ---
[facility] Post Operative Report Pre & Post Diagnosis Operation Date: 11/06/24 14:10 Pre-Op Diagnosis: Peripheral vascular disease due to secondary diabetes, Tissue necrosis with gangrene in peripheral vascular disease, Gangrene of left foot Post-Op Diagnosis: Peripheral vascular disease due to secondary diabetes, Tissue necrosis with gangrene in peripheral vascular disease, Gangrene of left foot I identified the patient and participated in the time-out.: Yes Procedure Operation Date: 11/06/24 14:10 Actual Procedures p Left Foot Transmetatarsal Amputation, Left Tendoachilles Lengthening(Left) - Cj Oconnell DPM Surgeon Cj Oconnell DPM Security Compliance Engineer none Estimated Blood Loss 150 Findings Consistent with Post-Op Diagnosis Specimens Pathology: 1-5. Proximal margin metatarsals 1 through 5 6. Left foot for gross pathology Microbiology: 7. Soft tissue left foot for culture and sensitivity Drains None Description of Procedure Patient is brought in the operating room and remains in hospital bed in supine position. Timeout is held confirming correct patient, side, site, procedure with all necessary parties confirming. Following IV sedation local anesthesia is obtained about patient's left ankle in a modified ankle block fashion utilizing a total of 20 cc of one-to-one mixture 1% lidocaine plain and 0.5% Marcaine plain. The lower extremity was scrubbed prepped and draped to the level of the knee. Attention is directed to the left foot with dry gangrene noted to the 2nd, 3rd, 4th and 5th digits with gangrene extending into the forefoot laterally and plantarly surrounding the fifth metatarsal head. Skin scribe was used to plan an incision which came to a minimum of 1 cm margin proximal to the gangrenous tissue. Margin is considerable dorsally and follows the gangrenous tissue more closely in the plantar aspect of the foot. Incision is started dorsally with a 15 blade using electrocautery to maintain adequate hemostasis throughout the procedure larger bleeding lumens are ligated with Vicryl suture as needed. Following exposure of the dorsal medial and lateral aspect of all 5 metatarsals periosteal tissue was freed with a jon elevator and a sagittal saw was utilized to resect the forefoot in an arc attempting to recreate the metatarsal parabola more proximally to reduce pressure to the forefoot with future weightbearing and transfer. Soft tissues within freed plantarly using sharp and blunt dissection and electrocautery as needed to create a plantar flap with as much viable soft tissue and muscle belly as possible. The amputated forefoot is passed from the operative field to the back table and sagittal saw was utilized to resect proximal margin for bone pathology from each of the metatarsals. Bone stock at this level was noted to be appropriate. The remainder of the forefoot is sent for gross pathology. Surgical wound is flushed with copious amounts of normal sterile saline. Tendinous structures within the surgical wound are pulled distally cut and allowed to retract into proximal soft tissues. Surgical wound is evaluated and noted to be free of any necrotic tissue. Wound is again flushed copious amounts of normal sterile saline. Deep soft tissue structures were reapproximated with a 2-0 Vicryl in simple interrupted fashion. Wound edges were reapproximated and closed with a 3-0 nylon in simple interrupted fashion. Foot is cleansed with normal sterile saline dried and dressed with Adaptic nonadherent gauze 4 x 4 fluff gauze ABD pad to the dorsum of the foot to protect soft tissue structures clean and lightly applied Coban to hold dressings in place. Patient tolerated procedure and anesthesia well. He was transferred to recovery room with vital signs stable and vascular status intact to the remaining digits of the operative foot. Following a brief period about postoperative monitoring recovery room patient will be transferred back to his bed on the medical floor for continued IV antibiotics and medical management. Will await proximal margin pathology for antibiotic adjustment prior to discharge. Patient to remain nonweightbearing to the surgical foot until further notice. Will reevaluate wound at first dressing change and adjust weightbearing status at that time. Plan: Weight bearing status: Nonweightbearing left lower extremity Wound care: Will change surgical dressing postop day 1. VTE Prophylaxis: okay from podiatry standpoint Antibiotics: broad-spectrum per medicine. Intraoperative culture pending Pain Control: Multimodal Discharge Plan: pending clinical course. Like to monitor patient's transmetatarsal amputation closely over the next few days to determine if re evaluation by vascular surgery is necessary should the be any signs of failing at the transmetatarsal amputation site. I attest to the content of the Intraoperative Record and any orders documented therein. Any exceptions are noted below.
[2024-11-07 11:21] VITALS: RESP 16
[2024-11-07] MEDS: PIPERACILLIN/TAZOBACTAM 4.5 GM/100 ML BAG IV ONE (11:47)
--- NOTE | 2024-11-07 11:55 | Pharmacy Report ---
Pharmacy Glycemic Sign Off Nt - Date of Service November 07, 2024 - Assessment & Plan ASSESSMENT: * Pharmacy was consulted by Dr Edwards on 10/30 for glycemic control and to write orders per [facility] inpatient glycemic control protocol. * Major changes made by pharmacy to antidiabetic regimen include: * added novolog scale * Patient has been receiving minimal insulin and blood sugars have been stable PLAN FOR INPATIENT GLYCEMIC CONTROL: No changes needed to current regimen. * No basal insulin currently warranted * Continue NovoLog per scale ACHS/Q6hrs while NPO * Goal range = 110-140 mg/dl * CF = 30 mg/dl/unit * CR = 1 unit for ever 10 g CHO consumed * Pharmacy is signing off of glycemic consult and will no longer be making adjustments to inpatient regimen. Please feel free to re-consult if needed. Thank you.
[2024-11-07] MEDS: PIPERACILLIN/TAZOBACTAM 4.5 GM/100 ML BAG IV SCH (17:53)
[2024-11-07] MEDS: APIXABAN 5 MG TABLET PO SCH (20:15)
--- NOTE | 2024-11-08 07:21 | Podiatry Progress Note ---
Date of Service November 07, 2024 Assessment & Plan (1) Status post transmetatarsal amputation of left foot: (2) Peripheral vascular disease due to secondary diabetes: (3) Unstageable pressure ulcer of ankle: Plan Postop day 1 status post transmetatarsal amputation and tendo Achilles lengthening left foot. Wound edges remain well-approximated with all sutures intact. Plantar flaps appears to be well-perfused. Surgical dressing is removed and redressed with a sterile dressing at bedside. Patient encouraged to continue to offload the left foot and remain nonweightbearing until further notice. Right malleoli are wound and left leg wound x 2 redressed with Aquacel Ag and a dry sterile dressing. - Proximal margin pathology pending - Intraoperative soft tissue cultures preliminary growing Pseudomonas aeruginosa, Proteus Mirabilis - Continue nonweightbearing left foot. Continue foot 10 to keep pressure off of distal foot bilateral. - Continue once daily dressing changes to leg and ankle wounds with Aquacel Ag and dry sterile dressing Admission and Anticipated Discharge Date Admission Date: October 30, 2024 Subjective Patient is awake and alert resting comfortably in hospital bed with and [id number] present in room. Surgical dressing changed without incident. Denies pain to the left foot. Denies nausea vomiting fever chills. Review of Systems Review of Systems: Denies nausea, vomiting, fever, chills. Denies shortness of breath or chest pain. All other systems negative unless otherwise stated in HPI. Physical Exam Physical Exam: Focused lower extremity exam: Thin atrophic skin with loss of hair growth bilateral lower extremity below the knee. 3 out of 5 muscle strength at the level of the ankle to all muscle groups bilateral. Left foot: Nonpalpable pedal pulses. -Postop day 1 status post transmetatarsa l amputation left foot. Capillary refill time to the wound edges remains brisk at 2 to 3 seconds. Wound edges remain well-approximated with all sutures intact. Moderate sanguinous drainage to surgical dressing. -Stage IV pressure injury overlying the lateral malleolus with mild maceration of surrounding epithelial tissue. No periwound signs of local soft tissue infection. No active drainage or malodor. -Stage II pressure injury to the posteri or lateral left leg with mixed fibrotic slough and eschar tissue to the wound bed. Decreased wound dimensions since the time of admission. No active drainage. No signs of local soft tissue infection. Scant serous drainage to dressing. Right foot: Nonpalpable pedal pulses. -Stable eschar overlying incision from p revious partial 4th and 5th ray amputation. Surrounding soft tissue stained with Betadine. No active drainage or signs of local soft tissue infection. -There is an unstageable pressure injury overlying the lateral malleolus with mild maceration of periwound epithelial tissue. No active drainage. No signs of local soft tissue infection. Results & Data Results & Data Vital Signs (Past 12 Hours) Vital Signs Temp Pulse Resp BP Pulse Ox O2 Del Method 11/07/24 23:02 36.5 C 75 16 116/75 97 Room Air 11/07/24 21:00 Room Air Coding Level of Care Code 46614 Post Operative Follow-Up Diagnoses Status post transmetatarsal amputation of left foot Z89.432 Peripheral vascular disease due to secondary diabetes E13.51 Pressure injury of ankle, unstageable, unspecified laterality L89.500 Laterality: unspecified laterality (3) Unstageable pressure ulcer of ankle Laterality: unspecified laterality Qualified Code(s): L89.500 - Pressure ulcer of unspecified ankle, unstageable
--- NOTE | 2024-11-08 08:42 | Hospitalist Progress Note ---
<Statement entered by Ed Edwards, - 11/08/24 15:15> I have seen and examined the patient and have discussed the case with the advance practice provider. I have reviewed the advanced practitioner's documentation, and I agree with, and take responsibility for that plan of care. Patient seen with Crystal at bedside as well. States pain is well-controlled. Patient essentially bedbound/wheelchair-bound at baseline. Bed hold at [facility] Continuing antibiotics, anticipate transitioning to oral antibiotics at discharge, communication with case management to anticipate discharge tomorrow I spent a total of 16 minutes coordinating, documenting, and providing care for this patient excluding time spent by another provider/QHP. Date of Service November 08, 2024 Assessment & Plan (1) Tissue necrosis with gangrene in peripheral vascular disease: (2) Wound of left lower extremity: (3) Bilateral pleural effusion: (4) Acute heart failure with preserved ejection fraction (HFpEF): (5) Pulmonary lesion, right: (6) Insulin-requiring or dependent type II diabetes mellitus: (7) PAF (paroxysmal atrial fibrillation): (8) Chronic hyponatremia: (9) History of pulmonary embolism: (10) Buttock wound: (11) Hepatocellular carcinoma: (12) Alcoholic cirrhosis: Plan 84 year old male from [facility] with PMH significant for type 2 diabetes, dyslipidemia, chronic hyponatremia, recurrent right pleural effusion, paroxysmal atrial fibrillation, peripheral vascular disease, hypertension, portal hypertension, history of PE, alcoholic cirrhosis of liver with ascites, GERD, CKD IIIa, 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 Tissue necrosis with gangrene in peripheral vascular disease Follows with [facility] - S/P R ADRIAN & Peroneal angioplasties and right 5th toe amp on 04/09/[address] Mina for severe PAD & gangrene right 5th toe. S/P R Peroneal angioplasty, right 5th MTH amputation, right 4th toe proximal metatarsal amputation on 07/05/[address] Mina for PAD, OM of 5th metatarsal and necrosis of 4th right toe Underwent CTA with runoff and discussion by Vascular and Podiatry who decided to proceed with TMA Blood cultures NGTD Intraoperative cultures prelim growing pseudomonas and proteus mirabilis Continue Zosyn-> transition to PO ciprofloxacin at discharge POD#2 L foot transmetatarsal amputation and left tendoachilles lengthening on 11/06/[address] Oconnell Nonweightbearing LLE-> no need for PT/OT as patient is bed and wheelchair bound with use of lift for transfers at [facility] Per discussion with Dr Oconnell on TT today: plan for dc tomorrow as long as site looks stable Bilateral ankle wounds Wound care recommendations per Podiatry: -Left lateral ankle and leg wounds dressed with Aquacel Ag and bordered foam every other day -Right lateral ankle wound: [place] with Betadine and leave exposed to air Sacral pressure ulcer Wound image on 11/01/2024 Wound care recommendations per WOCN: -Clean with saline, cover each side with its own medium Optifoam, change daily and as needed, remove saturated and soiled dressings immediately Bilateral pleural effusion Heart failure with preserved ejection fraction (HFpEF) Admitting CXR suggestive of congestive changes with bilateral pleural effusions Repeat CXR on 11/01 showed cardiomegaly with interstitial pulmonary edema; unchanged R>L layering pleural effusions with bibasilar opacities Offered right sided thoracentesis mostly for diagnostic purposes given history of hepatocellular carcinoma and liver lesions noted on CTA, however patient declined procedure Note history of prior right pleural effusion s/p thoracentesis in 2019 with cytology being negative at that time Resting echo 11/03 with preserved EF 65-70%, mild concentric LVH, AV sclerosis without significant stenosis Continue daily weights, low salt diet, 1500mL FR Started Lasix 40mg IV daily on 11/01-> transition to home dosing 20mg PO daily Cardiology consulted for preop evaluation and recommended adding high intensity statin post operatively On RA with no SOB Paroxysmal atrial fibrillation Resumed Eliquis on 11/07 Continue metoprolol Type 2 diabetes A1C 5.8% BSG ACHS and SSI while inpatient Alcoholic cirrhosis Appears compensated Continue diuretics and lactulose Chronic hyponatremia Due to underlying liver cirrhosis Sodium 130 today Continue fluid restriction Hepatocellular carcinoma Hx of HCC s/p tumor ablation in 2019, last chemo in 2022 - discontinued due to poor tolerance, patient was previously on hospice for about 3 months however stabilized CTA showed multiple liver lesions, last liver MRI in [address] Cordell Guzman Discussed with , recommend outpatient follow up with Dr. Guzman for further d iscussion regarding additional imaging Pulmonary nodules CXR shows 3.9 cm right hilar nodular focus is likely secondary to summation density associated with pulmonary vasculature CT chest shows foci of round atelectasis in RML and RLL that may correspond to opacity described in CXR Multiple pulmonary nodules noted on CT chest - follow up as outpatient DVT Prophylaxis: Eliquis Code Status: FULL CODE PCP: Adonay Arzola Disposition: anticipate dc back to [facility] tomorrow Patient seen in collaboration with Dr Edwards. Please see addendum. I spent a total of 35 minutes coordinating, documenting and providing care for this patient excluding time spent in the performance of separately billed services or time spent by another provider/QHP. 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 Denies chest pain, SOB, abdominal pain CHIN nair Review of Systems Review of Systems: All systems reviewed & are unremarkable except as noted in Subjective Physical Exam Physical Exam: General/Psych: WD/WN, sitting up in bed, NAD, conversing easily, flat affect Head: normocephalic, atraumatic Eyes: normal inspection, PERRL, conjunctivae pink ENT: external ear and nose normal, oropharynx normal Neck: normal visual inspection, trachea midline Respiratory: normal respiratory effort, lungs diminished but no wheeze/rales/rhonchi, no accessory muscle use Cardiovascular: regular rate and rhythm, no murmur/rub/gallop, no JVD Extremities: no cyanosis or clubbing, normal peripheral pulses, no BLE edema, sensation intact BLE Abdomen/GI: normal bowel sounds, soft, nontender Neurologic/MSK: A+Ox3, moves all extremities Skin: no rashes, normal color, warm and dry; left foot wrapped in becky bandage c/d/i Results & Data Results & Data Vital Signs (Past 12 Hours) Vital Signs Temp Pulse Resp BP Pulse Ox O2 Del Method 11/08/24 07:37 36.7 C 85 16 127/82 99 Room Air 11/07/24 23:02 36.5 C 75 16 116/75 97 Room Air 11/07/24 21:00 Room Air Laboratory Results Short CBC 11/08/24 Range/Units 09:23 WBC 11.90 H (4.8-10.8) K/ul Hgb 11.5 L (14.0-18.0) g/dl Hct 34.8 L (42.0-52.0) % Plt Count 271 (130-400) K/uL BMP 11/08/24 09:23 Sodium 130 L Potassium 3.8 Chloride 98 Carbon Dioxide 26 BUN 15 Creatinine 0.79 Glucose 173 H Calcium 8.7 I have independently reviewed and interpreted patient's labs including CBC, BMP, mag Medications Administered Current Inpatient Medications Acetaminophen (Acetaminophen 325 Mg Tab) 650 mg PO Q4H PRN PRN Reason: pain/fever Stop: 11/29/24 18:29 Acetaminophen (Acetaminophen 500 Mg Tab) 1,000 mg PO TID DARREN Stop: 11/30/24 20:59 Last Admin: 11/08/24 14:19 Dose: 1,000 mg Al Hydrox/Mg Hydrox/Simethicone (Aluminum/Magnesium Susp 30 Ml Udc) 30 ml PO Q6H PRN PRN Reason: Dyspepsia Stop: 11/29/24 18:29 Apixaban (Apixaban 5 Mg Tablet) 5 mg PO BID DARREN Stop: 12/07/24 20:59 Last Admin: 11/08/24 09:04 Dose: 5 mg Aspirin (Aspirin 81 Mg Ectab) 81 mg PO DAILY DARREN Stop: 12/01/24 08:59 Last Admin: 11/08/24 09:03 Dose: 81 mg Atorvastatin Calcium (Atorvastatin 40 Mg Tab) 40 mg PO QAM [facility] Stop: 12/08/24 08:59 Last Admin: 11/08/24 09:04 Dose: 40 mg Dextrose (Dextrose 50% 50 Ml Syringe) 25 - 50 ml IV UD PRN; Protocol PRN Reason: Hypoglycemia Protocol Stop: 11/29/24 18:29 Furosemide (Furosemide 20 Mg Tab) 20 mg PO QAM DARREN Stop: 12/08/24 08:59 Last Admin: 11/08/24 09:04 Dose: 20 mg Glucagon (Glucagon For Inj 1 Mg Vial) 1 mg SQ UD PRN; Protocol PRN Reason: Hypoglycemia Protocol Stop: 11/29/24 18:29 Glucose (Glucose 40% Gel 15 Gm Tube) 15 - 30 gm PO UD PRN; Protocol PRN Reason: Hypoglycemia Protocol Stop: 11/29/24 18:29 Glucose (Glucose 10 Tab/Tube) 4 - 8 tab PO UD PRN; Protocol PRN Reason: Hypoglycemia Protocol Stop: 11/29/24 18:29 Piperacillin Sod/Tazobactam Sod (Zosyn) 4.5 gm in 100 mls @ 25 mls/hr IV Q8H [facility]; Protocol Stop: 11/13/24 15:59 Last Admin: 11/08/24 10:36 Dose: 25 mls/hr Magnesium Sulfate/Dextrose (Magnesium Sulfate / D5w) 1 gm in 100 mls @ 50 mls/hr IV Q2H [facility] Stop: 11/08/24 19:14 Insulin Aspart (Insulin Aspart Per Unit Charge) 0 units SC ACHS DARREN Stop: 12/06/24 20:59 Last Admin: 11/08/24 12:36 Dose: 9 units Lactulose (Lactulose Syrup 20 Gm/30 Ml Udc) 10 gm PO BID DARREN Stop: 11/29/24 20:59 Last Admin: 11/08/24 09:02 Dose: 10 gm Levalbuterol HCl (Levalbuterol 1.25 Mg/3 Ml Neb) 1.25 mg NEB Q4H PRN PRN Reason: Shortness Of Breath Or Wheezing Stop: 11/29/24 22:56 Last Admin: 10/31/24 20:58 Dose: 1.25 mg Magnesium Hydroxide (Magnesium Hydroxide Susp 30 Ml Udc) 30 ml PO Q6H PRN PRN Reason: Constipation Stop: 11/29/24 18:29 Magnesium Oxide (Magnesium Oxide 400 Mg Tab) 400 mg PO QAM [facility] Stop: 12/05/24 08:59 Last Admin: 11/08/24 09:04 Dose: 400 mg Melatonin (Melatonin 3 Mg Tab) 3 mg PO HS PRN PRN Reason: Insomnia Stop: 11/29/24 18:29 Last Admin: 11/05/24 20:36 Dose: 3 mg Metoprolol Succinate (Metoprolol Succ 50mg Ext Rel Tab) 100 mg PO DAILY [facility] Stop: 11/30/24 08:59 Last Admin: 11/08/24 09:03 Dose: 100 mg Miconazole Nitrate (Miconazole Nitrate Powder 85 Gm) 1 appln EXT BID [facility] Stop: 12/02/24 22:59 Last Admin: 11/08/24 09:05 Dose: 1 appln Miscellaneous (Carbohydrates For Hypoglycemia ) 15 - 30 gm PO UD PRN PRN Reason: Hypoglycemia Protocol Stop: 11/29/24 18:29 Nystatin (Nystatin Powder 15gm Btl) 1 appln EXT PRN PRN PRN Reason: Affected Skin Folds Stop: 11/29/24 23:04 Last Admin: 11/04/24 09:16 Dose: 1 appln Ondansetron HCl (Ondansetron Inj 2 Mg/Ml 2 Ml Vial) 4 mg IV Q6H PRN PRN Reason: Nausea Stop: 11/29/24 18:29 Senna/Docusate Sodium (Docusate Sodium/Senna 50/8.6mg Tab) 2 tab PO HS DARREN Stop: 11/30/24 20:59 Last Admin: 11/07/24 20:15 Dose: 2 tab Spironolactone (Spironolactone 12.5 Mg Tab) 12.5 mg PO DAILY DARREN Stop: 12/01/24 08:59 Last Admin: 11/08/24 09:04 Dose: 12.5 mg Tramadol HCl (Tramadol Hcl 50 Mg Tablet) 50 mg PO Q6H PRN PRN Reason: Pain Stop: 11/30/24 14:01 Trazodone HCl (Trazodone Hcl 50 Mg Tab) 50 mg PO HS DARREN Stop: 12/03/24 20:59 Last Admin: 11/07/24 20:15 Dose: 50 mg
[2024-11-08] MEDS: FUROSEMIDE 20 MG TAB PO SCH (09:04)
[2024-11-08] MEDS: ATORVASTATIN 40 MG TAB PO SCH (09:04)
[2024-11-08 09:51] LABS: Hematocrit (blood only) 34.8 % (42.0-52.0); Hemoglobin 11.5 g/dl (14.0-18.0); Mean Corpuscular Hemoglobin 31.3 pg (25.0-34.0); Mean Corpuscular Volume 94.6 fL (80.0-100.0); Platelet Count 271 K/uL (130-400); RDW Standard Deviation 49.0 fL (36.4-46.3); Red Blood Count 3.68 M/uL (4.70-6.10); White Blood Count 11.90 K/ul (4.8-10.8)
[2024-11-08 10:06] LABS: Anion Gap 6.0 (3-11); Blood Urea Nitrogen 15.0 mg/dl (6-23); Calcium 8.7 mg/dl (8.6-10.3); Carbon Dioxide 26.0 mmol/L (21-32); Chloride 98.0 mmol/L (98-107); Creatinine Clr Calc Pharmacy 86.7 ml/min; Glucose 173.0 mg/dl (70-99(Fasting)); Magnesium 1.6 mg/dl (1.7-2.4); Potassium 3.8 mmol/L (3.5-5.1); Sodium 130.0 mmol/L (136-145)
--- NOTE | 2024-11-08 15:33 | Podiatry Progress Note ---
Date of Service November 08, 2024 Assessment & Plan (1) Status post transmetatarsal amputation of left foot: (2) Peripheral vascular disease due to secondary diabetes: (3) Unstageable pressure ulcer of ankle: Plan Postop day 1 status post transmetatarsal amputation and tendo Achilles lengthening left foot. Wound edges remain well-approximated with all sutures intact. Plantar flaps appears to be well-perfused. Surgical dressing is removed and redressed with a sterile dressing at bedside. Patient encouraged to continue to offload the left foot and remain nonweightbearing until further notice. Right malleoli are wound and left leg wound x 2 redressed with Aquacel Ag and a dry sterile dressing. - Proximal margin pathology pending - Intraoperative soft tissue cultures preliminary growing Pseudomonas aeruginosa, Proteus Mirabilis and Staph aureus - Continue nonweightbearing left foot. Continue foot tent to keep pressure off of distal foot bilateral. - Continue once daily dressing changes to leg and ankle wounds with Aquacel Ag and dry sterile dressing. Okay for discharge from podiatry standpoint following antibiotic adjustment. Continue nonweightbearing to left foot. Dressing changes to the amputation site every other day with Xeroform along the incision, 4 x 4 fluff gauze Sb and tape. Continue once daily dressing changes to leg and ankle wounds with Aquacel Ag and dry sterile dressing.Continue nonweightbearing left foot. Follow-up in the wound center with myself within 2 weeks of discharge for suture removal and reevaluation of bilateral leg wounds Admission and Anticipated Discharge Date Admission Date: October 30, 2024 Subjective Patient seen resting comfortably in hospital bed. Denies pain to left foot. F oot remains elevated on pillow with the heel floated and dressing clean dry and intact. Review of Systems Review of Systems: All systems reviewed & are unremarkable except as noted in Subjective Physical Exam Physical Exam: Focused lower extremity exam: Thin atrophic skin with loss of hair growth bilateral lower extremity below the knee. 3 out of 5 muscle strength at the level of the ankle to all muscle groups bilateral. Left foot: Nonpalpable pedal pulses. -Postop day 2 status post transmetatarsa l amputation left foot. Capillary refill time to the wound edges remains brisk at 2 to 3 seconds. Wound edges remain well-approximated with all sutures intact. Scant sanguinous drainage to surgical dressing. -Stage IV pressure injury overlying the lateral malleolus with mild maceration of surrounding epithelial tissue. No periwound signs of local soft tissue infection. No active drainage or malodor. -Stage II pressure injury to the posteri or lateral left leg with mixed fibrotic slough and eschar tissue to the wound bed. Decreased wound dimensions since the time of admission. No active drainage. No signs of local soft tissue infection. Scant serous drainage to dressing. Right foot: Nonpalpable pedal pulses. -Stable eschar overlying incision from p revious partial 4th and 5th ray amputation. Surrounding soft tissue stained with Betadine. No active drainage or signs of local soft tissue infection. -There is an unstageable pressure injury overlying the lateral malleolus with mild maceration of periwound epithelial tissue. No active drainage. No signs of local soft tissue infection. Results & Data Results & Data Vital Signs (Past 12 Hours) Vital Signs Temp Pulse Pulse Resp BP Pulse Ox O2 Del Method 11/08/24 15:02 36.6 C 79 16 131/75 98 Room Air 11/08/24 07:50 Room Air 11/08/24 07:37 36.7 C 85 16 127/82 99 Room Air Coding Level of Care Code 98948 Post Operative Follow-Up Diagnoses Status post transmetatarsal amputation of left foot Z89.432 Peripheral vascular disease due to secondary diabetes E13.51 Pressure injury of ankle, unstageable, unspecified laterality L89.500 Laterality: unspecified laterality (3) Unstageable pressure ulcer of ankle Laterality: unspecified laterality Qualified Code(s): L89.500 - Pressure ulcer of unspecified ankle, unstageable
[2024-11-08] MEDS: MAGNESIUM SULFATE / D5W 1 GM/100 ML BAG IV SCH (15:38)
[2024-11-09 07:06] LABS: Hematocrit (blood only) 33.6 % (42.0-52.0); Hemoglobin 11.1 g/dl (14.0-18.0); Mean Corpuscular Hemoglobin 31.3 pg (25.0-34.0); Mean Corpuscular Volume 94.6 fL (80.0-100.0); Platelet Count 252 K/uL (130-400); RDW Standard Deviation 49.8 fL (36.4-46.3); Red Blood Count 3.55 M/uL (4.70-6.10); White Blood Count 10.71 K/ul (4.8-10.8)
[2024-11-09 07:28] LABS: Anion Gap 5.0 (3-11); Blood Urea Nitrogen 16.0 mg/dl (6-23); Calcium 8.5 mg/dl (8.6-10.3); Carbon Dioxide 27.0 mmol/L (21-32); Chloride 98.0 mmol/L (98-107); Creatinine Clr Calc Pharmacy 91.1 ml/min; Glucose 133.0 mg/dl (70-99(Fasting)); Potassium 3.7 mmol/L (3.5-5.1); Sodium 130.0 mmol/L (136-145)
[2024-11-09 07:51] VITALS: BP 116/76; PULSE 80; TEMP 98.1; O2SAT 99
[2024-11-09] MEDS ORDERED: MAGNESIUM SULFATE / D5W 1 GM/100 ML BAG IV SCH (08:30)
[2024-11-09] MEDS: MAGNESIUM OXIDE 400 MG TAB PO SCH (09:04)
--- NOTE | 2024-11-09 11:19 | Discharge Summary ---
<Statement entered by Ed Edwards DO - 11/09/24 11:49> I have seen and examined the patient and have discussed the case with the advance practice provider. I have reviewed the advanced practitioner's documentation, and I agree with, and take responsibility for that plan of care. No acute events overnight. Overall doing well. Continue to care for wound and continue oral antibiotics at long term facility Further discharge plans as outlined below I spent a total of 17 minutes coordinating, documenting, and providing care for this patient excluding time spent by another provider/QHP. Discharge Summary Date of Service November 09, 2024 Principal Dx & Hospital Course #1 = Principal Diagnosis (1) Tissue necrosis with gangrene in peripheral vascular disease: (2) Wound of left lower extremity: (3) Bilateral pleural effusion: (4) Acute heart failure with preserved ejection fraction (HFpEF): (5) Pulmonary lesion, right: (6) Insulin-requiring or dependent type II diabetes mellitus: (7) PAF (paroxysmal atrial fibrillation): (8) Chronic hyponatremia: (9) History of pulmonary embolism: (10) Buttock wound: (11) Hepatocellular carcinoma: (12) Alcoholic cirrhosis: Plan 84 year old male from [facility] with PMH significant for type 2 diabetes, dyslipidemia, chronic hyponatremia, recurrent right pleural effusion, paroxysmal atrial fibrillation, peripheral vascular disease, hypertension, portal hypertension, history of PE, alcoholic cirrhosis of liver with ascites, GERD, CKD IIIa, 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 Tissue necrosis with gangrene in peripheral vascular disease Follows with [facility] - S/P R ADRIAN & Peroneal angioplasties and right 5th toe amp on 04/09/[address] Mina for severe PAD & gangrene right 5th toe. S/P R Peroneal angioplasty, right 5th MTH amputation, right 4th toe proximal metatarsal amputation on 07/05/[address] Mina for PAD, OM of 5th metatarsal and necrosis of 4th right toe Underwent CTA with runoff and discussion by Vascular and Podiatry who decided to proceed with TMA Intraoperative cultures prelim growing pseudomonas and proteus mirabilis, Blood cultures NGTD Continue Zosyn-> transition to PO ciprofloxacin at discharge for 14 days POD#3 L foot transmetatarsal amputation and left tendoachilles lengthening on 11/06/[address] Oconnell Nonweightbearing LLE-> no need for PT/OT as patient is bed and wheelchair bound with use of lift for transfers at [facility] Follow up in wound clinic with Dr. Oconnell in 2 weeks for suture removal and re- evaluation of BLE wounds Wound care instructions: Dressing changes to the amputation site every other day with Xeroform along the incision, 4 x 4 fluff gauze Sb and tape Bilateral ankle wounds Wound care recommendations per Podiatry: -Continue once daily dressing changes to leg and ankle wounds with Aquacel Ag and dry sterile dressing Sacral pressure ulcer Wound image on 11/01/2024 Wound care recommendations per WOCN: -Clean with saline, cover each side with its own medium Optifoam, change daily and as needed, remove saturated and soiled dressings immediately Bilateral pleural effusion Heart failure with preserved ejection fraction (HFpEF) Admitting CXR suggestive of congestive changes with bilateral pleural effusions Repeat CXR on 11/01 showed cardiomegaly with interstitial pulmonary edema; unchanged R>L layering pleural effusions with bibasilar opacities Offered right sided thoracentesis mostly for diagnostic purposes given history of hepatocellular carcinoma and liver lesions noted on CTA, however patient declined procedure Note history of prior right pleural effusion s/p thoracentesis in 2019 with cytology being negative at that time Resting echo 11/03 with preserved EF 65-70%, mild concentric LVH, AV sclerosis without significant stenosis Continue daily weights, low salt diet, 1500mL FR Started Lasix 40mg IV daily on 11/01-> transition to home dosing 20mg PO daily on 11/08/24 Cardiology consulted for preop evaluation and recommended adding high intensity statin post operatively Has remained on room air, no SOB Paroxysmal atrial fibrillation Resumed Eliquis on 11/07 Continue metoprolol Type 2 diabetes A1C 5.8% BSG ACHS and SSI while inpatient Alcoholic cirrhosis Appears compensated Continue diuretics and lactulose Chronic hyponatremia Due to underlying liver cirrhosis Sodium stable at 130 Continue fluid restriction Hepatocellular carcinoma Hx of HCC s/p tumor ablation in 2019, last chemo in 2022 - discontinued due to poor tolerance, patient was previously on hospice for about 3 months however stabilized CTA showed multiple liver lesions, last liver MRI in [address] Cordell Guzman Discussed with , recommend outpatient follow up with Dr. Guzman for further discussion regarding additional imaging Pulmonary nodules CXR shows 3.9 cm right hilar nodular focus is likely secondary to summation density associated with pulmonary vasculature CT chest shows foci of round atelectasis in RML and RLL that may correspond to opacity described in CXR Multiple pulmonary nodules noted on CT chest - follow up as outpatient Notes For Next Care Provider Tissue necrosis in setting of PAD/DM II 2-5th L toes s/p TMA by Dr. Oconnell on 11/06 - f/u in wound clinic in 2 weeks, cont. Cipro for 2 weeks Treated with IV diuresis for acute on chronic CHF -resumed to baseline diuretic Medication Changes From Visit see meds per instructions below Admission HPI Per Admitting Provider Patient 84-year-old gentleman resident at [facility] sent send to the emergency room with increasing severity of wounds on his foot and toes becoming necrotic. In the emergency room patient had obvious necrotic toes and slightly elevated white blood cell count. Was referred to our service for further evaluation and treatment after received some IV antibiotics. ED physician did send pictures to podiatry and vascular surgery. They recommended continuing antibiotics and will evaluate for possible interventions tomorrow. Time my evaluation patient really did have any complaints. He really could not contribute much at all to his history. He denied any specific pain. Not sure when he started noticed the feet were black. Reviewing minimal records sent from the nursing facility indicated that of the foot seem to acutely worsen over the last 24 hours or so. Extremely limited information sent from the [facility]. Admission Exam Per Admitting Provider Constitutional: Alert, ill in appearance, nontoxic HEENT: Mucous membranes moist. Sclera clear Neck: Soft, no adenopathy Lungs: Clear to auscultation, decreased, no wheezes rales or rhonchi CV: S1-S2, regular Abdomen: Soft, nontender, nondistended Extremities: No significant edema Musculoskeletal: Multiple open wounds on both feet, toes 2 through 5 on the left foot are necrotic and dry gangrene. There is some swelling and redness of the forefoot. Minimal tenderness Neuro: No focal deficits Psych: Cooperative, normal mood Discharge Exam Gen: WD/WN, NAD, resting in bed comfortably, pleasant, limited insight HEENT: Normocephalic, atraumatic, mucous membranes moist Lung: Improved but still diminished, improves after cough Heart: irregular rate& rhythm Abdomen: Soft, NT, ND +BS x 4 Extremities:+L foot s/p amputation with dressing c/d/i Skin: Warm Updated Medication List Medication Instructions Recorded Confirmed Type apixaban 5 mg tablet (Eliquis) 5 mg PO BID 10/30/24 10/31/24 History furosemide 20 mg tablet 20 mg PO DAILY 10/30/24 10/31/24 History insulin glargine 100 unit/mL (3 18 unit subcut HS 10/30/24 10/31/24 History mL) subcutaneous pen (Lantus Solostar U-100 Insulin) lactulose 10 gram/15 mL oral 15 ml PO BID 10/30/24 10/31/24 History solution metoprolol succinate 100 mg 100 mg PO DAILY 10/30/24 10/31/24 History tablet,extended release 24 hr spironolactone 25 mg tablet 12.5 mg PO DAILY 10/30/24 10/31/24 History trazodone 50 mg tablet 50 mg PO HS 10/30/24 11/03/24 History acetaminophen 500 mg tablet 1,000 mg PO TID 10/31/24 10/31/24 History (Tylenol Extra Strength) aspirin 81 mg tablet 81 mg PO DAILY 10/31/24 10/31/24 History sennosides 8.6 mg-docusate sodium 2 tab-cap PO HS 10/31/24 10/31/24 History 50 mg tablet (Senna-S) tramadol 50 mg tablet 50 mg PO Q6H PRN Pain 10/31/24 10/31/24 History atorvastatin 40 mg tablet 40 mg PO QAM #30 tabs 11/09/24 Rx ciprofloxacin HCl 500 mg tablet 500 mg PO BID #28 tabs 11/09/24 Rx guaifenesin 600 mg tablet, 600 mg PO BID PRN cough #20 tabs 11/09/24 Rx extended release 12 hr (Mucinex) lactobacillus combo no.11 15 1 cap PO DAILY #14 caps 11/09/24 Rx billion cell sprinkle capsule (Probiotic) magnesium oxide 400 mg (241.3 mg 400 mg PO DAILY #30 tabs 11/09/24 Rx magnesium) tablet miconazole nitrate 2 % topical 1 applic EXT BID PRN skin folds 11/09/24 Rx powder (Desenex) #85 grams Hospital Stay Data Consultations 10/30/24 13:25 ED Decision to Admit Stat 10/30/24 18:30 Consult Podiatry Routine Consult Vascular Surgery Routine 11/02/24 12:05 Consult Cardiology Routine Procedures Performed Operation Date: 11/06/24 14:10 Actual Procedures p Left Foot Transmetatarsal Amputation, Left Tendoachilles Lengthening(Left) - Cj Oconnell DPM Diagnostic Imagining Performed 10/31/24 09:12 US arterial duplex LE LT Routine 11/01/24 13:12 CTA abd aorta runof w con [CT ang AA runof w inc wo ifdon] Routine 11/02/24 08:00 CT chest diagnostic wo con Routine 11/02/24 11:51 US effusion-chest/mediastinum Routine Pending Results Patient Have Any Pending Studies at Discharge: No Discharge Instructions Given to Patient (Per Discharging Provider) MEDICATION CHANGES: NEW: Ciprofloxacin 500mg by mouth twice daily x 14 days forLeft foot infection Probiotic daily x 14 days for GI Health. Magnesium oxide 400mg daily Atorvastatin 40mg every evening for peripheral artery disease PENDING LABS: Proximal margin pathology pending Intraoperative soft tissue cultures preliminary growing Pseudomonas aeruginosa, Proteus Mirabilis and Staph aureus RECOMMENDATIONS FOR FOLLOW-UP: Follow up with Dr. Oconnell in wound care center in 2 weeks for suture removal and re-evaluation of leg wounds Dressing instructions: Dressing changes to the amputation site every other day with Xeroform along the incision, 4 x 4 fluff gauze Sb and tape Continue once daily dressing changes to leg and ankle wounds with Aquacel Ag and dry sterile dressing Activity instructions: Encouraged to offload the left foot and remain nonweightbearing until further notice Follow up with PCP as scheduled Complete antibiotic in its entirety. Continue medication regimen as scheduled aside from changes noted above. For abnormal liver lesions and h/o HCC - recommend outpatient follow up with Dr. Guzman for further discussion regarding additional imaging For multiple pulmonary nodules noted on CT chest - follow up with PCP as outpatient OTHER INSTRUCTIONS: Seek medical attention if you have: * temperature above 101 * chest pain or trouble breathing * abdominal pain, nausea, vomiting * diarrhea, dark stools or bloody stools * any unanswered questions or concerns Call 911 if symptoms are severe. Please take good care of yourself. Call if you have any questions or problems. You can reach a [facility] hospitalist on duty at [facility] 24 hours a day by calling [phone]. Total Time Total Time Spent Total Time Spent (In Minutes): 60
--- NOTE | 2024-11-10 07:11 | Coding Query ---
PRESSURE ULCER DOCUMENTATION To promote full compliance with coding requirements relating to patient care, physician participation is requested in all cases of detective automobile section uncertainty. Please assist us with the question(s) below: Please specify the known or suspected type by placing an "X" within the parenthesis (x). A pressure ulcer of the SACRAL PRESSURE ULCER (documentation of Sacral Pressure Ulcer begins on the 11/07 Progress Note) If possible, please check the box that provides the specific stage of the pressure ulcer ( ) Stage I (x ) Stage II ( ) Stage III ( ) Stage IV ( ) Unstageable Was the pressure ulcer present on admission? Please check the appropriate box for the pressure ulcer: (x ) Present on admission ( ) Not present on admission ( ) Unable to be clinically determined Thank you Kavya GARCIA
--- NOTE | 2024-11-10 07:17 | Coding Query ---
PRESENT ON ADMISSION QUERY To promote full compliance with coding requirements relating to pateint care, physician participation is requested in all cases of table games manager uncertainty. Please assist us with the question(s) below: Please place an X within the parenthesis (x). The following diagnosis(es) listed in this patient's medical record require physician assistance to determine if they were present on admission (POA) or not. Please advise for each diagnosis whether it was present on admission, not present on admission, or if it was clinically undetermined. 1.Buttock Wound - Left Buttock Wound DTI (Deep Tissue Injury) - documentation starts on the 11/01 Progress Note: ( x) Present On Admission ( ) Not Present On Admission ( ) Clinically Undetermined ( ) Other - This is Sacral Pressure Ulcer (POA status will be answered on the Query regarding Sacral Pressure Ulcer staging/POA) 2.Buttock Wound - Right Buttock stage 2 - documentation starts on the 11/01 Progress Note: ( x) Present On Admission ( ) Not Present On Admission ( ) Clinically Undetermined ( ) Other - This is Sacral Pressure Ulcer ( (POA status will be answered on the Query regarding Sacral Pressure Ulcer staging/POA) Thank you Kavya Durán *Definition of the present on admission (POA)-Present on admission is defined as present at the time the order for inpatient admission occurs. Conditions that develop during an outpatient encounter prior to a written order for inpatient admission (including emergency department, observation, or outpatient surgery) are considered present on admission. JOSE
--- NOTE | 2024-11-10 07:23 | Coding Query ---
PRESENT ON ADMISSION QUERY To promote full compliance with coding requirements relating to pateint care, physician participation is requested in all cases of hospital coder uncertainty. Please assist us with the question(s) below: Please place an X within the parenthesis (x). The following diagnosis(es) listed in this patient's medical record require physician assistance to determine if they were present on admission (POA) or not. Please advise for each diagnosis whether it was present on admission, not present on admission, or if it was clinically undetermined. 1. 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 Stage II pressure injury to the posterior lateral left leg with mixed fibrotic slough and eschar tissue to the wound bed -(under Left Foot on 10/31 Podiatry Consultation) ( x) Present On Admission ( ) Not Present On Admission ( ) Clinically Undetermined 3.There is an unstageable pressure injury overlying the lateral malleolus with mild maceration of periwound epithelial tissue -(under Right Foot on 10/31 Podiatry Consultation) (x ) Present On Admission ( ) Not Present On Admission ( ) Clinically Undetermined Thank you Kavya Durán *Definition of the present on admission (POA)-Present on admission is defined as present at the time the order for inpatient admission occurs. Conditions that develop during an outpatient encounter prior to a written order for inpatient admission (including emergency department, observation, or outpatient surgery) are considered present on admission. JOSE
== END 2024-11-09 12:58 | DRG 239 ==
LOC: ED 10:39 → 3N 13:43 → SUATTDRO 13:43 → 3N 17:49 → 2W 22:43 → 3W 11-04 23:06